=== PATIENT | male | born 1930 | race Caucasian/White ===

== ENCOUNTER 2016-07-11 00:30 | Emergency (ER) | payer OTHER, MEDICARE ==
[~2016-07-11] VITALS: Ht 170.2 cm; Wt 73.5 kg
[~2016-07-11 00:30] MED LIST: ANASTROZOLE1 M1 PO; ASPIRIN EC325 M2 PO; BALANCED B-1001 EACH PO; CALCIUM600 M3 PO; FISH OIL CONC1000 M1 PO; GINKGO BILOBA30 MG PO; LEVOTHROID0.025 MG PO; LOPRESSOR 25MG25 MG PO; METAMUCIL PACK3.4 GM PO; METOPROLOL PO; NIASPAN500 M1 PO; NIFEDIPINE ER30 M2 PO; PERCOCET MONOGRA5 MG PO; PRESERVISION A1 EAC1 PO; VITAMIN D31000 UNI2 PO; ZANTAC150 M1 PO
--- NOTE | 2016-07-11 00:35 | ED AMS/SEIZURE/WEAK/DIZZY ---
History of Present Illness General Chief Complaint: General Adult Stated Complaint: " BIBA PER EMS WEAKNESS" Source: patient Exam Limitations: no limitations Vital Signs & Intake/Output Vital Signs & Intake/Output Vital Signs Date Time Temp Pulse Resp B/P Pulse O2 O2 Flow FiO2 Ox Delivery Rate 07/11 1104 75 18 144/68 96 Room Air 07/11 0801 97.1 82 18 115/69 98 Room Air 07/11 0703 97.7 61 18 145/71 95 Room Air 07/11 0106 100 Room Air 07/11 0050 98.8 81 18 148/75 94 Room Air Allergies Coded Allergies: lansoprazole (UPSET STOMACH 09/02/15) lovastatin (UPSET STOMACH 09/02/15) rosuvastatin (UPSET STOMACH 09/02/15) alendronate sodium (UPSET STOMACH 09/02/15) esomeprazole (UPSET STOMACH 09/02/15) ezetimibe (UPSET STOMACH 09/02/15) fenofibrate (UPSET STOMACH 09/02/15) Reconcile Medications Anastrozole 1 MG TAB 1 TAB PO DAILY breast cancer (Reported) Aspirin (Ecotrin) 325 MG ECT 1 PO DAILY HEART HEALTH (Reported) [CALCIUM] 600 MG 1 PO TID SUPPLEMENT (Reported) Cholecalciferol (Vitamin D3) 1,000 UNIT TABLET 3 PO DAILY SUPPLEMENT ( Reported) Fish Oil (Fish Oil Concentrate) 1,000 MG SGL 1 PO BID SUPPLEMENY (Reported) Ginkgo Biloba (Ginkgo Biloba Extract) 30 MG TAB 1 PO DAILY SUPPLEMENT ( Reported) Levothyroxine Sodium (Levothroid) 0.025 MG TAB 0.025 MG PO DAILY AC hypothyroidism Metoprolol Tartrate (Lopressor) 25 MG TAB 25 MG PO BID HTN Niacin (Niaspan) [address] TAB PO DAILY SUPPLEMENT (Reported) Nifedipine (Nifedipine ER) 30 MG TAB.ER.24 1 TAB PO DAILY BLOOD PRESSURE ( Reported) Oxycodone/Acetaminophen (Percocet 5-325 MG Tablet) 5 MG-325 MG TABLET 1-2 TAB PO Q4P PRN PAIN [PRESERVISION] 2 PO DAILY (Reported) Psyllium Hydrophylic Muciloid (Metamucil Packet) 3.4 GRAM POWD.PACK 1 PO DAILY BOWEL HEALTH (Reported) Ranitidine (Zantac) 150 MG TABLET 1 PO DAILY ACID REFLUX (Reported) Vitamin B Complex 1 EACH CAPSULE 1 PO DAILY SUPPLEMENT (Reported) Triage Nurses Notes Reviewed? yes Onset: Abrupt Duration: minute(s): Timing: single episode today Injury Environment: home Severity: moderate Modifying Factors: Improves With: rest. Associated Symptoms: i COULDN'T MOVE BOTH MY LEGS. bUT NOW i FEEL FINE HPI: 86yo gentleman presents with feeling very weak for the past few days, and then tonight he couldn't stand to use the bathroom. "My legs were very weak, both of them. It was hard to stand. But then after a couple minutes, I felt better." He notes that the symptoms started around 7 PM and then self resolved in around 30 minutes. He notes that he felt no chest pain dizziness shortness of breath lightheadedness. He is otherwise well. (JORGE A HARRELL,MARGA Caputo) Past History Travel History Traveled to [place] past 21 day No Medical History Any Pertinent Medical History? see below for history Neurological: NONE EENT: NONE Cardiovascular: hypertension, hyperlipidemia, myocardial infarction, NSTEMI Respiratory: NONE Gastrointestinal: GERD Hepatic: NONE Renal: NONE Musculoskeletal: NONE Psychiatric: NONE Endocrine: NONE Blood Disorders: NONE Cancer(s): breast cancer, prostate cancer FINGERPRINT CLASSIFIER/Reproductive: NONE History of MRSA: No History of VRE: No History of CDIFF: No Tetanus Vaccine: 11/01/11 Surgical History Surgical History: hernia repair-umbilical, masectomy Psychosocial History Who do you live with Family Services at Home None What is your primary language Nepali Family History Hx Contributory? No (JORGE A HARRELL,MARGA Caputo) Review of Systems Review of Systems Constitutional: Reports: no symptoms. EENTM: Reports: no symptoms. Respiratory: Reports: no symptoms. Cardiovascular: Reports: no symptoms. GI: Reports: no symptoms. Genitourinary: Reports: no symptoms. Musculoskeletal: Reports: no symptoms. Skin: Reports: no symptoms. Neurological/Psychological: Reports: no symptoms. Hematologic/Endocrine: Reports: no symptoms. Immunologic/Allergic: Reports: no symptoms. All Other Systems: Reviewed and Negative (JORGE A HARRELL,MARGA Caputo) Physical Exam Physical Exam General Appearance: well developed/nourished, no apparent distress Head: atraumatic, normal appearance Eyes: Bilateral: normal appearance. Ears, Nose, Throat: normal pharynx, normal ENT inspection Neck: normal inspection, supple, full range of motion Respiratory: normal breath sounds, chest non-tender, no respiratory distress, quiet respiration Cardiovascular: regular rate/rhythm Gastrointestinal: normal bowel sounds, soft, non-tender Back: normal inspection Extremities: normal range of motion Neurologic/Psych: no motor/sensory deficits, awake, alert, oriented x 3 Skin: intact, normal color, warm/dry Core Measures ACS in differential dx? No CVA/TIA Diagnosis: No Severe Sepsis Present: No Septic Shock Present: No (JORGE A HARRELL,MARGA Caputo) Progress Differential Diagnosis: electrolyte abnormality, dehydration, UTI versus other. Plan of Care: Orders Procedure Date/time Status Regular Diet 07/11 B Active PT Evaluate & Treat 07/11 653 Active CASE MANAGEMENT CONSULT 07/11 653 Active URINALYSIS 07/11 34 Complete TROPONIN LEVEL 07/11 34 Complete LIPASE 07/11 34 Complete HEPATIC FUNCTION PANEL 07/11 34 Complete CBC WITHOUT DIFFERENTIAL 07/11 34 Complete BASIC METABOLIC PANEL 07/11 34 Complete AMYLASE 07/11 34 Complete EKG 07/11 34 Active Gait Training, 15 Min 07/11 UNK Complete PT EVAL LOW COMPLEX 20 MIN 07/11 UNK Complete Laboratory Tests 07/11/16 0258: Urinalysis LIGHT H, Urine Color YEL, Urine Clarity CLEAR, Urine pH 7.5, Ur Specific [place] 1.015, Urine Protein TRACE H, Urine Ketones NEG, Urine Nitrite NEG, Urine Bilirubin NEG, Urine Urobilinogen 0.2, Ur Leukocyte Esterase NEG, Ur Microscopic SEDIMENT EXAMINED, Urine RBC 1-3, Urine WBC 1-3 H, Urine Hemoglobin NEG, Urine Glucose NEG 07/11/16 0050: Anion Gap 9, Estimated GFR > 60, BUN/Creatinine Ratio 18.9, Glucose 111 H, Calcium 9.7, Total Bilirubin 0.6, Direct Bilirubin 0.4, AST 36, ALT 38, Alkaline Phosphatase 70, Troponin I < 0.01, Total Protein 7.5, Albumin 4.0, Amylase 86, Lipase 111, CBC w Diff NO MAN DIFF REQ, RBC 4.54 L, MCV 94.5 H, MCH 33.0 H, RDW 12.8, MPV 6.9 L, Gran % 82.0 H, Lymphocytes % 6.8 L, Monocytes % 9.9 H, Eosinophils % 1.3, Basophils % 0 L, Absolute Granulocytes 7.1 H, Absolute Lymphocytes 0.6 L, Absolute Monocytes 0.9 H, Absolute Eosinophils 0.1, Absolute Basophils 0, PUBS MCHC 34.9 Diagnostic Imaging: Viewed by Me: Radiology Read, CT Scan. Discussed w/RAD: Radiology Read, CT Scan. Radiology Impression: HEAD CT... NO ACUTE DISEASE... FULL REPORT BELOW Initial ED EKG: normal axis, normal intervals, normal p-waves, normal QRS complex, normal sinus rhythm Hand-Off Endorsed To: SUKHWINDER VARGAS MD Endorsed Time: 0700 Pending: consult, other (PT and case management) Comments: PATIENT: GABRIEL ARORA PRESENT AGE: 86 PATIENT ACCOUNT NO: [id number] : [birth year] LOCATION: [facility], [place] ORDERING PHYSICIAN: MARGA JULES MD SERVICE DATE: 07/11/16 EXAM TYPE: CAT - CT HEAD WO IV CONTRAST EXAMINATION: CT HEAD WITHOUT CONTRAST CLINICAL INFORMATION: Weakness in the lower extremities. COMPARISON: Head CT 02/17/2015 TECHNIQUE: Contiguous axial imaging was performed from the skull base to vertex without intravenous administration of contrast. FINDINGS: There is no intracranial hemorrhage, hydrocephalus, midline shift, or other herniation pattern. Stable chronic fluid density extra-axial collection along the right frontoparietal convexity resulting in unchanged mild mass effect on the right frontal and parietal lobes. Mild chronic microangiopathy. Stable indeterminate 8 mm focus of intermediate density within the right suprasellar cistern which did not correspond to an aneurysm on the CTA of the head from 10/22/2014. Titus to white matter differentiation is diffusely maintained without evidence of an evolved acute territorial infarct. The basilar cisterns are preserved. No significant soft tissue abnormality. No acute osseous abnormality. The paranasal sinuses and the mastoid air cells are well-aerated. IMPRESSION: No acute intracranial abnormality. Mild chronic microangiopathy. Stable chronic fluid density extra-axial collection along the right frontoparietal convexity resulting in unchanged mild mass effect on the right frontal and parietal lobes. Stable indeterminate 8 mm focus of intermediate density within the right suprasellar cistern which did not correspond to an aneurysm on the CTA of the head from 10/22/2014. DICTATED BY: HAYLEE GÓMEZ MD DATE/TIME DICTATED:07/11/16Carissa LOSS PREVENTION AGENT:CLYDE DATE/TIME TRANSCRIBED:07/11/16205 CONFIDENTIAL, DO NOT COPY WITHOUT APPROPRIATE AUTHORIZATION. <Electronically signed in Other Vendor System> SIGNED BY: HAYLEE GÓMEZ MD 07/11/16215 (JORGE A HARRELL,MARGA Caputo) Departure Departure Disposition: HOME OR SELF CARE Condition: Stable Clinical Impression Primary Impression: Weakness Referrals: ALEX HARRELL,МАРИЯ Ruelas (PCP/Family) Departure Forms: Customer Survey General Discharge Information Comments jul 11, 2016, 4:39am... Patient reports that he is feeling better. His strength in his legs is 5/5. Given his story and his evaluation, I doubt CVA, tia. He merits pt/ot consult, case management. (JORGE A HARRELL,MARGA Caputo) Departure Time of Disposition: 1150 (ALICIA HARRELL,SUKHWINDER)
[2016-07-11 01:10] LABS: ABSOLUTE BASOPHIL COUNT 0 /CUMM (0.0-0.2); ABSOLUTE EOSINOPHIL COUNT 0.1 /CUMM (0.0-0.7); ABSOLUTE GRANULOCYTE CT 7.1 /CUMM (1.4-6.5); ABSOLUTE LYMPH COUNT 0.6 /CUMM (1.2-3.4); ABSOLUTE MONOCYTE COUNT 0.9 /CUMM (0.10-0.60); BASOPHIL % 0 % (0.0-2.0); EOSINOPHIL % 1.3 % (0-5); HEMATOCRIT 42.9 % (42-52); MEAN CORPUSCULAR HGB CONC 34.9 G/DL (33.0-37.0); MEAN CORPUSCULAR VOLUME 94.5 FL (80.0-94.0); MEAN PLATELET VOLUME 6.9 FL (7.4-10.4); PLATELET COUNT 216 /CUMM (130-400); RBC DISTRIBUTION WIDTH 12.8 % (11.5-14.5); RED BLOOD CELL CT 4.54 /CUMM (4.70-6.10); WHITE BLOOD CELL COUNT 8.7 /CUMM (4.8-10.8)
--- NOTE | 2016-07-11 01:48 | RADIOLOGY REPORT ---
EXAMINATION: XR PORTABLE CHEST CLINICAL INFORMATION: Dyspnea. COMPARISON: Chest x-ray 02/17/2015. TECHNIQUE: Portable AP view of the chest was obtained. FINDINGS: Diffuse interstitial markings appear more prominent with suspected superimposed mild interstitial pulmonary edema. Possible small left pleural effusion. There is no pneumothorax. Cardiac silhouette size is normal. There is atherosclerotic calcification within the aortic arch. There are no acute osseous findings. IMPRESSION: Imaging findings suggest mild interstitial pulmonary edema superimposed on chronic interstitial changes. Possible small left pleural effusion.
--- NOTE | 2016-07-11 02:16 | CT SCAN REPORT ---
EXAMINATION: CT HEAD WITHOUT CONTRAST CLINICAL INFORMATION: Weakness in the lower extremities. COMPARISON: Head CT 02/17/2015 TECHNIQUE: Contiguous axial imaging was performed from the skull base to vertex without intravenous administration of contrast. FINDINGS: There is no intracranial hemorrhage, hydrocephalus, midline shift, or other herniation pattern. Stable chronic fluid density extra-axial collection along the right frontoparietal convexity resulting in unchanged mild mass effect on the right frontal and parietal lobes. Mild chronic microangiopathy. Stable indeterminate 8 mm focus of intermediate density within the right suprasellar cistern which did not correspond to an aneurysm on the CTA of the head from 10/22/2014. Titus to white matter differentiation is diffusely maintained without evidence of an evolved acute territorial infarct. The basilar cisterns are preserved. No significant soft tissue abnormality. No acute osseous abnormality. The paranasal sinuses and the mastoid air cells are well-aerated. IMPRESSION: No acute intracranial abnormality. Mild chronic microangiopathy. Stable chronic fluid density extra-axial collection along the right frontoparietal convexity resulting in unchanged mild mass effect on the right frontal and parietal lobes. Stable indeterminate 8 mm focus of intermediate density within the right suprasellar cistern which did not correspond to an aneurysm on the CTA of the head from 10/22/2014.
[2016-07-11 11:59] VITALS: BP 144/74
--- NOTE | 2016-07-11 13:00 | NUR ---
Case Mgmnt TSF: I set up patient with [facility]. They will go out on 07/12/16 to assess the patient and open services. I requested nursing and home pt to [facility]. Fax confirmation received.
== END 2016-07-11 12:01 ==
LOC: ERH 00:30
PROVIDERS: Pediatrics
DX: R53.1 Weakness (principal)
CPT/HCPCS: 81001; 93005; 93010; 97116-GP; 97161-GP; G8978-GP; G8979-GP; G8980-GP

== ENCOUNTER 2016-09-16 12:33 | Inpatient (IN) | payer OTHER, MEDICARE ==
[~2016-09-16] VITALS: Ht 170.2 cm; Wt 73.0 kg
--- NOTE | 2016-09-16 12:47 | NUR ---
FERCHO BY AMBULANCE FORM HOME, C/O WEAKNESS X 2 DAYS, WITH DIFFICULTY WALKING TODAY. RECENTLY DXD WITH SHINGLES (5 DAYS AGO), BY DR. JOHNSON. NOT PLACED ON ANY RX. ALERT, DENIES PAIN, PLACED ON MONITOR. SINUS RHYTHM EKG DONE ON ARRIVAL. RED, RASH WITH WHITE PUSTULES NOTED ON CHEST AND R SIDE OF BACK.
--- NOTE | 2016-09-16 13:00 | NUR ---
PER , PT HAS SIMILIAR EPSIODE OF WEAKNESS 2 MONTHS AGO WITH A FALL.
[2016-09-16 13:46] LABS: ABSOLUTE BASOPHIL COUNT 0 /CUMM (0.0-0.2); ABSOLUTE EOSINOPHIL COUNT 0 /CUMM (0.0-0.7); ABSOLUTE GRANULOCYTE CT 4.2 /CUMM (1.4-6.5); ABSOLUTE LYMPH COUNT 0.5 /CUMM (1.2-3.4); ABSOLUTE MONOCYTE COUNT 0.6 /CUMM (0.10-0.60); BASOPHIL % 0 % (0.0-2.0); EOSINOPHIL % 0.5 % (0-5); GRANULOCYTE % 78.8 % (42.2-75.2); HEMATOCRIT 50.8 % (42-52); MEAN CORPUSCULAR HGB 32.6 PG (27.0-31.0); MEAN CORPUSCULAR HGB CONC 34.3 G/DL (33.0-37.0); PLATELET COUNT 167 /CUMM (130-400); RBC DISTRIBUTION WIDTH 13.7 % (11.5-14.5); RED BLOOD CELL CT 5.35 /CUMM (4.70-6.10); WHITE BLOOD CELL COUNT 5.4 /CUMM (4.8-10.8)
--- NOTE | 2016-09-16 13:51 | NUR ---
BLOODWORK DRAWN/SENT TO LAB BY MINNA DELATORRE. IVF'S NS 1L INFUSING WITHOUT DIFFICULTY AT THIS TIME. PT HAS RIGHT ARM RESTRICTION D/T MASTECTOMY.
[2016-09-16] MEDS ORDERED: METOPROLOL TART25 M1 PO (13:55)
[2016-09-16] MEDS ORDERED: LEVOTHYROXINE75 MCG PO (14:03)
--- NOTE | 2016-09-16 14:03 | RADIOLOGY REPORT ---
EXAMINATION: XR PORTABLE CHEST CLINICAL INFORMATION: Weakness. Evaluate for pneumonia. COMPARISON: CXR from 07/11/2016. TECHNIQUE: Portable AP view of the chest was obtained. FINDINGS: No acute findings in the chest compared to the prior radiograph. The mid and upper lung zones are relatively lucent suggesting presence of chronic emphysema. There are chronic reticular opacities that predominate within the lower lung zones; findings are compatible with chronic interstitial fibrosis. No acute airspace opacification or pleural effusion. Cardiac silhouette is normal in size. There is atherosclerotic calcification of the aorta. The visualized bones are intact. IMPRESSION: 1. No evidence of acute pneumonia. 2. Chronic interstitial lung disease and probable chronic emphysema, as well. Overall, no acute findings in the chest compared to 07/11/2016.
[2016-09-16] MEDS ORDERED: FUROSEMIDE20 M1 PO (14:04)
--- NOTE | 2016-09-16 14:21 | ED AMS/SEIZURE/WEAK/DIZZY ---
History of Present Illness General Chief Complaint: General Adult Stated Complaint: WEAKNESS Source: patient, family, old records, EMS Exam Limitations: no limitations Vital Signs & Intake/Output Vital Signs & Intake/Output Vital Signs Date Time Temp Pulse Resp B/P Pulse O2 O2 Flow FiO2 Ox Delivery Rate 09/16 1417 98.3 98 18 177/84 92 Room Air 09/16 1234 99.3 99 18 195/93 94 Room Air Allergies Coded Allergies: lansoprazole (UPSET STOMACH 09/02/15) lovastatin (UPSET STOMACH 09/02/15) rosuvastatin (UPSET STOMACH 09/02/15) alendronate sodium (UPSET STOMACH 09/02/15) esomeprazole (UPSET STOMACH 09/02/15) ezetimibe (UPSET STOMACH 09/02/15) fenofibrate (UPSET STOMACH 09/02/15) Reconcile Medications Anastrozole 1 MG TABLET 1 TAB PO DAILY CANCER (Reported) Aspirin (Ecotrin*) 325 MG TABLET.DR 1 TAB PO DAILY HEART (Reported) Calcium (Elemental-Fr Calcarb) (Calcium) 600 MG CALCIUM (1,500 MG) TABLET 1 TAB PO TID SUPPLEMENT (Reported) Cholecalciferol (Vitamin D3) 1,000 UNIT TABLET 3 TAB PO DAILY SUPPLEMENT ( Reported) Furosemide 20 MG TABLET 1 TAB PO Q48 WATER PILL (Reported) Ginkgo Biloba Mathews Extract (Ginkgo Biloba) 30 MG CAPSULE 1 CAP PO DAILY SUPPLEMENT (Reported) Levothyroxine Sodium 75 MCG TABLET 1 TAB PO DAILY AC THYROID (Reported) Metoprolol Tartrate 25 MG TABLET 1 TAB PO BID HTN (Reported) Niacin (Niaspan) 500 MG TAB.ER.24H 2 CAP PO DAILY SUPPLEMENT (Reported) Nifedipine (Nifedipine ER) 30 MG TAB.ER.24 1 TAB PO DAILY BP (Reported) Dana-3 Fatty Acids (Fish Oil Concentrate) 1,000 MG CAPSULE 2 CAP PO DAILY SUPPLEMENT (Reported) Psyllium Hydrophylic Muciloid (Metamucil Packet) 3.4 GRAM POWD.PACK 1 PAC PO DAILY GI (Reported) Ranitidine HCl (Zantac) 150 MG TABLET 1 TAB PO DAILY ACID REFLUX (Reported) Vit C/E/Zn/Coppr/Lutein/Zeaxan (Preservision Areds 2 Softgel) 250-200-40 CAPSULE 1 CAP PO BID EYE (Reported) Vitamin B Complex & Vit C No.3 (Balanced B Complex-Vit C) 15-10-300 TABLET.ER 1 TAB PO DAILY SUPPLEMENT (Reported) Core Measure Meds Pre-Hospital aspirin Triage Note: BIBA BY AMBULANCE FORM HOME, C/O WEAKNESS X 2 DAYS, WITH DIFFICULTY WALKING TODAY. RECENTLY DXD WITH SHINGES (5 DAYS AGO). NOT PLACED ON ANY RX. ALERT, DENIES PAIN, PLACED ON MONITOR. SINUS RHYTHM EKGT DONE ON ARRIVAL. Triage Nurses Notes Reviewed? yes Onset: Just prior to arrival Duration: minute(s):, constant, continues in ED Timing: recent history Injury Environment: home Severity: severe Modifying Factors: Improves With: rest. HPI: 5 days prior to admission he was diagnosed with shingles over his chest and back. Patient awoke with generalized weakness especially in the lower extremities unable to get out of bed. He denies fever chills nausea vomiting diarrhea abdominal pain chest pain shortness of breath headache dysuria bleeding fall change in bowel bladder habit change in sensory function. Past History Travel History Traveled to [place] past 21 day No Medical History Any Pertinent Medical History? see below for history Neurological: NONE EENT: NONE Cardiovascular: hypertension, hyperlipidemia, myocardial infarction, NSTEMI Respiratory: NONE Gastrointestinal: GERD Hepatic: NONE Renal: NONE Musculoskeletal: NONE Psychiatric: NONE Endocrine: NONE Blood Disorders: NONE Cancer(s): breast cancer, prostate cancer KITCHENHAND/Reproductive: NONE History of MRSA: No History of VRE: No History of CDIFF: No Tetanus Vaccine: 11/01/11 Surgical History Surgical History: hernia repair-umbilical, masectomy Psychosocial History Who do you live with Family Services at Home None What is your primary language Israeli Tobacco Use: Quit >30 days ago ETOH Use: occasional use Family History Hx Contributory? No Review of Systems Review of Systems Constitutional: Reports: see HPI, weakness. EENTM: Reports: no symptoms. Respiratory: Reports: no symptoms. Cardiovascular: Reports: no symptoms. GI: Reports: no symptoms. Genitourinary: Reports: no symptoms. Musculoskeletal: Reports: no symptoms. Skin: Reports: see HPI, rash. Neurological/Psychological: Reports: no symptoms. Hematologic/Endocrine: Reports: no symptoms. Immunologic/Allergic: Reports: no symptoms. All Other Systems: Reviewed and Negative Physical Exam Physical Exam General Appearance: well developed/nourished, alert, awake, anxious, moderate distress Head: atraumatic, normal appearance Eyes: Bilateral: normal appearance, PERRL, EOMI. Ears, Nose, Throat: normal pharynx, normal ENT inspection Neck: normal inspection, supple, full range of motion, no midline tenderness Respiratory: normal breath sounds, chest non-tender, no respiratory distress, quiet respiration, lungs clear, decreased breath sounds Cardiovascular: regular rate/rhythm, normal peripheral pulses, norml femoral pulses equa Peripheral Pulses: 4+ carotid (R), 4+ carotid (L) Gastrointestinal: normal bowel sounds, soft, non-tender, no organomegaly Back: normal inspection, normal range of motion Extremities: normal range of motion, no ligament instability Neurologic/Psych: awake, alert, oriented x 3, normal gait, normal mood/affect, motor weakness (bilateral lower extremities) Reflexes: 2+: bicep (R), bicep (L). Skin: rash, T 3-5 distribution herpetiform rash over anterior chest and back Lymphatic: no anterior cervical agnieszka Core Measures ACS in differential dx? No CVA/TIA Diagnosis: No Severe Sepsis Present: No Septic Shock Present: No Progress Differential Diagnosis: dehydration, drug intoxication, electrolyte imbalance, hypoglycemia, hypoxia, presyncope Plan of Care: Orders Procedure Date/time Status Regular Diet 09/16 L Active PT Evaluate & Treat 09/16 1351 Active TOTAL TRIODOTHYROXINE 09/16 1331 Complete FREE T4 09/16 1331 Complete MISTAKE 09/16 1326 Active BLOOD CULTURE 09/16 1326 Active URINALYSIS 09/16 1326 Complete TSH REFLEX 09/16 1326 Complete TROPONIN LEVEL 09/16 1326 Complete MAGNESIUM 09/16 1326 Complete COMPREHENSIVE METABOLIC PANEL 09/16 1326 Complete CBC WITHOUT DIFFERENTIAL 09/16 1326 Complete EKG 09/16 1234 Active Laboratory Tests 09/16/16 1442: Urinalysis MANY H, Urine Color YEL, Urine Clarity HAZY H, Urine pH 7.5, Ur Specific [place] 1.015, Urine Protein TRACE H, Urine Ketones TRACE H, Urine Nitrite NEG, Urine Bilirubin NEG, Urine Urobilinogen 0.2, Ur Leukocyte Esterase NEG, Ur Microscopic SEDIMENT EXAMINED, Urine RBC 1-3, Urine WBC 3-5 H, Urine Bacteria RARE H, Urine Hemoglobin NEG, Urine Glucose NEG 09/16/16 1331: Anion Gap 14, Estimated GFR > 60, BUN/Creatinine Ratio 17.0, Glucose 99, Calcium 10.6 H, Magnesium 1.7, Total Bilirubin 0.9, AST 48, ALT 38, Alkaline Phosphatase 95, Troponin I < 0.01, Total Protein 8.8 H, Albumin 4.7, Globulin 4.1, Albumin/Globulin Ratio 1.1, Free T4 1.61, Total T3 1.27, TSH &T3 &Free T4 Intrp 9.210 H, CBC w Diff NO MAN DIFF REQ, RBC 5.35, MCV 95.0 H, MCH 32.6 H, RDW 13.7, MPV 7.0 L, Gran % 78.8 H, Lymphocytes % 9.1 L, Monocytes % 11.6 H, Eosinophils % 0.5, Basophils % 0 L, Absolute Granulocytes 4.2, Absolute Lymphocytes 0.5 L, Absolute Monocytes 0.6, Absolute Eosinophils 0, Absolute Basophils 0, PUBS MCHC 34.3 Microbiology 09/16 1331 BLOOD: Blood Culture - RECD Diagnostic Imaging: Viewed by Me: Radiology Read. Discussed w/RAD: Radiology Read. CXR Impression: 1. No evidence of acute pneumonia. 2. Chronic interstitial lung disease and probable chronic emphysema, as well. Overall, no acute findings in the chest compared to 07/11/2016. Initial ED EKG: normal axis, normal intervals, normal p-waves, normal QRS complex, normal sinus rhythm, no ST T wave changes Prior EKG: unchanged Rhythm Strip: normal sinus rhythm Departure Departure Time of Disposition: 1616 Disposition: STILL A PATIENT Condition: Stable Clinical Impression Primary Impression: Hyponatremia syndrome Secondary Impressions: Hypothyroid Qualifiers: Hypothyroidism type: unspecified Qualified Code: E03.9 - Hypothyroidism, unspecified Multifactorial gait disorder Referrals: ALEX HARRELL,МАРИЯ Ruelas (PCP/Family) Departure Forms: Customer Survey General Discharge Information Admission Note Spoke With: BUDDY HARRELL,ELIS Pastrana Documentation of Exam: Documentation of any treatments & extenuating circumstances including Concerns Regarding Discharge (functional status, medication knowledge or non-compliance, living conditions, etc.) that warrant an admission rather than observation: Serial lab exam isolation precaution physical therapy patient able to ambulate with assistance but requires significant assistance getting in and out of bed ensure safety medication adjustment endocrinology evaluation continuing care discharge planning
--- NOTE | 2016-09-16 14:43 | NUR ---
PT AMBULATED IN ROOM WITH WALKER WTTH MINIMAL ASSISTANCE, ASSISTED OOB AND WAS ABLE TO SUPPORT WEIGHT WHILE WALKING. WALKED 16 STEPS. STATES HE FELT "LIGHTHEADED" WHEN HE FIRST SAT UP, SXS RESOLVED AFTER SITTING FOR A FEW MINUTES. VOIDED IN URINAL. UA SENT.
--- NOTE | 2016-09-16 15:38 | NUR ---
ASSUMED CARE OF PT, DINNER TRAY ORDERED BY NOVA BOLDEN, NO OTHER NEEDS AT THIS TIME.
--- NOTE | 2016-09-16 16:02 | NUR ---
DINNER TRAY AT BEDSIDE FOR PT, ASSISTING PT WITH SAME. PT ASSISTED WITH URINAL, 200 CC CLEAR YELLOW URINE OUT
--- NOTE | 2016-09-16 16:13 | NUR ---
2ND BAG NS HANGING
--- NOTE | 2016-09-16 16:16 | NUR ---
DR VARGAS TO BEDSIDE TO DISCUSS ADMISSION
--- NOTE | 2016-09-16 17:37 | NUR ---
PT HAS BED ASSIGNMENT 216-2
--- NOTE | 2016-09-16 18:08 | Admission Certification ---
Admission Certification Certification Statement - As attending physician, I certify that at the time of - admission, based on clinical presentation, severity of - symptoms, need for further diagnostic testing and - therapeutic interventions, and risk of adverse outcomes - without in-hospital treatment, in my clinical assessment, - this patient requires an acute hospital stay for a minimum - of two nights or longer. I have also considered psychsocial - factors such as support system, advanced age, financial - issues, cognitive issues, and failed out-patient treatments, - past re-admission history, safety of patient, and lack of - compliance as applicable. Specific rationale supporting this admission is: Hyponatremia, hypercalcemia, generalized weakness with inability to ambulate and dehydration.
--- NOTE | 2016-09-16 18:15 | PN- Att Addend ---
Attending MD Review Statement Attending Statement Attending MD Statement: examined this patient, discuss w/resident/PA/VOLLEYBALL REFEREE, agreed w/resident/PA/VOLLEYBALL REFEREE, discussed with family, reviewed EMR data (avail), discussed w/ nursing Attending Assessment/Plan: Laboratory Tests 09/16/16 1442: Urinalysis MANY H, Urine Color YEL, Urine Clarity HAZY H, Urine pH 7.5, Ur Specific Pearson 1.015, Urine Protein TRACE H, Urine Ketones TRACE H, Urine Nitrite NEG, Urine Bilirubin NEG, Urine Urobilinogen 0.2, Ur Leukocyte Esterase NEG, Ur Microscopic SEDIMENT EXAMINED, Urine RBC 1-3, Urine WBC 3-5 H, Urine Bacteria RARE H, Urine Hemoglobin NEG, Urine Glucose NEG 09/16/16 1331: Anion Gap 14, Estimated GFR > 60, BUN/Creatinine Ratio 17.0, Glucose 99, Serum Osmolality 274 L, Calcium 10.6 H, Magnesium 1.7, Total Bilirubin 0.9, AST 48, ALT 38, Alkaline Phosphatase 95, Troponin I < 0.01, Total Protein 8.8 H, Albumin 4.7, Globulin 4.1, Albumin/Globulin Ratio 1.1, Free T4 1.61, Total T3 1.27, TSH &T3 &Free T4 Intrp 9.210 H, CBC w Diff NO MAN DIFF REQ, RBC 5.35, MCV 95.0 H, MCH 32.6 H, RDW 13.7, MPV 7.0 L, Gran % 78.8 H, Lymphocytes % 9.1 L , Monocytes % 11.6 H, Eosinophils % 0.5, Basophils % 0 L, Absolute Granulocytes 4.2, Absolute Lymphocytes 0.5 L, Absolute Monocytes 0.6, Absolute Eosinophils 0, Absolute Basophils 0, PUBS MCHC 34.3 Vital Signs Date Time Temp Pulse Resp B/P Pulse O2 O2 Flow FiO2 Ox Delivery Rate 09/16 1659 114 18 179/85 92 Room Air 09/16 1417 98.3 98 18 177/84 92 Room Air 09/16 1234 99.3 99 18 195/93 94 Room Air 86-year-old male with past medical history of breast cancer and prostate cancer brought in by for generalized weakness and inability to ambulate. Patient in emergency room was found to have a sodium of 129 and calcium of 10.7 and hemoglobin of 17. According to the patient's patient started having shingles about 5 days ago and was seen by the PCP who decided not to treat the shingles. On examination patient has lesions of the shingles on both the front of the chest as well as at the back and has crusting on the lesions. Looks like there are no new lesions in the last 1 or 2 days. We will admit the patient for hyponatremia, hypercalcemia and severe dehydration with generalized weakness. We will start him on IV fluids and hold his Lasix as well as hold his calcium and vitamin D supplementation. We will get a vitamin D level as well as PTH level. We'll also get physical therapy consult. Discussed with patient as well as patient's the care plan.
--- NOTE | 2016-09-16 18:49 | History & Physical ---
See Addendum General Information and HPI MD Statement: I have seen and personally examined GABRIEL ARORA and documented this H&P. The patient is a 86 year old M who presented with a patient stated chief complaint of denies weakness, lethargy for 1-2 days []. Source of Information: patient, family Exam Limitations: no limitations History of Present Illness: Patient is 86-year-old gentleman with past medical history significant for hypertension, anxiety and depression, hypothyroidism, history of breast cancer and status post radiation and mastectomy 2 years ago, history of breast cancer recently seen in ER for generalized weakness 2 months ago came in today with chief complaint of generalized weakness and lethargy for 2 days. Patient endorses that he noticed to have rash on his back started on Wednesday and progressively it was spreading to worse upper chest and he went to see his PCP on Wednesday but was not prescribed any antiretrovirals and was sent home. He was very weak and lethargic since yesterday and this morning he was not able to get up from bed. He denied any fall but admits that he had a fall 2 months ago where he came to the emergency room and was sent home on home health services and he was getting physical therapy and also health aide and visiting every week until last week. He uses walker when he goes for grocery otherwise he can walk at home. He denied any fever, chills, cough, chest pain, headache, any urinary or bowel complaints. He denied any sick contact. Patient was very tearful during interview but denied any suicidal/homicidal ideation but mentioned that by seeing shingles and he feels like his breast cancer his back. He denied any anorexia, recent weight loss. Patient is compliant with his medications and lives at home with his . He admits that he became dizzy for he frequently but not change from his baseline. He denied any decrease fluid intake. Allergies/Medications Allergies: Coded Allergies: lansoprazole (UPSET STOMACH 09/02/15) lovastatin (UPSET STOMACH 09/02/15) rosuvastatin (UPSET STOMACH 09/02/15) alendronate sodium (UPSET STOMACH 09/02/15) esomeprazole (UPSET STOMACH 09/02/15) ezetimibe (UPSET STOMACH 09/02/15) fenofibrate (UPSET STOMACH 09/02/15) Home Med list Anastrozole 1 MG TABLET 1 TAB PO DAILY CANCER (Reported) Aspirin (Ecotrin*) 325 MG TABLET.DR 1 TAB PO DAILY HEART (Reported) Calcium (Elemental-Fr Calcarb) (Calcium) 600 MG CALCIUM (1,500 MG) TABLET 1 TAB PO TID SUPPLEMENT (Reported) Cholecalciferol (Vitamin D3) 1,000 UNIT TABLET 3 TAB PO DAILY SUPPLEMENT ( Reported) Furosemide 20 MG TABLET 1 TAB PO Q48 WATER PILL (Reported) Ginkgo Biloba [place] Extract (Ginkgo Biloba) 30 MG CAPSULE 1 CAP PO DAILY SUPPLEMENT (Reported) Levothyroxine Sodium 75 MCG TABLET 1 TAB PO DAILY AC THYROID (Reported) Metoprolol Tartrate 25 MG TABLET 1 TAB PO BID HTN (Reported) Niacin (Niaspan) 500 MG TAB.ER.24H 2 CAP PO DAILY SUPPLEMENT (Reported) Nifedipine (Nifedipine ER) 30 MG TAB.ER.24 1 TAB PO DAILY BP (Reported) [place]-3 Fatty Acids (Fish Oil Concentrate) 1,000 MG CAPSULE 2 CAP PO DAILY SUPPLEMENT (Reported) Psyllium Hydrophylic Muciloid (Metamucil Packet) 3.4 GRAM POWD.PACK 1 PAC PO DAILY GI (Reported) Ranitidine HCl (Zantac) 150 MG TABLET 1 TAB PO DAILY ACID REFLUX (Reported) Vit C/E/Zn/Coppr/Lutein/Zeaxan (Preservision Areds 2 Softgel) 250-200-40 CAPSULE 1 CAP PO BID EYE (Reported) Vitamin B Complex & Vit C No.3 (Balanced B Complex-Vit C) 15-10-300 TABLET.ER 1 TAB PO DAILY SUPPLEMENT (Reported) Compliance With Home Meds: FAIR Past History Travel History Traveled to [place] past 21 day No Medical History Neurological: NONE EENT: NONE Cardiovascular: hypertension, hyperlipidemia, myocardial infarction, NSTEMI Respiratory: NONE Gastrointestinal: GERD Hepatic: NONE Renal: NONE Musculoskeletal: NONE Psychiatric: NONE Endocrine: NONE Blood Disorders: NONE Cancer(s): breast cancer, prostate cancer LAUNDRY SORTER/Reproductive: NONE History of MRSA: No History of VRE: No History of CDIFF: No Isolation History: Contact Tetanus Vaccine: 11/01/11 Surgical History Surgical History: hernia repair-umbilical, masectomy Past Family/Social History Family History Relations & Conditions if any Relation not specified for: *No pertinent family history Psychosocial History Services at Home: None ETOH Use: occasional use Functional Ability ADLs Independent: dressing, eating, toileting, bathing. Ambulation: independent, cane, walker, non-ambulatory IADLs Independent: shopping, housework, finances, food prep, telephone, transportation , medication admin. Review of Systems Review of Systems Constitutional: Reports: malaise, weakness. Denies: chills. EENTM: Denies: blurred vision, double vision. Cardiovascular: Denies: chest pain, edema. Respiratory: Denies: cough, hemoptysis. GI: Denies: abdominal pain, bloating, constipation, diarrhea. Genitourinary: Denies: discharge, dysuria. Musculoskeletal: Denies: back pain, gout, joint pain. Skin: Reports: see HPI. Neurological/Psychological: Reports: see HPI. Exam & Diagnostic Data Last 24 Hrs of Vital Signs/I&O Vital Signs Date Time Temp Pulse Resp B/P Pulse O2 O2 Flow FiO2 Ox Delivery Rate 09/16 1831 114 18 138/73 93 Room Air 09/16 1659 114 18 179/85 92 Room Air 09/16 1417 98.3 98 18 177/84 92 Room Air 09/16 1234 99.3 99 18 195/93 94 Room Air Intake & Output 09/16 1600 04/05 0800 04/05 0000 Intake Total 1000 Output Total 300 Balance 700 Intake, IV 1000 Intake, Oral 0 Output, Urine 300 Patient 161 lb Weight Physical Exam General Appearance Alert, Oriented X3, Cooperative Skin vascular/pustular rash on anterofrontal chest and dermatomal fashion with crusting lesion HEENT Atraumatic, PERRLA, dry mucous membranes Neck Supple, No JVD Cardiovascular Regular Rate, Normal S1, Normal S2, No Murmurs Lungs dry rhonchi bilaterally Abdomen Soft, No Tenderness Neurological Normal Gait, Normal Speech, Strength at 5/5 X4 Ext, Sensation Intact Extremities No Clubbing, No Cyanosis, No Edema Body Front and Back (Adult) 1) 2) 3) Diagnostic Data EKG Results No acute EKG changes CXR Results SERVICE DATE: 09/16/16 EXAM TYPE: RAD - XRY-PORTABLE CHEST XRAY EXAMINATION: XR PORTABLE CHEST CLINICAL INFORMATION: Weakness. Evaluate for pneumonia. COMPARISON: CXR from 07/11/2016. TECHNIQUE: Portable AP view of the chest was obtained. FINDINGS: No acute findings in the chest compared to the prior radiograph. The mid and upper lung zones are relatively lucent suggesting presence of chronic emphysema. There are chronic reticular opacities that predominate within the lower lung zones; findings are compatible with chronic interstitial fibrosis. No acute airspace opacification or pleural effusion. Cardiac silhouette is normal in size. There is atherosclerotic calcification of the aorta. The visualized bones are intact. IMPRESSION: 1. No evidence of acute pneumonia. 2. Chronic interstitial lung disease and probable chronic emphysema, as well. Overall, no acute findings in the chest compared to 07/11/2016. Assessment/Plan Assessment: Patient is 86-year-old gentleman with past medical history significant for hypothyroidism, hypertension, prostate cancer, breast cancer status post mastectomy and radiation came with chief complaint of worsening weakness and skin rash on upper right back and right upper chest in a dermatomal fashion significant for shingles. We will admit patient on general medical floor and will take care for the following problems Problem #1 generalized weakness most likely due to deconditioning with multiple comorbidities in a patient with a history of cancer Problem #2 hyponatremia most likely hypovolemic hyponatremia Problem #3 hypercalcemia could be due to history of malignancy but. Rule out hyperparathyroidism Problem #4 history of breast cancer Problem #5 history of hypertension Problem #6 skin rash most likely shingles Problem #7 history of hypothyroidism Plan 1. We will start patient on IV hydration with normal saline at rate of 125 minute he liters per hour 2. We will trend WBCs and PEEP and monitor his electrolytes 3. We will check urine lites, serum osmolality 4. We will send vitamin D levels and also we will check PTH 5. We will request PT to evaluate the patient 6. We will request endocrinology Dr. nieves in the morning to evaluate the patient 7. We will continue his home medications except, calcium, furosemide and vitamin D 8. We will check patient for orthostatic hypotension 9. We will keep patient on contact because of shingles and some lesions are crusting and some are not and refill provide patient with adequate analgesia if needed. Patient is full code Heart healthy diet Pharmacological DVT prophylaxis As Ranked By This Provider Problem List: 1. Hyponatremia syndrome 2. Weakness 3. Hypothyroidism Qualifiers Hypothyroidism type: unspecified Qualified Code: E03.9 - Hypothyroidism, unspecified Core Measures/Miscellaneous Acute Coronary Syndrome ACS Diagnosis: No Cerebrovascular Accident CVA/TIA Diagnosis: No Congestive Heart Failure CHF Diagnosis: No Venous Thromboembolism VTE Risk Factors: Age > 40 No Mech VTE prophylaxis d/t: No contraindications No VTE Pharm Prophylaxis d/t: No contraindications VTE Diagnosis: No VTE Type: NONE VTE Confirmed by (Test): NONE Severe Sepsis Severe Sepsis Present: No Septic Shock Septic Shock Present: No Miscellaneous Documentation Attending Case Discussed With: BUDDY HARRELL,ELIS Pastrana Primary Care Physician: МАРИЯ JOHNSON MD Patient sees these Specialists Explosive Operator Bomb Level of Patient Care: General Medicine Resident Review Statement Resident Statement: examined this patient
--- NOTE | 2016-09-16 18:55 | NUR ---
PHARMACY CALLED FOR ARIMIDEX
--- NOTE | 2016-09-16 19:18 | NUR ---
PT MEDICATED WITH LOVENOX, ARIMIDEX PER EMAR. DENIES ANY NEEDS AT THIS TIME.
--- NOTE | 2016-09-16 19:52 | NUR ---
[place] CATH PLACED FOR PT COMFORT. ROOM DARKENED, PLAN FOR HOSPITAL BED IN ED EXPLAINED TO PT AND , BOTH EXPRESS UNDERSTANDING AND DENY ANY FURTHER NEEDS OR CONCERNS/
--- NOTE | 2016-09-16 21:29 | NUR ---
PT MOVED TO ROOM 10, PLACED IN HOSPITAL BED FOR COMFORT.
--- NOTE | 2016-09-16 22:13 | NUR ---
PT VSS, MEDICATED PER EMAR, URINE EMPTIED OF 900 CLEAR YELLOW CC'S. PT REQUESTING ROOM DARKENED AND DOOR "ALMOST CLOSED" TO SLEEP.
--- NOTE | 2016-09-16 23:58 | NUR ---
PT SLEEPING. RESP UNLABORED. NO APPARENT DISTRESS. WILL CONTINUE TO MONITOR
--- NOTE | 2016-09-17 01:30 | NUR ---
PT CONTINUES SLEEPING. RESP UNLABORED. SKIN WARM AND DRY. NO APPARENT DISTRESS. WILL CONTONUE TO MONITOR
--- NOTE | 2016-09-17 03:35 | NUR ---
PT APPEARS TO BE RESTING COMFORTBALY. RESP UNLBAORED. SKIN WARM AND DRY. PT DENIES PAIN.
--- NOTE | 2016-09-17 06:30 | NUR ---
PT A/O X4. RESP UNLABORED. SKIN WARM AND DRY. PT APPEARS COMFORTBALE. DENIES PAIN. NO APPARENT DISTRESS. WILL CONTINUE TO MONITOR.
[2016-09-17 07:39] LABS: ABSOLUTE BASOPHIL COUNT 0 /CUMM (0.0-0.2); ABSOLUTE EOSINOPHIL COUNT 0.1 /CUMM (0.0-0.7); ABSOLUTE GRANULOCYTE CT 3.5 /CUMM (1.4-6.5); ABSOLUTE LYMPH COUNT 0.7 /CUMM (1.2-3.4); MEAN CORPUSCULAR HGB 32.5 PG (27.0-31.0); RBC DISTRIBUTION WIDTH 14.2 % (11.5-14.5); RED BLOOD CELL CT 4.49 /CUMM (4.70-6.10); WHITE BLOOD CELL COUNT 5.2 /CUMM (4.8-10.8)
[2016-09-17 07:46] LABS: ABSOLUTE MONOCYTE COUNT 0.9 /CUMM (0.10-0.60); BASOPHIL % 0.3 % (0.0-2.0); GRANULOCYTE % 67.7 % (42.2-75.2); MEAN CORPUSCULAR HGB CONC 34.2 G/DL (33.0-37.0); MEAN CORPUSCULAR VOLUME 94.9 FL (80.0-94.0); MEAN PLATELET VOLUME 7.1 FL (7.4-10.4); PLATELET COUNT 151 /CUMM (130-400)
--- NOTE | 2016-09-17 07:46 | PN- Housestaff ---
DAO HARRELL,[facility] 09/17/16 0745: Subjective Follow-up For: Generalized weakness Hyponatremia Subjective: Patient seen and examined at bedside. He does not endorse any acute complaints including fever, chills, nausea, vomiting, increased rash, chest pain or palpitation, abdominal pain or dysuria. No acute overnight event reported by nursing staff. Review of Systems Constitutional: Reports: no symptoms. Objective Last 24 Hrs of Vital Signs/I&O Vital Signs Date Time Temp Pulse Resp B/P Pulse O2 O2 Flow FiO2 Ox Delivery Rate 09/17 1133 98.0 73 16 140/68 94 Room Air / 1021 97.7 79 20 136/63 04/ 1021 97.7 79 20 136/63 04/06 0711 156/88 04/06 0659 73 18 183/91 95 Room Air / 0336 97.5 89 16 157/88 95 / 0041 97.0 93 16 163/69 95 /05 2214 97.4 100 18 175/74 100 Room Air / 2213 100 175/74 04/05 1835 98.6 / 1831 114 18 138/73 93 Room Air / 1659 114 18 179/85 92 Room Air Intake & Output / 1600 04/06 0800 04/ 0000 Intake Total 360 Output Total 563 185 2465 Balance -90 -700 -1000 Intake, Oral 360 Output, Urine 089 119 4427 Patient 73.028 kg Weight Physical Exam General Appearance: Alert, Oriented X3, Cooperative, No Acute Distress Skin: erythematous pustular rash on the left posterior thoracic dermatomal area and left anterior thoracic chest area descending down to area of T-10. Some of the lesions are noted to be crusted. No active new vesicular rashes. Non tender HEENT: Atraumatic, PERRLA, EOMI, Mucous Membr. moist/pink Neck: Supple, No JVD, No thryomegaly Lymphatic: Cervical nl Cardiovascular: Regular Rate, Normal S1, Normal S2 Lungs: Clear to Auscultation, Normal Air Movement Abdomen: Normal Bowel Sounds, Soft, No Tenderness, No Hepatospenomegaly Neurological: Normal Speech, Sensation Intact Extremities: No Clubbing, No Cyanosis, Normal Pulses, No Tenderness/Swelling Vascular: Normal Pulses, Pulses Symmetrical Assessment/Plan Assessment: This is an 86-year-old gentleman with past medical history significant for hypothyroidism, hypertension, prostate cancer, breast cancer status post mastectomy and radiation came with chief complaint of worsening weakness and skin rash on upper right back and right upper chest in a dermatomal fashion significant for shingles. Patient was recently seen by PCP couple days ago and was determined that he did not require any antiviral medication for shingles. During presentation the ED patient's vitals were unremarkable. Physical examination suggested components of depression as patient had oral dry mucosa. Laboratory work was remarkable for hyponatremia, and hypocalcemia. Patient was admitted for evaluation and treatment of hyponatremia and generalized weakness. Assessment and plan #Hyponatremia Most likely secondary to hypovolemia hyponatremia. Urine lites suggestive of SIADH however due to active usage of furosemide, this is a false positive finding. Hypothyroidism can also induce hyponatremia however patient's TSH is not very remarkable high [address] will significantly impact the sodium levels. We'll decrease oral hydration to 75 mils per hour today and if patient has adequate fluid intake will consider stopping hydration tonight. #Generalized weakness Possibly multifactorial considering multiple comorbidities of patients including history of malignancy and this recent shingles infection. Patient was able to have a session of physical therapy today with a preliminary recommendation of either short-term rehabilitation or home PT if goals are metastases. We'll reassess tomorrow and if patient indeed will require short-term rehabilitation then possible discharge will be on Wednesday as this willfulfill the Medicare three-day mandatory Required for hospital stay. #Shingles infection Reported onset of a 5-6 days ago. In the absence of no new vesicular lesions, there is no indication to treat shingles that is more than 72 hours old. We'll continue symptomatic management of pain currently patient is not endorsing any pain around the area of rash. Patient is nonimmunocompromised and does not exhibit disseminated, therefore only standard precautions needed. Will institute tramadol 50 mg every 6-8 as patient reports taking this at home. # Hypercalcemia Mild hypercalcemia which resolved with hydration. Possible etiologies include malignancy-induced hypercalcemia supported by the negative feedback of the PTH. #History of hypothyroidism Currently on 88 g of levothyroxine with TSH elevated but not remarkably elevated and freed T4 and T3 normal. We'll reassess TSH in a couple days during nonacute stage and will consider dose adjustment (per endocrine recommendations) . #Disposition Will assess if goals are met tomorrow during PT (For home PT) and if not patient will be sent to short-term rehabilitation on Wednesday. Problem List: 1. Hyponatremia syndrome 2. Weakness Pain Ratin Pain Location: NONE Pain Goal: Remain pain free Pain Plan: PER PAIN PATHWAY Tomorrow's Labs & Rationales: BEP-trending hyponatremia [place] [facility] 09/17/16 1156: Attending MD Review Statement Attending Statement Attending MD Statement: examined this patient, discuss w/resident/PA/WIPING RAG WASHER, agreed w/resident/PA/WIPING RAG WASHER, discussed with family, reviewed EMR data (avail), discussed with nursing, discussed with case mgmt, reviewed images Attending Assessment/Plan: "86-year-old male with past medical history of breast cancer and prostate cancer brought in by for generalized weakness and inability to ambulate. Patient in emergency room was found to have a sodium of 129 and calcium of 10.7 and hemoglobin of 17. According to the patient's patient started having shingles about 5 days ago and was seen by the PCP who decided not to treat the shingles. On examination patient has lesions of the shingles on both the front of the chest as well as at the back and has crusting on the lesions. Looks like there are no new lesions in the last 1 or 2 days. We will admit the patient for hyponatremia, hypercalcemia and severe dehydration with generalized weakness. We will start him on IV fluids and hold his Lasix as well as hold his calcium and vitamin D supplementation. We will get a vitamin D level as well as PTH level. We'll also get physical therapy consult." 1. Hyponatremia improving 2/2 IVVD , continue to monitor na levels. correct Na 12 slowly, c/w gentle hydration 2. Hypercalcemia improved after hydration. asymptomatic 3. f/u pth levels. 4. Shingles not on antivirals, c/w suppotive care, pain meds as needed. 5. Hypothyroidsim resume home meds 6. General physical deconditioning PT eval and dc planning. 7. gi/dvt prophyalxis.
[2016-09-17 07:47] LABS: HEMATOCRIT 42.6 % (42-52)
--- NOTE | 2016-09-17 09:57 | NUR ---
BED ASSIGNMENT [id number]
--- NOTE | 2016-09-17 10:23 | NUR ---
REMAINS AWAKE ALERT [facility] ATE 100% OF BREAKFAST.
--- NOTE | 2016-09-17 10:37 | NUR ---
REPORT GIVEN DISTRIBUTION CVONTACTED/
--- NOTE | 2016-09-17 11:00 | NUR ---
PT ARRIVED TO FLOOR FROM ED. A & O X 3. ON RA. VSS. OPEN RASH NOTED TO RIGHT BACK EXTENDED AROUND TO RIGHT CHEST. DRAINAGE NOTED TO UPPER BACK. PLACED ON CONTACT PRECAUTIONS FOR DRAINAGE. DENIES PAIN AT THIS TIME. PER , HAS BEEN HAVING PAIN IN NECK RELATED TO CERVICAL ISSUES BUT HAS NOT HAD PAIN R/T SHINGLES. OOB WITH PT FOR SHORT DISTANCES WITH RW. ALPS PLACED. IVF HUNG. ORIENTED TO CALL SYSTEM. [place] CATHETER IN PLACE BUT WILL REMOVE AFTER PT FINISHES LUNCH. WILL MONITOR.
[2016-09-17 11:33] VITALS: BP 140/68
--- NOTE | 2016-09-17 13:44 | Cons- Endocrinology ---
General Information and HPI Consulting Request Date of Consult: 09/17/16 Requested By: Medical team Reason for Consult: evaluation and management of hypothyroidism and hypercalcemia. Source of Information: patient, family, old records Exam Limitations: no limitations History of Present Illness: Patient is 86-year-old gentleman with past medical history significant for hypertension, anxiety and depression, hypothyroidism on levothyroxine 88 mcg daily at home, history of breast cancer and status post radiation and mastectomy and history of prostate cancer , was admitted for generalized weakness and lethargy for 2 days. Blood work showed TSH 9.21, free T4 1.61 and TT3 1.21; calcium 10.6, albumin 8.8, sodium 129 and K 3.8, PTH 12.5 and 25 OH vitamin D 48.2. He is on NS at 75 ml/hour. Repeat blood work showed sodium 133, PTH 21.4, calcium 8.2. TSH 6.56 and free T4 1.37. In 06/2016, his TSH was 3.73 and free T4 1.23. Allergies/Medications Allergies: Coded Allergies: lansoprazole (UPSET STOMACH 09/02/15) lovastatin (UPSET STOMACH 09/02/15) rosuvastatin (UPSET STOMACH 09/02/15) alendronate sodium (UPSET STOMACH 09/02/15) esomeprazole (UPSET STOMACH 09/02/15) ezetimibe (UPSET STOMACH 09/02/15) fenofibrate (UPSET STOMACH 09/02/15) Home Med List: Anastrozole 1 MG TABLET 1 TAB PO DAILY CANCER (Reported) Aspirin (Ecotrin*) 325 MG TABLET.DR 1 TAB PO DAILY HEART (Reported) Calcium (Elemental-Fr Calcarb) (Calcium) 600 MG CALCIUM (1,500 MG) TABLET 1 TAB PO TID SUPPLEMENT (Reported) Cholecalciferol (Vitamin D3) 1,000 UNIT TABLET 3 TAB PO DAILY SUPPLEMENT ( Reported) Furosemide 20 MG TABLET 1 TAB PO Q48 WATER PILL (Reported) Ginkgo Biloba [place] Extract (Ginkgo Biloba) 30 MG CAPSULE 1 CAP PO DAILY SUPPLEMENT (Reported) Levothyroxine Sodium 75 MCG TABLET 1 TAB PO DAILY AC THYROID (Reported) Metoprolol Tartrate 25 MG TABLET 1 TAB PO BID HTN (Reported) Niacin (Niaspan) 500 MG TAB.ER.24H 2 CAP PO DAILY SUPPLEMENT (Reported) Nifedipine (Nifedipine ER) 30 MG TAB.ER.24 1 TAB PO DAILY BP (Reported) [place]-3 Fatty Acids (Fish Oil Concentrate) 1,000 MG CAPSULE 2 CAP PO DAILY SUPPLEMENT (Reported) Psyllium Hydrophylic Muciloid (Metamucil Packet) 3.4 GRAM POWD.PACK 1 PAC PO DAILY GI (Reported) Ranitidine HCl (Zantac) 150 MG TABLET 1 TAB PO DAILY ACID REFLUX (Reported) Vit C/E/Zn/Coppr/Lutein/Zeaxan (Preservision Areds 2 Softgel) 250-200-40 CAPSULE 1 CAP PO BID EYE (Reported) Vitamin B Complex & Vit C No.3 (Balanced B Complex-Vit C) 15-10-300 TABLET.ER 1 TAB PO DAILY SUPPLEMENT (Reported) Review of Systems Review of Systems Constitutional: Reports: malaise, weakness. Cardiovascular: Denies: chest pain. Respiratory: Denies: short of breath. GI: Denies: abdominal pain. Genitourinary: Denies: dysuria. Hematologic/Endocrine: Denies: polyuria, polydipsia. Past History Travel History Traveled to [place] past 21 day No Medical History Neurological: NONE EENT: NONE Cardiovascular: hypertension, hyperlipidemia, myocardial infarction, NSTEMI Respiratory: NONE Gastrointestinal: GERD Hepatic: NONE Renal: NONE Musculoskeletal: NONE Psychiatric: NONE Endocrine: NONE Blood Disorders: NONE Cancer(s): breast cancer, prostate cancer PAN GREASER/Reproductive: NONE Surgical History Surgical History: hernia repair-umbilical, masectomy Family History Relations & Conditions If Any: Relation not specified for: *No pertinent family history Psychosocial History Services at Home: None Smoking Status: Former Smoker ETOH Use: occasional use Functional Ability ADLs Independent: dressing, eating, toileting, bathing. Ambulation: independent, cane, walker, non-ambulatory IADLs Independent: shopping, housework, finances, food prep, telephone, transportation , medication admin. Exam & Diagnostic Data Last 24 Hrs of Vital Signs/I&O Vital Signs Date Time Temp Pulse Resp B/P Pulse O2 O2 Flow FiO2 Ox Delivery Rate 09/17 1133 98.0 73 16 140/68 94 Room Air 09/17 1021 97.7 79 20 136/63 09/17 1021 97.7 79 20 136/63 06 0711 156/88 09/17 0659 73 18 183/91 95 Room Air 09/17 0336 97.5 89 16 157/88 95 04/06 0041 97.0 93 16 163/69 95 09/16 2214 97.4 100 18 175/74 100 Room Air 09/16 2213 100 175/74 04 1835 98.6 09/16 1831 114 18 138/73 93 Room Air 04 1659 114 18 179/85 92 Room Air 09/16 1417 98.3 98 18 177/84 92 Room Air Intake & Output 09/17 1600 09/17 0800 04 0000 Intake Total Output Total 700 1000 Balance -700 -1000 Output, Urine 700 1000 Patient 161 lb Weight Physical Exam General Appearance: no apparent distress, lethargic Neck: normal inspection Extremities: no edema Skin: intact Labs/Tommy Results: Laboratory Tests 09/17 09/16 06 2204 Chemistry Sodium (137 - 145 mmol/L) 133 L Potassium (3.5 - 5.1 mmol/L) 3.5 Chloride (98 - 107 mmol/L) 104 Carbon Dioxide (22 - 30 mmol/L) 22 Anion Gap (5 - 16) 7 BUN (9 - 20 mg/dL) 12 Creatinine (0.7 - 1.2 mg/dL) 0.8 Estimated GFR (>60 ml/min) > 60 BUN/Creatinine Ratio (7 - 25 %) 15.0 Calcium (8.4 - 10.2 mg/dL) 8.2 L TSH (0.270 - 4.200 uIU/mL) 6.560 H Free T4 (0.85 - 1.93 ng/dL) 1.37 PTH Intact (13.8 - 85 pg/ml) 21.4 Hematology CBC w Diff NO MAN DIFF REQ WBC (4.8 - 10.8 /CUMM) 5.2 RBC (4.70 - 6.10 /CUMM) 4.49 L Hgb (14.0 - 18.0 G/DL) 14.6 Hct (42 - 52 %) 42.6 MCV (80.0 - 94.0 FL) 94.9 H MCH (27.0 - 31.0 PG) 32.5 H RDW (11.5 - 14.5 %) 14.2 Plt Count (130 - 400 /CUMM) 151 MPV (7.4 - 10.4 FL) 7.1 L Gran % (42.2 - 75.2 %) 67.7 Lymphocytes % (20.5 - 51.1 %) 13.1 L Monocytes % (1.7 - 9.3 %) 16.9 H Eosinophils % (0 - 5 %) 2.0 Basophils % (0.0 - 2.0 %) 0.3 Absolute Granulocytes (1.4 - 6.5 /CUMM) 3.5 Absolute Lymphocytes (1.2 - 3.4 /CUMM) 0.7 L Absolute Monocytes (0.10 - 0.60 /CUMM) 0.9 H Absolute Eosinophils (0.0 - 0.7 /CUMM) 0.1 Absolute Basophils (0.0 - 0.2 /CUMM) 0 PUBS MCHC (33.0 - 37.0 G/DL) 34.2 Urines Ur Random Creatinine (mg/dL) 31.8 Ur Random Sodium (30 - 90 mmol/L) 123 H Ur Random Potassium (mmol/L) 21.0 Fraction Sodium Excret (<1% %) 3.0 H 04 1442 Urines Urinalysis MANY H Urine Color (YEL,AMB,STR) YEL Urine Clarity (CLEAR) HAZY H Urine pH (5.0 - 8.0) 7.5 Ur Specific [place] (1.001 - 1.035) 1.015 Urine Protein (NEG,<30 MG/DL) TRACE H Urine Ketones (NEG) TRACE H Urine Nitrite (NEG) NEG Urine Bilirubin (NEG) NEG Urine Urobilinogen (0.1 - 1.0 EU/dl) 0.2 Ur Leukocyte Esterase (NEG) NEG Ur Microscopic SEDIMENT EXAMINED Urine RBC (0 - 5 /HPF) 1-3 Urine WBC (0 - 2 /HPF) 3-5 H Urine Bacteria (NEG/NONE) RARE H Urine Hemoglobin (NEG) NEG Urine Glucose (N MG/DL) NEG Assessment/Plan Assessment/Plan Patient is 86-year-old gentleman with past medical history significant for hypertension, anxiety and depression, hypothyroidism on levothyroxine 88 mcg daily at home, history of breast cancer and status post radiation and mastectomy and history of prostate cancer , was admitted for generalized weakness and lethargy for 2 days. His TSH is mildly elevated and his free T4 level is in the normal range. He was on Levothyroxine 88 mcg daily at home. In 06/2016, his TFT was in the normal range. The abnormal TFT on admission could be due to sick euthyroid changes. I will recommend continue Levothyroxine 88 mcg daily for now. I will suggest repeating TSH and free T4 in 2 days to look for a trend. Then his thyroid medication will be adjusted accordingly. His repeat calcium level is down to 8.2 after he received IVF. I will continue monitoring his calcium level. His sodium level has been improving. I will continue monitoring his electrolytes. will follow. Consult Acknowledgment - Thank you for your consult request.
[2016-09-17 14:36] VITALS: BP 132/80
[2016-09-17] MEDS ORDERED: LEVOTHYROXINE75 MCG PO (15:26)
--- NOTE | 2016-09-17 15:33 | Discharge Summary ---
See Addendum Visit Information Visit Dates Admission Date: 09/16/16 Discharge Date: 09/18/16 Hospital Course Course Attending Physician: BUDDY HARRELL,ELIS Pastrana Primary Care Physician: ALEX HARRELL,МАРИЯ Ruelas Consulting Request: Consulting Specialty: Endocrinology Consulting Physician: Dr. nieves Reason for Consult: hypercalcemia Hospital Course: Patient is 86-year-old gentleman with past medical history significant for hypertension, anxiety and depression, hypothyroidism, history of breast cancer and status post radiation and mastectomy 2 years ago, history of breast cancer recently seen in ER for generalized weakness 2 months ago came in today with chief complaint of generalized weakness and lethargy for 2 days. Admission vital signs were Temperature 99.3, pulse 99, respiratory rate 18, blood pressure 195/93, pulse ox 94 on room air Admission labs were WBC count 5.4, RBCs 5.5, hemoglobin 17.4, hematocrit 50.8, platelet 167, sodium 129, BUNs 17, creatinine 1.0, calcium 10.6, bilirubin 1.7, troponins less than 0.01, protein 8.8, vitamin D 48.2, TSH 9.2, PTH 12.5. Urine was negative for any signs of infection Chest x-ray was negative for any evidence of acute pneumonia She was admitted on general medical floor and we took care for the following problems Problem #1 hyponatremia most likely due to hypovolemic height 4 next anemia as with IV fluid replacement his sodium was progressively got better Problem #2 hypercalcemia on admission to 10.6 which came down to 8.2 with fluid replacement. Patient was also seen by junior buyer. Problem #3 rash on his back, chest in a dermatomal fashion most likely localized shingles As patient presented after 5 days of shingles he was not a candidate to start any empty viral medications. Patient was put on contacts standard because it was not disseminated but some of his lesions were worse because of fragile skin. Patient was counseled for conservative management and recommended to follow up with PCP on discharge. Patient remained pain-free during hospital stay. Problem #4 hypothyroidism On admission patient's TSH was high to 9.2 but normal T4 and total T3 most likely it is sick euthyroid changes. Patient was seen by junior buyer and recommendations were to continue home dose of levothyroxine Problem #5 generalized weakness most likely deconditioning/hyponatremia/ dehydration Patient worked with physical therapy Complications: None Allergies: Coded Allergies: lansoprazole (UPSET STOMACH 09/02/15) lovastatin (UPSET STOMACH 09/02/15) rosuvastatin (UPSET STOMACH 09/02/15) alendronate sodium (UPSET STOMACH 09/02/15) esomeprazole (UPSET STOMACH 09/02/15) ezetimibe (UPSET STOMACH 09/02/15) fenofibrate (UPSET STOMACH 09/02/15) Pertinent Lab Results: SERVICE DATE: 09/16/16 EXAM TYPE: RAD - XRY-PORTABLE CHEST XRAY EXAMINATION: XR PORTABLE CHEST CLINICAL INFORMATION: Weakness. Evaluate for pneumonia. COMPARISON: CXR from 07/11/2016. TECHNIQUE: Portable AP view of the chest was obtained. FINDINGS: No acute findings in the chest compared to the prior radiograph. The mid and upper lung zones are relatively lucent suggesting presence of chronic emphysema. There are chronic reticular opacities that predominate within the lower lung zones; findings are compatible with chronic interstitial fibrosis. No acute airspace opacification or pleural effusion. Cardiac silhouette is normal in size. There is atherosclerotic calcification of the aorta. The visualized bones are intact. IMPRESSION: 1. No evidence of acute pneumonia. 2. Chronic interstitial lung disease and probable chronic emphysema, as well. Overall, no acute findings in the chest compared to 07/11/2016. Disposition Summary Disposition Principal Diagnosis: Hyponatremia Additional Diagnosis: Generalized weakness Hypercalcemia Hypothyroidism Discharge Disposition: home health services Discharge Instructions General Discharge Information Code Status: Full Code Patient's Diet: Heart healthy diet Patient's Activity: As tolerated with assistance Follow-Up Instructions/Appts: Please follow-up with primary care physician in one week of discharge Please follow-up with endocrinology in 1 week of discharge Medications at Discharge Discharge Medications: Continue taking these medications: Aspirin (Ecotrin*) 325 MG TABLET.DR 1 Tablet ORAL DAILY Comments: Last Taken: 09/18/16 Time: 10am Calcium (Elemental-Fr Calcarb) (Calcium) 600 MG CALCIUM (1,500 MG) TABLET 1 Tablet ORAL THREE TIMES DAILY Comments: NOT GIVEN IN HOSPITAL Vitamin B Complex & Vit C No.3 (Balanced B Complex-Vit C) 15-10-300 TABLET.ER 1 Tablet ORAL DAILY Comments: NOT GIVEN WHILE IN HOSPITAL Vit C/E/Zn/Coppr/Lutein/Zeaxan (Preservision Areds 2 Softgel) 250-200-40 CAPSULE 1 Capsule ORAL TWICE DAILY Comments: NOT GIVEN IN HOSPITAL [place]-3 Fatty Acids (Fish Oil Concentrate) 1,000 MG CAPSULE 2 Capsule ORAL DAILY Comments: NOT GIVEN WHILE IN HOSPITAL Cholecalciferol (Vitamin D3) 1,000 UNIT TABLET 3 Tablet ORAL DAILY Comments: NOT GIVEN WHILE IN HOSPITAL Ginkgo Biloba [place] Extract (Ginkgo Biloba) 30 MG CAPSULE 1 Capsule ORAL DAILY Comments: NOT GIVEN WHILE IN HOSPITAL Nifedipine (Nifedipine ER) 30 MG TAB.ER.24 1 Tablet ORAL DAILY Comments: Last Taken: 09/18/16 Time: 10am Ranitidine HCl (Zantac) 150 MG TABLET 1 Tablet ORAL DAILY Comments: NOT GIVEN WHILE IN HOSPITAL Psyllium Hydrophylic Muciloid (Metamucil Packet) 3.4 GRAM POWD.PACK 1 Packet ORAL DAILY Comments: NOT GIVEN WHILE IN HOSPITAL Anastrozole (Anastrozole) 1 MG TABLET 1 Tablet ORAL DAILY Comments: Last Taken: 09/18/16 Time: 10am Niacin (Niaspan) 500 MG TAB.ER.24H 2 Capsule ORAL DAILY Comments: NOT GIVEN WHILE IN HOSPITAL Metoprolol Tartrate (Metoprolol Tartrate) 25 MG TABLET 1 Tablet ORAL TWICE DAILY Comments: Last Taken: 09/18/16 Time: 10am Furosemide (Furosemide) 20 MG TABLET 1 Tablet ORAL EVERY 48 HOURS (Every 2 days) Qty = 45 Comments: NOT GIVEN WHILE IN HOSPITAL Levothyroxine Sodium (Levothyroxine Sodium) 88 MCG TABLET 1 Tablet ORAL DAILY Days = 30 Comments: Last Taken: 09/18/16 Time: 7am Copies To: ALEX HARRELL,МАРИЯ Ruelas
[2016-09-17 22:12] VITALS: BP 124/60
--- NOTE | 2016-09-18 07:54 | PN- Housestaff ---
DAO HARRELL,[facility] 09/18/16 0754: Subjective Follow-up For: Hyponatremia Generalized weakness Subjective: Patient is seen and examined at bedside. He states that he feels much better compared to previous days and was able to tolerate physical therapy remarkably well today. He does not endorse any new acute complaints including fevers, chills, nausea, vomiting, chest pain, palpitation, shortness of breath, increased generalized weakness or musculoskeletal pain, abdominal pain or dysuria. No acute overnight event reported by nursing staff. Review of Systems Constitutional: Reports: no symptoms. Objective Last 24 Hrs of Vital Signs/I&O Vital Signs Date Time Temp Pulse Resp B/P Pulse O2 O2 Flow FiO2 Ox Delivery Rate 09/18 957 122/78 09/18 0958 12278 09/18 0817 97.5 82 18 122/78 96 Room Air 09/17 2212 98.6 81 20 124/60 93 Room Air 09/17 2053 85 132/80 09/17 1600 Room Air 09/17 1436 97.6 85 18 132/80 94 Room Air Intake & Output 09/18 1600 09/18 0800 09/18 0000 Intake Total 960 960 Output Total 550 800 Balance 410 160 Intake, IV 600 600 Intake, Oral 360 360 Output, Urine 550 800 Physical Exam General Appearance: Alert, Oriented X3, Cooperative Skin: affected area of shingles rasharound the back and anteriorchest wall extending down to dermatomal T10 appears to be healing with no noted weeping or discharge Cardiovascular: Regular Rate, Normal S1, Normal S2 Lungs: Clear to Auscultation, Normal Air Movement Abdomen: Normal Bowel Sounds, Soft, No Tenderness, No Hepatospenomegaly Extremities: No Clubbing, No Cyanosis, No Edema, Normal Pulses Assessment/Plan Assessment: This is an 86-year-old gentleman with past medical history significant for hypothyroidism, hypertension, prostate cancer, breast cancer status post mastectomy and radiation came with chief complaint of worsening weakness and skin rash on upper right back and right upper chest in a dermatomal fashion significant for shingles. Patient was recently seen by PCP couple days ago and was determined that he did not require any antiviral medication for shingles. During presentation the ED patient's vitals were unremarkable. Physical examination suggested components of depression as patient had oral dry mucosa. Laboratory work was remarkable for hyponatremia, and hypocalcemia. Patient was admitted for evaluation and treatment of hyponatremia and generalized weakness. Assessment and plan #Hyponatremia Most likely secondary to hypovolemia hyponatremia. ReSolving appropriately. Occurs patient to stay hydrated while at home. Patient is stable for discharge with instructions to obtain a BP lab work (prescription given) 4 days from now and follow-up with primary care physician regarding management. #Generalized weakness If can improvement compared to previous days with patient tolerating physical therapy very well and no longer requiring STR placement. Patient is to be sent home with home PT. #Shingles infection Reported onset of a 5-6 days ago. In the absence of no new vesicular lesions, there is no indication to treat shingles that is more than 72 hours old. Rash area shows a healing progression with some crusty lesions and no discharge or infectious appearance noted. Lockstitcher patient on risk of superinfection to closely follow-up with primary care physician. # Hypercalcemia Mild hypercalcemia which resolved with hydration. Possible etiologies include malignancy-induced hypercalcemia supported by the negative feedback of the PTH. #History of hypothyroidism Currently on 88 g of levothyroxine with TSH elevated but not remarkably elevated and freed T4 and T3 normal. #Disposition Patient stable for discharge today with home PT. Problem List: 1. Hyponatremia syndrome 2. Weakness Pain Ratin Pain Location: none Pain Goal: Pain 4 or less Pain Plan: Per pain pathway Tomorrow's Labs & Rationales: none Consulting Request: Consulting Specialty: Endocrinology Consulting Physician: Dr. nieves Reason for Consult: hypercalcemia RIORICO 09/18/16 1132: Attending MD Review Statement Attending Statement Attending MD Statement: examined this patient, discuss w/resident/PA/DIRECTOR MEETINGS, agreed w/resident/PA/DIRECTOR MEETINGS, discussed with family, reviewed EMR data (avail), discussed with nursing, discussed with case mgmt, reviewed images Attending Assessment/Plan: "86-year-old male with past medical history of breast cancer and prostate cancer brought in by for generalized weakness and inability to ambulate. Patient in emergency room was found to have a sodium of 129 and calcium of 10.7 and hemoglobin of 17. According to the patient's patient started having shingles about 5 days ago and was seen by the PCP who decided not to treat the shingles. On examination patient has lesions of the shingles on both the front of the chest as well as at the back and has crusting on the lesions. Looks like there are no new lesions in the last 1 or 2 days. We will admit the patient for hyponatremia, hypercalcemia and severe dehydration with generalized weakness. We will start him on IV fluids and hold his Lasix as well as hold his calcium and vitamin D supplementation. We will get a vitamin D level as well as PTH level. We'll also get physical therapy consult." 1. Hyponatremia improving likely 2/2 IVVD , continue to monitor na levels. 2. Hypercalcemia improved after hydration. asymptomatic 3. f/u endocrinology 4. Shingles not on antivirals, c/w suppotive care, pain meds as needed. 5. Hypothyroidsim resume home meds 6. General physical deconditioning PT eval and dc planning possible STR vs home PT 7. gi/dvt prophyalxis.
[2016-09-18 08:17] VITALS: BP 122/78
--- NOTE | 2016-09-18 08:17 | Patient Discharge Instructions ---
Discharge Instructions General Discharge Information You were seen/treated for: Low Sodium in your blood Special Instructions: Please contact your primary care physician if your rashes worsen or you develop new rashes or fevers Please follow up with your primary care within 1 week Please have your labwork for soidum done and discuss the results with your primary care (we will give you a prescription for lab work) Please make sure you drink adequate amount of water Acute Coronary Syndrome Inclusion Criteria At DC or during hospital stay patient has or had the following: ACS DIAGNOSIS No Discharge Core Measures Meds if any: Prescribed or Continued at Discharge Meds if any: NOT Prescribed or Continued at Discharge Congestive Heart Failure Inclusion Criteria At DC or during hospital stay patient has or had the following: CHF DIAGNOSIS No Discharge Core Measures Meds if any: Prescribed or Continued at Discharge Meds if any: NOT Prescribed or Continued at Discharge Cerebrovascular accident Inclusion Criteria At DC or during hospital stay patient has or had the following: CVA/TIA Diagnosis No Discharge Core Measures Meds if any: Prescribed or Continued at Discharge Meds if any: NOT Prescribed or Continued at Discharge Venous thromboembolism Inclusion Criteria VTE Diagnosis No VTE Type NONE VTE Confirmed by (Test) NONE Discharge Core Measures - Per Current guidelines, there needs to be overlap - treatment for the first 5 days of Warfarin therapy. - If discharged on Warfarin prior to 5 days of - overlap therapy, the patient will need to be - assessed for post discharge needs including - *Post discharge parental anticoagulation - *Warfarin and/or parental anticoagulation education - *Follow up date to check INR post discharge At least 5 days overlap therapy as Inpatient No Meds if any: Prescribed or Continued at Discharge Note: Overlap Therapy is Warfarin and Anticoagulant Meds if any: NOT Prescribed or Continued at Discharge
--- NOTE | 2016-09-18 08:34 | PN- Endocrinology ---
Assessment/Plan Assessment: Patient is 86-year-old gentleman with past medical history significant for hypertension, anxiety and depression, hypothyroidism, history of breast cancer and status post radiation and mastectomy and history of prostate cancer , was admitted for generalized weakness and lethargy for 2 days. His TSH was mildly elevated on admission and his free T4 level is was the normal range. He was on Levothyroxine 88 mcg daily at home. In 06/2016, his TFT was in the normal range. The abnormal TFT on admission could be due to sick euthyroid changes. His repeat calcium level was down to 8.2. He is still on NS at 75 ml/ hour. If he is medically stable for discharge, he will continue Levothyroxine 88 mcg daily. I will suggest repeating TSH and free T4, electrolytes and calcium level next week as outpatient. F/U in office after discharge. Plan: as above. Subjective Subjective: He feels well. He walked around with a walker. Objective Last 24 Hrs of Vital Signs/I&O Vital Signs Date Time Temp Pulse Resp B/P Pulse O2 O2 Flow FiO2 Ox Delivery Rate 09/18 0817 97.5 82 18 122/78 96 Room Air 09/17 2212 98.6 81 20 124/60 93 Room Air 09/17 2053 85 132/80 / 1600 Room Air 09/17 1436 97.6 85 18 132/80 94 Room Air 09/17 1133 98.0 73 16 140/68 94 Room Air 09/17 1021 97.7 79 20 136/63 04/06 1021 97.7 79 20 136/63 Intake & Output 09/18 1600 09/18 0800 09/18 0000 Intake Total 960 960 Output Total 550 800 Balance 410 160 Intake, IV 600 600 Intake, Oral 360 360 Output, Urine 550 800 Results Pertinent Lab/Tommy Results: Laboratory Tests 09/18 0755 Chemistry Sodium Pending Potassium Pending Chloride Pending Carbon Dioxide Pending Anion Gap Pending BUN Pending Creatinine Pending BUN/Creatinine Ratio Pending
[2016-09-18 09:58] VITALS: BP 122/78
== END 2016-09-18 14:01 | disposition home health service (06) | DRG 641 ==
LOC: CANRESERV → ENRESERVTM → ENRESERVDT → ERH 12:33 → 2NA 16:59 → ENPENDDIS 16:59 → ERHI 16:59 → EDBEDREQ 17:43 → 2NA 09-17 10:59
PROVIDERS: Emergency Medicine; Internal Medicine; ADMIT Internal Medicine
DX: E87.1 Hypo-osmolality and hyponatremia (principal); E86.0 Dehydration; B02.9 Zoster without complications; E83.52 Hypercalcemia; E07.81 Sick-euthyroid syndrome; I10 Essential (primary) hypertension; F41.9 Anxiety disorder, unspecified; F32.9 Major depressive disorder, single episode, unspecified; E03.9 Hypothyroidism, unspecified; Z85.3 Personal history of malignant neoplasm of breast; I25.2 Old myocardial infarction; K21.9 Gastro-esophageal reflux disease without esophagitis; Z85.46 Personal history of malignant neoplasm of prostate
CPT/HCPCS: 2NAP; 84133; 84300; ERO; 36415; 81001; 82436; 82570; 87040; 87804; 87804-59; 93005; 93010; 96360; 97110-GO; 97116-GO; 97162-GP; 97530-GO; J1650

== ENCOUNTER 2016-11-21 11:54 | Inpatient (IN) | payer OTHER, MEDICARE ==
[~2016-11-21] VITALS: Ht 170.2 cm; Wt 73.0 kg
[~2016-11-21 11:54] MED LIST changes: +FUROSEMIDE20 M1 PO; +LEVOTHYROXINE75 MCG PO; +METOPROLOL TART25 M1 PO
--- NOTE | 2016-11-21 11:54 | NUR ---
TRIAGE: 86 Y/O MALE BIBA FROM HOME. FELL THIS MORNING, STRUCK EITHER BACK OR NECK WHILE FALLING. DENIES LOC. PATIENT UNABLE TO LOCALIZE PAIN AT PRESENT: REPORTS GENERALIZED PAIN TO NECK\, BACK, AND RIB REGIONS. TAKES ECOTRIN EVERY MORNING.
--- NOTE | 2016-11-21 11:56 | NUR ---
EDINSON THOMAS IN ROOM FOR EVAL ON ARRIVAL
--- NOTE | 2016-11-21 12:04 | NUR ---
RECENTLY DIAGNOSED WITH SHINGLES.
--- NOTE | 2016-11-21 12:25 | NUR ---
PATIENT TO CT SCAN AT THIS TIME VIA STRETCHER.
[2016-11-21 12:39] LABS: ABSOLUTE BASOPHIL COUNT 0 /CUMM (0.0-0.2); ABSOLUTE EOSINOPHIL COUNT 0.1 /CUMM (0.0-0.7); ABSOLUTE GRANULOCYTE CT 5.6 /CUMM (1.4-6.5); ABSOLUTE LYMPH COUNT 0.5 /CUMM (1.2-3.4); ABSOLUTE MONOCYTE COUNT 0.6 /CUMM (0.10-0.60); BASOPHIL % 0.1 % (0.0-2.0); EOSINOPHIL % 2.1 % (0-5); GRANULOCYTE % 81.1 % (42.2-75.2); HEMATOCRIT 46.7 % (42-52); MEAN CORPUSCULAR HGB 32.2 PG (27.0-31.0); MEAN CORPUSCULAR HGB CONC 33.3 G/DL (33.0-37.0); MEAN CORPUSCULAR VOLUME 96.6 FL (80.0-94.0); MEAN PLATELET VOLUME 7.1 FL (7.4-10.4); PLATELET COUNT 171 /CUMM (130-400); RBC DISTRIBUTION WIDTH 13.9 % (11.5-14.5); RED BLOOD CELL CT 4.83 /CUMM (4.70-6.10); WHITE BLOOD CELL COUNT 6.9 /CUMM (4.8-10.8)
--- NOTE | 2016-11-21 12:40 | NUR ---
PATIENT RETURNED FROM CT SCAN.
--- NOTE | 2016-11-21 13:07 | NUR ---
CONTINUE TO AWAIT CT SCAN RESULTS. PATIENT OFFERS NO COMPLAINTS AT THIS TIME.
--- NOTE | 2016-11-21 13:19 | NUR ---
INFORMED WAITING COMPLETED.
--- NOTE | 2016-11-21 13:36 | ED MVC/FALL/TRAUMA COMPLAINT ---
History of Present Illness General Chief Complaint: Fall Stated Complaint: FELL THIS MORNING, BACK PAIN' Source: patient Exam Limitations: poor historian Vital Signs & Intake/Output Vital Signs & Intake/Output Vital Signs Date Time Temp Pulse Resp B/P B/P Pulse O2 O2 Flow FiO2 Mean Ox Delivery Rate 11/21 1702 82 18 180/90 97 Room Air 11/21 1505 98.3 84 18 172/89 94 Room Air 11/21 1203 74 16 170/84 92 Room Air Room Air Allergies Coded Allergies: lansoprazole (UPSET STOMACH 09/02/15) lovastatin (UPSET STOMACH 09/02/15) rosuvastatin (UPSET STOMACH 09/02/15) alendronate sodium (UPSET STOMACH 09/02/15) esomeprazole (UPSET STOMACH 09/02/15) ezetimibe (UPSET STOMACH 09/02/15) fenofibrate (UPSET STOMACH 09/02/15) Triage Note: TRIAGE: 86 Y/O MALE NUNUA FROM HOME. FELL THIS MORNING, STRUCK EITHER BACK OR NECK WHILE FALLING. DENIES LOC. PATIENT UNABLE TO LOCALIZE PAIN AT PRESENT: REPORTS GENERALIZED PAIN TO NECK\, BACK, AND RIB REGIONS. TAKES ECOTRIN EVERY MORNING. Triage Nurses Notes Reviewed? yes Onset: Abrupt Duration: hour(s):, constant Timing: single episode today Severity: mild, moderate Injuries/Fall Location: head, back No Modifying Factors: none HPI: 86-year-old male comes into emergency room with complaints of back pain. Patient was walking with his walker with his when he fell to his side. Patient hit his head against. No loss of consciousness. Patient reports of right lower back pain. Denies any chest pain. Denies any preceding chest pain shortness of breath lightheaded dizziness. Patient has some baseline confusion but the reports that he is at his normal baseline of function. (LESLY LYLE) Reconcile Medications Anastrozole 1 MG TABLET 1 TAB PO DAILY CANCER (Reported) Aspirin (Ecotrin*) 81 MG TABLET. 1 TAB PO DAILY heart health (Reported) Calcium (Elemental-Fr Calcarb) (Calcium) 600 MG CALCIUM (1,500 MG) TABLET 1 TAB PO TID SUPPLEMENT (Reported) Cholecalciferol (Vitamin D3) 1,000 UNIT TABLET 3 TAB PO DAILY SUPPLEMENT ( Reported) Ginkgo Biloba [place] Extract (Ginkgo Biloba) 30 MG CAPSULE 1 CAP PO DAILY SUPPLEMENT (Reported) Levothyroxine Sodium 75 MCG TABLET 1 TAB PO DAILY AC THYROID (Reported) Metoprolol Tartrate 25 MG TABLET 1 TAB PO BID HTN (Reported) Niacin (Niaspan) 500 MG TAB.ER.24H 2 CAP PO DAILY SUPPLEMENT (Reported) [place]-3 Fatty Acids (Fish Oil Concentrate) 1,000 MG CAPSULE 2 CAP PO DAILY SUPPLEMENT (Reported) Psyllium Hydrophylic Muciloid (Metamucil Packet) 3.4 GRAM POWD.PACK 1 PAC PO DAILY GI (Reported) Ranitidine HCl (Zantac) 150 MG TABLET 1 TAB PO DAILY ACID REFLUX (Reported) Vit C/E/Zn/Coppr/Lutein/Zeaxan (Preservision Areds 2 Softgel) 250-200-40 CAPSULE 1 CAP PO BID EYE (Reported) Vitamin B Complex (Balanced B-100) 1 EACH TABLET 1 TAB PO DAILY VITAMIN SUPPORT (Reported) (SHOBHA HARRELL,LAILA Ruelas) Past History Travel History Traveled to [place] past 21 day No Medical History Any Pertinent Medical History? see below for history Neurological: NONE EENT: NONE Cardiovascular: hypertension, hyperlipidemia, myocardial infarction, NSTEMI Respiratory: NONE Gastrointestinal: GERD Hepatic: NONE Renal: NONE Musculoskeletal: NONE Psychiatric: NONE Endocrine: NONE Blood Disorders: NONE Cancer(s): breast cancer, prostate cancer SHOP SERVICE TECHNICIAN/Reproductive: NONE History of MRSA: No History of VRE: No History of CDIFF: No Tetanus Vaccine: 11/01/11 Surgical History Surgical History: hernia repair-umbilical, masectomy Psychosocial History Who do you live with Family Services at Home None What is your primary language Persian Tobacco Use: Refused to answer ETOH Use: denies use Illicit Drug Use: denies illicit drug use Family History Family History, If Any: Relation not specified for: *No pertinent family history Hx Contributory? No (LESLY LYLE) Review of Systems Review of Systems Constitutional: Reports: no symptoms. Eyes: Reports: no symptoms. Ears, Nose, Throat, Mouth: Reports: no symptoms. Respiratory: Reports: no symptoms. Cardiovascular: Reports: no symptoms. Gastrointestinal/Abdominal: Reports: no symptoms. Genitourinary: Reports: no symptoms. Musculoskeletal: Reports: see HPI. Skin: Reports: no symptoms. Neurological/Psychological: Reports: no symptoms. All Other Systems: Reviewed and Negative (LESLY LYLE) Physical Exam Physical Exam General Appearance: well developed/nourished, alert, awake Head: atraumatic, normal appearance Eyes: Bilateral: normal appearance. Ears, Nose, Throat, Mouth: hearing grossly normal, moist mucous membrane Neck: normal inspection, full range of motion Respiratory: normal breath sounds, no respiratory distress Cardiovascular: regular rate/rhythm Gastrointestinal: soft, non-tender Back: normal inspection, normal range of motion Extremities: normal range of motion Neurologic/Psych: awake, alert, oriented x 3, normal gait, normal mood/affect Skin: intact, normal color Core Measures ACS in differential dx? No Severe Sepsis Present: No Septic Shock Present: No (LESLY LYLE) Progress Differential Diagnosis: abd injury, C/T/L spine injury, ext injury, ICH, pelvis injury, pnemothorax, spinal cord injury Plan of Care: Orders Procedure Date/time Status Heart Healthy Diet 11/22 B Active CBC WITHOUT DIFFERENTIAL 11/22 06 Active BASIC ELECTROLYTES PLUS BUN&CR 11/22 0600 Active Regular Diet 11/21 D Complete PT Evaluate & Treat 11/21 1652 Active Saline Lock 11/21 1652 Active Pathway - chart 11/21 1652 Active House Staff 11/21 1652 Active Code Status 11/21 1652 Active Patient Data 11/21 1537 Active Saline Lock 11/21 1526 Active Misc Message 11/21 1526 Active ED Holding Orders 11/21 1526 Active Vital Signs 11/21 1526 Active Activity/Ambulation 11/21 1526 Active Code Status 11/21 1526 Complete Admit to inpatient 11/21 1521 Active Add-on Test (ER Only) 11/21 1353 Active COMPREHENSIVE METABOLIC PANEL 11/21 1223 Complete TROPONIN LEVEL 11/21 1206 Complete CBC WITHOUT DIFFERENTIAL 11/21 1206 Complete EKG 11/21 1205 Active Intake & Output 11/21 1155 Active VTE Mechanical Prophylaxis 11/21 UNK Active Vital Signs 11/21 UNK Active Intake & Output 11/21 UNK Active Current Medications Sig/Alejo Start time Last Medication Dose Stop Time Status Admin Anastrozole 1 MG DAILY 11/22 1000 AC (Arimidex) Aspirin Buffered 81 MG DAILY 11/22 1000 AC (Ecotrin) Cholecalciferol 1,000 IU DAILY 11/22 1000 AC (Vitamin D) Famotidine 20 MG DAILY 11/22 1000 AC (Pepcid) Niacin 500 MG DAILY 11/22 1000 AC (Niacin 500 MG TR) Psyllium Hydrophilic 1 PAC DAILY 11/22 1000 AC Mucilloid (Metamucil Sugar Free) Levothyroxine Sodium 0.075 MG DAILY AC 11/22 0700 AC (Synthroid) Metoprolol Tartrate 25 MG BID 11/21 2200 AC (Lopressor) Ketorolac 15 MG Q8P PRN 11/21 1700 AC Tromethamine (Toradol) Morphine Sulfate 2 MG Q12P PRN 11/21 1700 AC (Morphine) Acetaminophen 650 MG Q6P PRN 11/21 1645 AC (Tylenol) Lidocaine 1 PAT Q24H 11/21 1645 AC (Lidoderm) Heparin Sodium 5,000 UNIT Q8 11/21 1641 AC (Porcine) Laboratory Tests 11/21/16 1223: Anion Gap 12, Estimated GFR > 60, BUN/Creatinine Ratio 14.4, Glucose 115 H, Calcium 10.0, Total Bilirubin 0.7, AST 40, ALT 41, Alkaline Phosphatase 71, Troponin I < 0.01, Total Protein 7.6, Albumin 4.2, Globulin 3.4, Albumin/ Globulin Ratio 1.2, CBC w Diff NO MAN DIFF REQ, RBC 4.83, MCV 96.6 H, MCH 32.2 H, RDW 13.9, MPV 7.1 L, Gran % 81.1 H, Lymphocytes % 7.4 L, Monocytes % 9.3, Eosinophils % 2.1, Basophils % 0.1, Absolute Granulocytes 5.6, Absolute Lymphocytes 0.5 L, Absolute Monocytes 0.6, Absolute Eosinophils 0.1, Absolute Basophils 0, PUBS MCHC 33.3 Diagnostic Imaging: Viewed by Me: CT Scan. Discussed w/RAD: CT Scan. Radiology Impression: EXAM TYPE: CAT - CT ABD & PELVIS W/O IV CONTRAS; CT CHEST WO IV CONTRAST EXAMINATION: CT CHEST WITHOUT IV CONTRAST CT ABDOMEN AND PELVIS WITHOUT IV CONTRAST CLINICAL INFORMATION: 86-year-old male with back pain and confusion after trauma/fall. COMPARISON: No recent imaging exams of abdomen pelvis within the electronic picture archive. TECHNIQUE: Noncontrast multidetector CT imaging examination of the chest, abdomen and pelvis was performed. Axial images are displayed at 5 mm and 0.625 mm slice thickness. Coronal and sagittal reformatted images were generated at the technologist's workstation and submitted for review. DLP: 505 mGy-cm FINDINGS: CHEST - LUNGS and PLEURA: Mucus/secretions along the tracheal wall. Jydpzuiq-ym-icnhdr centrilobular and paraseptal emphysema. Chronic pleural-based scarring with pleural calcifications at the lung apices. Also, there are bilateral peripheral reticular opacities of chronic fibrosis with scattered regions of subpleural honeycombing and traction bronchiectasis, most conspicuous within the right middle lobe and inferior lingula. No evidence of superimposed acute interstitial edema, focal consolidation, pneumothorax or pleural effusion. MEDIASTINUM: There is three-vessel coronary artery atherosclerotic calcification. Thoracic aorta is calcified and without aneurysm. No pericardial effusion. The esophagus is unremarkable. Thyroid gland is atrophied. LYMPHATICS: No pathologic sized axillary, hilar or mediastinal lymph nodes. CHEST WALL/BONES: No acute findings in the degenerated spine. Mild concavity of T5 superior endplate without acute fracture. 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 No evidence of an acute, displaced rib fracture or sternal fracture. ABDOMEN AND PELVIS - HEPATOBILIARY: Liver has normal size and contour. Small, 0.4 cm hypodense focus in the anterior hepatic segment near the hepatic dome is likely a cyst. No suspicious hepatic lesion or intrahepatic bile duct dilatation. Gallbladder has small calcified stones. PANCREAS: Pancreas is atrophied. No pancreatic ductal dilatation or peripancreatic edema. SPLEEN: Unremarkable. ADRENAL GLANDS: Unremarkable. KIDNEYS, URETERS, BLADDER: No evidence of nephrolithiasis or hydroureteronephrosis. Urinary bladder is moderately distended and has normal wall thickness. No bladder calculi. GASTROINTESTINAL TRACT: Loops of bowel are normal in caliber. No evidence of acute inflammation or obstruction along the gastrointestinal tract. No ascites or pneumoperitoneum. ABDOMINAL WALL: There is intact mesh of the lower abdominal wall and overlying the inguinal canals. VASCULAR: There is extensive atherosclerotic calcification of the aorta and iliofemoral vessels. At the level of the renal arteries, the atherosclerotic aorta is 2.3 cm AP, 2.3 cm transverse diameter. The infrarenal abdominal aorta is ectatic and measures up to maximum of 2.5 cm transverse and 2.6 cm AP diameter. No retroperitoneal hematoma. LYMPH NODES: No pathologic sized lymph nodes within the abdomen or pelvis. PELVIC VISCERA: Prominent prostate gland is 4.9 cm transverse and 3.6 cm AP. No pelvic free fluid. OSSEOUS STRUCTURES: Lumbar vertebra have normal height and alignment. No acute fractures within the anterior or posterior elements. Within the lumbar spine, facet osteoarthritis is most severe on the right at L5-S1. Pelvic bones and proximal femurs are intact. IMPRESSION: 1. No acute traumatic pathology in the chest, abdomen or pelvis. 2. Jyehwaip-xp-kgqjxs pulmonary emphysema and findings consistent with chronic interstitial lung disease, as well. 3. Atherosclerotic disease of coronary arteries and thoracic aorta without aortic aneurysm. 4. Atherosclerotic infrarenal abdominal aorta measures up to 2.6 cm AP diameter. No abdominal aortic aneurysm or retroperitoneal hematoma. 5. Cholelithiasis without cholecystitis. DICTATED BY: MUNDO ABRAHAM MD DATE/TIME DICTATED:11/21/161333 UNEMPLOYMENT SPECIALIST:CLYDE DATE/TIME TRANSCRIBED:1333 CONFIDENTIAL, DO NOT COPY WITHOUT APPROPRIATE AUTHORIZATION., EXAM TYPE: CAT - CT CERV SPINE WO IV CONTRAST; CT HEAD WO IV CONTRAST EXAMINATION: CT HEAD W/O IV CONTRAST CT CERVICAL SPINE W/O IV CONTRAST CLINICAL INFORMATION: 86- year-old male status post trauma. Patient fell and struck head. COMPARISON: Head CT from 07/11/2016. Cervical spine CT from 11/01/2011. TECHNIQUE: Head - Contiguous axial imaging of the head was performed from the skull base to the vertex without the administration of intravenous contrast, and axial images are reconstructed at 0.625 mm, 2.5 mm and 5 mm slice thickness. Cervical spine - A volumetric, helical CT acquisition of the cervical spine was obtained without contrast; in addition to the standard set of axial images, multiplanar reformatted images were provided in the coronal and sagittal imaging planes. DLP : 964 mGy-cm (total) FINDINGS: HEAD: No acute intracranial hemorrhage. Again noted is atherosclerotic calcification of the vertebral, basilar and carotid arteries and chronic small vessel ischemic changes of supratentorial white matter. The chatman-white matter differentiation is well preserved. Stable appearance of the extra-axial collection of cerebral spinal fluid attenuation of the right frontoparietal convexity that exhibits chronic, mild mass effect upon the underlying cerebral hemisphere. Chronic atrophy of cerebral and cerebellar hemispheres with symmetric appearance of the ventricles and basilar cisterns. The calvarium is intact and the mastoid air cells and middle ear cavities are clear. There are secretions within the left maxillary sinus which has a small air-fluid level. The lenses have been extracted from the globes. CERVICAL SPINE: There is normal curvature of the cervical spine. The craniocervical junction is intact. The occipital condyles, atlas, axis and atlantoaxial articulation are intact. The vertebral body heights and alignment are maintained. No acute fractures in the anterior or posterior elements. There is no prevertebral soft tissue swelling. There is chronic multilevel degenerative disc disease, facet osteoarthritis and uncovertebral joint hypertrophy. Facet arthropathy and uncovertebral joint hypertrophy produce oymfbots-[id number] right-sided and moderate left-sided foraminal stenosis at C3-C4. Also, there is moderate-to- severe right-sided foraminal stenosis at C4-C5. Mild bilateral foraminal stenosis is observed at C5-C6, C6-C7 and on the left at C7-T1. Chronic pleural- based scarring at lung apices. Thyroid gland is atrophied. There are no fluid collections within the visualized neck. IMPRESSION: 1. No acute intracranial pathology compared to 07/11/2016. 2. No acute fracture or traumatic subluxation in the chronically degenerated cervical spine. 3. Left maxillary sinus secretions with small air-fluid level of the sinus. Correlate for any clinical signs/symptoms of an active left maxillary sinusitis. DICTATED BY: MUNDO ABRAHAM MD (LESLY LYLE) Comments: Attempted to sit the patient up to use the urinal. Patient was unable to even get up past 30 secondary to pain. The patient has a history of falling and he is at very high risk to be discharged at this time. Patient is going to require admission to the hospital for IV pain control and PT evaluation. Anticipate short-term rehabilitation. (SHOBHA HARRELL,LAILA Ruelas) Departure Departure Condition: Stable Clinical Impression Primary Impression: Multifactorial gait disorder Secondary Impressions: Intractable back pain Referrals: ALEX HARRELL,МАРИЯ Ruelas (PCP/Family) Departure Forms: Customer Survey General Discharge Information (LESLY LYLE) Departure Disposition: STILL A PATIENT Admission Note Spoke With: JADE ALEXANDRE MD Documentation of Exam: Documentation of any treatments & extenuating circumstances including Concerns Regarding Discharge (functional status, medication knowledge or non-compliance, living conditions, etc.) that warrant an admission rather than observation: [ Parenteral pain control, PT evaluation and treatment, anticipate short-term rehabilitation] PA/FIVE ROLL REFINER BATCH MIXER Co-Sign Statement Statement: ED Attending supervision documentation- [X] I saw and evaluated the patient. I have also reviewed all the pertinent lab results and diagnostic results. I agree with the findings and the plan of care as documented in the PA's/FIVE ROLL REFINER BATCH MIXER's documentation. [X] I have reviewed the ED Record and agree with the PA's/FIVE ROLL REFINER BATCH MIXER's documentation. [] Additions or exceptions (if any) to the PAs/FIVE ROLL REFINER BATCH MIXER's note and plan are summarized below: [] (SHOBHA HARRELL,LAILA Ruelas)
--- NOTE | 2016-11-21 13:36 | NUR ---
AWAITING CT SCAN AT THIS TIME.
--- NOTE | 2016-11-21 13:51 | CT SCAN REPORT ---
EXAMINATION: CT CHEST WITHOUT IV CONTRAST CT ABDOMEN AND PELVIS WITHOUT IV CONTRAST CLINICAL INFORMATION: 86-year-old male with back pain and confusion after trauma/fall. COMPARISON: No recent imaging exams of abdomen pelvis within the electronic picture archive. TECHNIQUE: Noncontrast multidetector CT imaging examination of the chest, abdomen and pelvis was performed. Axial images are displayed at 5 mm and 0.625 mm slice thickness. Coronal and sagittal reformatted images were generated at the technologist's workstation and submitted for review. DLP: 505 mGy-cm FINDINGS: CHEST - LUNGS and PLEURA: Mucus/secretions along the tracheal wall. Jmaqzrkl-ly-boysus centrilobular and paraseptal emphysema. Chronic pleural-based scarring with pleural calcifications at the lung apices. Also, there are bilateral peripheral reticular opacities of chronic fibrosis with scattered regions of subpleural honeycombing and traction bronchiectasis, most conspicuous within the right middle lobe and inferior lingula. No evidence of superimposed acute interstitial edema, focal consolidation, pneumothorax or pleural effusion. MEDIASTINUM: There is three-vessel coronary artery atherosclerotic calcification. Thoracic aorta is calcified and without aneurysm. No pericardial effusion. The esophagus is unremarkable. Thyroid gland is atrophied. LYMPHATICS: No pathologic sized axillary, hilar or mediastinal lymph nodes. CHEST WALL/BONES: No acute findings in the degenerated spine. Mild concavity of T5 superior endplate without acute fracture. 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 No evidence of an acute, displaced rib fracture or sternal fracture. ABDOMEN AND PELVIS - HEPATOBILIARY: Liver has normal size and contour. Small, 0.4 cm hypodense focus in the anterior hepatic segment near the hepatic dome is likely a cyst. No suspicious hepatic lesion or intrahepatic bile duct dilatation. Gallbladder has small calcified stones. PANCREAS: Pancreas is atrophied. No pancreatic ductal dilatation or peripancreatic edema. SPLEEN: Unremarkable. ADRENAL GLANDS: Unremarkable. KIDNEYS, URETERS, BLADDER: No evidence of nephrolithiasis or hydroureteronephrosis. Urinary bladder is moderately distended and has normal wall thickness. No bladder calculi. GASTROINTESTINAL TRACT: Loops of bowel are normal in caliber. No evidence of acute inflammation or obstruction along the gastrointestinal tract. No ascites or pneumoperitoneum. ABDOMINAL WALL: There is intact mesh of the lower abdominal wall and overlying the inguinal canals. VASCULAR: There is extensive atherosclerotic calcification of the aorta and iliofemoral vessels. At the level of the renal arteries, the atherosclerotic aorta is 2.3 cm AP, 2.3 cm transverse diameter. The infrarenal abdominal aorta is ectatic and measures up to maximum of 2.5 cm transverse and 2.6 cm AP diameter. No retroperitoneal hematoma. LYMPH NODES: No pathologic sized lymph nodes within the abdomen or pelvis. PELVIC VISCERA: Prominent prostate gland is 4.9 cm transverse and 3.6 cm AP. No pelvic free fluid. OSSEOUS STRUCTURES: Lumbar vertebra have normal height and alignment. No acute fractures within the anterior or posterior elements. Within the lumbar spine, facet osteoarthritis is most severe on the right at L5-S1. Pelvic bones and proximal femurs are intact. IMPRESSION: 1. No acute traumatic pathology in the chest, abdomen or pelvis. 2. Lytirxrm-iv-eojhxc pulmonary emphysema and findings consistent with chronic interstitial lung disease, as well. 3. Atherosclerotic disease of coronary arteries and thoracic aorta without aortic aneurysm. 4. Atherosclerotic infrarenal abdominal aorta measures up to 2.6 cm AP diameter. No abdominal aortic aneurysm or retroperitoneal hematoma. 5. Cholelithiasis without cholecystitis.
--- NOTE | 2016-11-21 16:20 | NUR ---
TBA SEEN BY MOD TEAM
[2016-11-21] MEDS ORDERED: ASPIRIN EC81 M1 PO (16:27)
--- NOTE | 2016-11-21 16:37 | History & Physical ---
GAVIOTA CARDOZO 11/21/16 1637: General Information and HPI MD Statement: I have seen and personally examined GABRIEL ARORA and documented this H&P. The patient is a 86 year old M who presented with a patient stated chief complaint of [back pain status post fall]. Source of Information: patient, old records Exam Limitations: confusion History of Present Illness: Patient is 84 year old male with past medical history of CAD, AR, CABG, hypertension, syncopal episodes in the past(over 10 years ago), prostate cancer( 3-4years) and breast cancer (2-3 year), presenting to ED status post fall associated with severe back pain that had been today. According to the patient and his family for the past month he complained off recurrent multiple falls. Patient was walker to walk. He stated that he was walking using his walker and after that he felt to his side, he deny any symptoms like heart racing, dizziness, lightheaded, lose of consciousness, urine or bowel incontinence, seizure activity neither before or after. He stated that the pain is in his neck and mid spine that was 10 out of 10 in severity, dull in nature, nonradiating, moderate relieved with pain medication that was given in the emergency department. Also reports difficulty ambulation or even left his both lower extremity due to the pain. Patient was slightly confused according to the family it could be secondary to the morphine as this is his first time to receive it. Patient deny any fever, chills, headaches, shortness of breath, chest pain, heart racing, abdominal pain, nausea, vomiting, constipation, diarrhea, dysuria, hematuria. In the emergency chemistry department chair to mid thigh CT scan was done no signs of acute fractures were noted. Patient received 3 mg of IV morphine. Lost admission to [facility] was on September 2016 due to hypercalcemia/ hyponatremia and generalized weakness. Allergies/Medications Allergies: Coded Allergies: lansoprazole (UPSET STOMACH 09/02/15) lovastatin (UPSET STOMACH 09/02/15) rosuvastatin (UPSET STOMACH 09/02/15) alendronate sodium (UPSET STOMACH 09/02/15) esomeprazole (UPSET STOMACH 09/02/15) ezetimibe (UPSET STOMACH 09/02/15) fenofibrate (UPSET STOMACH 09/02/15) Home Med list Anastrozole 1 MG TABLET 1 TAB PO DAILY CANCER (Reported) Aspirin (Ecotrin*) 81 MG TABLET.DR 1 TAB PO DAILY heart health (Reported) Calcium (Elemental-Fr Calcarb) (Calcium) 600 MG CALCIUM (1,500 MG) TABLET 1 TAB PO TID SUPPLEMENT (Reported) Cholecalciferol (Vitamin D3) 1,000 UNIT TABLET 3 TAB PO DAILY SUPPLEMENT ( Reported) Ginkgo Biloba [address] Extract (Ginkgo Biloba) 30 MG CAPSULE 1 CAP PO DAILY SUPPLEMENT (Reported) Levothyroxine Sodium 75 MCG TABLET 1 TAB PO DAILY AC THYROID (Reported) Metoprolol Tartrate 25 MG TABLET 1 TAB PO BID HTN (Reported) Niacin (Niaspan) 500 MG TAB.ER.24H 2 CAP PO DAILY SUPPLEMENT (Reported) [place]-3 Fatty Acids (Fish Oil Concentrate) 1,000 MG CAPSULE 2 CAP PO DAILY SUPPLEMENT (Reported) Psyllium Hydrophylic Muciloid (Metamucil Packet) 3.4 GRAM POWD.PACK 1 PAC PO DAILY GI (Reported) Ranitidine HCl (Zantac) 150 MG TABLET 1 TAB PO DAILY ACID REFLUX (Reported) Vit C/E/Zn/Coppr/Lutein/Zeaxan (Preservision Areds 2 Softgel) 250-200-40 CAPSULE 1 CAP PO BID EYE (Reported) Vitamin B Complex (Balanced B-100) 1 EACH TABLET 1 TAB PO DAILY VITAMIN SUPPORT (Reported) Past History Travel History Traveled to [place] past 21 day No Medical History Neurological: NONE EENT: NONE Cardiovascular: hypertension, hyperlipidemia, myocardial infarction, NSTEMI Respiratory: NONE Gastrointestinal: GERD Hepatic: NONE Renal: NONE Musculoskeletal: NONE Psychiatric: NONE Endocrine: NONE Blood Disorders: NONE Cancer(s): breast cancer, prostate cancer DIVERSIFIED CROPS FARMWORKER/Reproductive: NONE History of MRSA: No History of VRE: No History of CDIFF: No Tetanus Vaccine: 11/01/11 Surgical History Surgical History: hernia repair-umbilical, masectomy Past Family/Social History Family History Relations & Conditions if any Relation not specified for: *No pertinent family history Psychosocial History Services at Home: None ETOH Use: denies use Illicit Drug Use: denies illicit drug use Functional Ability ADLs Independent: dressing, eating, toileting, bathing. Ambulation: independent, cane, walker, non-ambulatory IADLs Independent: shopping, housework, finances, food prep, telephone, transportation , medication admin. Review of Systems Review of Systems Constitutional: Reports: see HPI. Cardiovascular: Reports: see HPI. Respiratory: Reports: see HPI. GI: Reports: see HPI. Genitourinary: Reports: see HPI. Musculoskeletal: Reports: see HPI. Exam & Diagnostic Data Last 24 Hrs of Vital Signs/I&O Vital Signs Date Time Temp Pulse Resp B/P B/P Pulse O2 O2 Flow FiO2 Mean Ox Delivery Rate 11/21 1702 82 18 180/90 97 Room Air 11/21 1505 98.3 84 18 172/89 94 Room Air 11/21 1203 74 16 170/84 92 Room Air Room Air Intake & Output 11/21 1600 11/21 0800 11/21 0000 Intake Total Output Total Balance Patient 170 lb Weight Weight Estimated Measurement Method Physical Exam General Appearance Alert, Oriented X3, Cooperative HEENT PERRLA, EOMI Neck Supple Cardiovascular Regular Rate, Normal S1, Normal S2 Lungs Clear to Auscultation, Normal Air Movement Abdomen Normal Bowel Sounds, Soft, No Tenderness Neurological Normal Speech, Sensation Intact, 2/5 strength of both Lower Ext. , due to severe pain the patient decline back examination Extremities No Cyanosis, No Edema Last 24 Hrs of Labs/Tommy: Laboratory Tests 11/21/16 1223: Anion Gap 12, Estimated GFR > 60, BUN/Creatinine Ratio 14.4, Glucose 115 H, Calcium 10.0, Total Bilirubin 0.7, AST 40, ALT 41, Alkaline Phosphatase 71, Troponin I < 0.01, Total Protein 7.6, Albumin 4.2, Globulin 3.4, Albumin/ Globulin Ratio 1.2, CBC w Diff NO MAN DIFF REQ, RBC 4.83, MCV 96.6 H, MCH 32.2 H, RDW 13.9, MPV 7.1 L, Gran % 81.1 H, Lymphocytes % 7.4 L, Monocytes % 9.3, Eosinophils % 2.1, Basophils % 0.1, Absolute Granulocytes 5.6, Absolute Lymphocytes 0.5 L, Absolute Monocytes 0.6, Absolute Eosinophils 0.1, Absolute Basophils 0, PUBS MCHC 33.3 Diagnostic Data Other Results EXAMINATION: CT HEAD W/O IV CONTRAST CT CERVICAL SPINE W/O IV CONTRAST CLINICAL INFORMATION: 86-year-old male status post trauma. Patient fell and struck head. COMPARISON: Head CT from 07/11/2016. Cervical spine CT from 11/01/2011. TECHNIQUE: Head - Contiguous axial imaging of the head was performed from the skull base to the vertex without the administration of intravenous contrast, and axial images are reconstructed at 0.625 mm, 2.5 mm and 5 mm slice thickness. Cervical spine - A volumetric, helical CT acquisition of the cervical spine was obtained without contrast; in addition to the standard set of axial images, multiplanar reformatted images were provided in the coronal and sagittal imaging planes. DLP: 964 mGy-cm (total) FINDINGS: HEAD: No acute intracranial hemorrhage. Again noted is atherosclerotic calcification of the vertebral, basilar and carotid arteries and chronic small vessel ischemic changes of supratentorial white matter. The chatman-white matter differentiation is well preserved. Stable appearance of the extra-axial collection of cerebral spinal fluid attenuation of the right frontoparietal convexity that exhibits chronic, mild mass effect upon the underlying cerebral hemisphere. Chronic atrophy of cerebral and cerebellar hemispheres with symmetric appearance of the ventricles and basilar cisterns. The calvarium is intact and the mastoid air cells and middle ear cavities are clear. There are secretions within the left maxillary sinus which has a small air-fluid level. The lenses have been extracted from the globes. CERVICAL SPINE: There is normal curvature of the cervical spine. The craniocervical junction is intact. The occipital condyles, atlas, axis and atlantoaxial articulation are intact. The vertebral body heights and alignment are maintained. No acute fractures in the anterior or posterior elements. There is no prevertebral soft tissue swelling. There is chronic multilevel degenerative disc disease, facet osteoarthritis and uncovertebral joint hypertrophy. Facet arthropathy and uncovertebral joint hypertrophy produce owdipzsh-mi-cuopnn right-sided and moderate left-sided foraminal stenosis at C3-C4. Also, there is choockdz-cg-syavhs right-sided foraminal stenosis at C4-C5. Mild bilateral foraminal stenosis is observed at C5-C6, C6-C7 and on the left at C7-T1. Chronic pleural-based scarring at lung apices. Thyroid gland is atrophied. There are no fluid collections within the visualized neck. IMPRESSION: 1. No acute intracranial pathology compared to 07/11/2016. 2. No acute fracture or traumatic subluxation in the chronically degenerated cervical spine. 3. Left maxillary sinus secretions with small air-fluid level of the sinus. Correlate for any clinical signs/symptoms of an active left maxillary sinusitis. EXAMINATION: CT CHEST WITHOUT IV CONTRAST CT ABDOMEN AND PELVIS WITHOUT IV CONTRAST CLINICAL INFORMATION: 86-year-old male with back pain and confusion after trauma/fall. COMPARISON: No recent imaging exams of abdomen pelvis within the electronic picture archive. TECHNIQUE: Noncontrast multidetector CT imaging examination of the chest, abdomen and pelvis was performed. Axial images are displayed at 5 mm and 0.625 mm slice thickness. Coronal and sagittal reformatted images were generated at the technologist's workstation and submitted for review. DLP: 505 mGy-cm FINDINGS: CHEST - LUNGS and PLEURA: Mucus/secretions along the tracheal wall. Qiljvhvl-wz-phdith centrilobular and paraseptal emphysema. Chronic pleural-based scarring with pleural calcifications at the lung apices. Also, there are bilateral peripheral reticular opacities of chronic fibrosis with scattered regions of subpleural honeycombing and traction bronchiectasis, most conspicuous within the right middle lobe and inferior lingula. No evidence of superimposed acute interstitial edema, focal consolidation, pneumothorax or pleural effusion. MEDIASTINUM: There is three-vessel coronary artery atherosclerotic calcification. Thoracic aorta is calcified and without aneurysm. No pericardial effusion. The esophagus is unremarkable. Thyroid gland is atrophied. LYMPHATICS: No pathologic sized axillary, hilar or mediastinal lymph nodes. CHEST WALL/BONES: No acute findings in the degenerated spine. Mild concavity of T5 superior endplate without acute fracture. 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 No evidence of an acute, displaced rib fracture or sternal fracture. ABDOMEN AND PELVIS - HEPATOBILIARY: Liver has normal size and contour. Small, 0.4 cm hypodense focus in the anterior hepatic segment near the hepatic dome is likely a cyst. No suspicious hepatic lesion or intrahepatic bile duct dilatation. Gallbladder has small calcified stones. PANCREAS: Pancreas is atrophied. No pancreatic ductal dilatation or peripancreatic edema. SPLEEN: Unremarkable. ADRENAL GLANDS: Unremarkable. KIDNEYS, URETERS, BLADDER: No evidence of nephrolithiasis or hydroureteronephrosis. Urinary bladder is moderately distended and has normal wall thickness. No bladder calculi. GASTROINTESTINAL TRACT: Loops of bowel are normal in caliber. No evidence of acute inflammation or obstruction along the gastrointestinal tract. No ascites or pneumoperitoneum. ABDOMINAL WALL: There is intact mesh of the lower abdominal wall and overlying the inguinal canals. VASCULAR: There is extensive atherosclerotic calcification of the aorta and iliofemoral vessels. At the level of the renal arteries, the atherosclerotic aorta is 2.3 cm AP, 2.3 cm transverse diameter. The infrarenal abdominal aorta is ectatic and measures up to maximum of 2.5 cm transverse and 2.6 cm AP diameter. No retroperitoneal hematoma. LYMPH NODES: No pathologic sized lymph nodes within the abdomen or pelvis. PELVIC VISCERA: Prominent prostate gland is 4.9 cm transverse and 3.6 cm AP. No pelvic free fluid. OSSEOUS STRUCTURES: Lumbar vertebra have normal height and alignment. No acute fractures within the anterior or posterior elements. Within the lumbar spine, facet osteoarthritis is most severe on the right at L5-S1. Pelvic bones and proximal femurs are intact. IMPRESSION: 1. No acute traumatic pathology in the chest, abdomen or pelvis. 2. Cddimvah-sx-ftdyux pulmonary emphysema and findings consistent with chronic interstitial lung disease, as well. 3. Atherosclerotic disease of coronary arteries and thoracic aorta without aortic aneurysm. 4. Atherosclerotic infrarenal abdominal aorta measures up to 2.6 cm AP diameter. No abdominal aortic aneurysm or retroperitoneal hematoma. 5. Cholelithiasis without cholecystitis. Assessment/Plan Assessment: Patient is 84 year old male with past medical history of CAD, AR, CABG, hypertension, syncopal episodes in the past(over 10 years ago), prostate cancer( 3-4years) and breast cancer (2-3 year), presenting to ED status post fall associated with severe back pain. Problem list: -Generalized weakness -Severe intractable back pain -Multiple falls Plan: -Admit patient to general medicine floor -Vitals every shift -Physical therapy in a.m. for placement -Pain management with Lidoderm patch, 2 mg of IV morphine every 8 for severe pain, Toradol 15 mg every 8 for moderate pain, Tylenol every 4 for mild pain. -We'll escalate his pain medication as his medical condition allowed to control his pain -Monitor mental status for any sign and symptoms of delirium. -Bowel regimen to avoid constipation -Continue his home medication -Heart healthy diet -DVT prophylaxis subcutaneous heparin -Full code As Ranked By This Provider Problem List: 1. Intractable back pain Core Measures/Miscellaneous Acute Coronary Syndrome ACS Diagnosis: No Cerebrovascular Accident CVA/TIA Diagnosis: No Congestive Heart Failure CHF Diagnosis: No VTE (View Protocol) VTE Risk Factors: Acute medical illness, Age > 40, Cancer/chemo/oth therapy, Immobility, paresis No Mech VTE prophylaxis d/t: No contraindications No VTE Pharm Prophylaxis d/t: No contraindications VTE Diagnosis: No VTE Type: NONE VTE Confirmed by (Test): NONE Sepsis (View Protocol) Severe Sepsis Present: No Septic Shock Septic Shock Present: No Miscellaneous Documentation Attending Case Discussed With: JADE ALEXANDRE MD Primary Care Physician: МАРИЯ JOHNSON MD Patient sees these Specialists gm Level of Patient Care: General Medicine JADE ALEXANDRE MD 11/22/16 1109: Attending MD Review Statement Attending Statement Attending MD Statement: examined this patient, discuss w/resident/PA/COMMERCIAL INTERN, agreed w/resident/PA/COMMERCIAL INTERN, discussed with family, reviewed EMR data (avail), discussed with nursing Attending Assessment/Plan: 86M PMH CAD, AR, CABG, hypertension, syncopal episodes in the past(over 10 years ago), prostate cancer(3-4years) and breast cancer (2-3 year) presenting with a several month history of recurrent falls and acute onset of lower back pain 2 days ago with the inability to walk. Patient appears comfortable at rest but has severe lower back pain when trying to move. He is neurologically intact but exam is limited by pain. CT head and spine were unremarkable. Plan - Admit to general medicine - Morphine, Toradol, Lidocaine patch - Can start Flexeril - PT eval - Neurology consult for frequent falls and loss of balance with now back pain - Continue home medications - DVT PPx
--- NOTE | 2016-11-21 16:38 | NUR ---
PT ROOM ASSIGNMENT [id number] 1
--- NOTE | 2016-11-21 16:40 | NUR ---
REPORT GIVEN TO FLOOR AWAITING RECALL WHEN ROOM IS READY
--- NOTE | 2016-11-21 17:01 | NUR ---
PATIENT GIVEN 0.6 MG DILAUDID FOR CONTINUED PAIN
--- NOTE | 2016-11-21 17:17 | NUR ---
BED IS READY AT THIS TIME
--- NOTE | 2016-11-21 17:21 | NUR ---
PATIENT REPORT ,PAIN HAS DIMINISHED IS A LITTLE BETTER BED IS KNOW READY TRANS ARRANGED
[2016-11-21 17:55] VITALS: BP 178/86
--- NOTE | 2016-11-21 18:30 | NUR ---
ADMISSION NOTE- PT ARRIVED TO FLOOR AT THIS TIME, ALERT, ORIENTED TO SELF AND PLACE BUT NOT TO TIME. PER FAMILY THIS IS NOT PT'S BASELINE, AND THEY ONLY NOTED CONFUSION AFTER MORPHINE WAS GIVEN IN THE ER . CALL PLACED TO CABINETMAKER SUPERVISOR REGARDING THIS, AWAITING CALL BACK. ON RA. LUNGS CLEAR. ABD SOFTLY DISTENDED. PER FAMILY LBM YESTERDAY. VOIDING WNL AT HOME PER FAMILY. SKIN INTACT NO EDEMA. ALPS APPLIED. PT GRIMACING IN PAIN WHEN TURNED AND REPOSITIONED IN BED AND WITH HOB ELEVATED. PER FAMILY PT WAS NOT ABLE TO EAT DINNER IN ER DUE TO BEING UNABLE TO SIT UP STRAIGHT FROM THE PAIN. USES RW AT HOME INDEP BUT STATES SHE NOTICED THAT PT WAS NEEDING HELP WITH ADL'S IN THE PAST WEEK MORE THAN HE USUALLY DOES. RESTRICTED ON R SIDE HX MASTECTOMY. VSS. BED ALARM IN PLACE. WILL MONITOR
[2016-11-21 22:08] VITALS: BP 138/94
--- NOTE | 2016-11-21 23:24 | NUR ---
PT HAS NOT VOIDED FOR THIS SHIFT- ATTEMPTED TO ASSIST PT WITH URINAL, UNABLE TO VOID, ABD DISTENDED, DENIES PAIN. BLADDER SCANNED FOR >777. CALL PLACED TO WING COVERER IMGE-ORDER OBTAINED FOR STRAIGHT CATH. SMALL AMT WHITE DISCHARGE NOTED TO TIP OF PENIS. STRAIGHT CATHED FOR 900 CC CLOUDY YELLOW URINE, SENT FOR UA/UC. WILL REPORT OFF TO ONCOMING NURSE.
[2016-11-22 06:30] VITALS: BP 144/80
--- NOTE | 2016-11-22 08:16 | PN- Housestaff ---
MARISA HARRELL,[facility] 11/22/16 0816: Subjective Follow-up For: Mechanical fall Low back pain Subjective: Patient was seen and examined this morning, afebrile, vital signs are stable, reported excruciating low back pain on ambulation. Nurse reported that patient couldn't walk with PT today because of low back pain. She also reported that he denied taking any strong pain medication such as morphine. Review of Systems Constitutional: Reports: see HPI. Objective Last 24 Hrs of Vital Signs/I&O Vital Signs Date Time Temp Pulse Resp B/P B/P Pulse O2 O2 Flow FiO2 Mean Ox Delivery Rate 11/22 0954 88 160/80 11/22 0630 97.4 68 20 144/80 92 Room Air 11/21 2208 99.0 90 20 138/94 91 Room Air 11/21 1755 97.9 89 20 178/86 92 Room Air 11/21 1702 82 18 180/90 97 Room Air 11/21 1505 98.3 84 18 172/89 94 Room Air Intake & Output 11/22 1600 11/22 0800 11/22 0000 Intake Total 450 400 Output Total 0 900 Balance 450 -500 Intake, IV 400 400 Intake, Oral 50 Output, Urine 0 900 Patient 73.482 kg Weight Physical Exam General Appearance: Alert, Oriented X3, Cooperative Skin: No Rashes, No Breakdown, No Significant Lesion Cardiovascular: Regular Rate, Normal S1, Normal S2, No Murmurs Lungs: Clear to Auscultation, Normal Air Movement Abdomen: Normal Bowel Sounds, Soft, No Tenderness, No Hepatospenomegaly, No Masses Neurological: Normal Speech, Strength at 5/5 X4 Ext, Normal Tone, Sensation Intact, Cranial Nerves 3-12 NL, Reflexes 2+ Extremities: No Clubbing, No Cyanosis, No Edema, Normal Pulses, No Tenderness/ Swelling Assessment/Plan Assessment: Patient is 84 year old male with past medical history of CAD, CT, CABG, hypertension, syncopal episodes in the past(over 10 years ago), prostate cancer( 3-4years) and breast cancer (2-3 year), presenting to ED status post fall associated with severe back pain. CT chest, abdomen, pelvis and head 11/21/16 IMPRESSION: 1. No acute traumatic pathology in the chest, abdomen or pelvis. 2. Ovqmhwcn-ot-hpbvbt pulmonary emphysema and findings consistent with chronic interstitial lung disease, as well. 3. Atherosclerotic disease of coronary arteries and thoracic aorta without aortic aneurysm. 4. Atherosclerotic infrarenal abdominal aorta measures up to 2.6 cm AP diameter. No abdominal aortic aneurysm or retroperitoneal hematoma. 5. Cholelithiasis without cholecystitis. Problem list: -Generalized weakness -Severe intractable back pain -Multiple falls Plan: -Optimal pain management:lidoderm patch, 2 mg of IV morphine every 8 for severe pain, Toradol 15 mg every 8 for moderate pain, Tylenol every 4 for mild pain. -Start cyclobenzaprine 5 mg 4 times a day -Physical therapy -We'll obtain neuro consultation -Bowel regimen to avoid constipation -Heart healthy diet Code full DVT prophylaxis heparin subcutaneous Problem List: 1. Breast cancer in male 2. Fall 3. Intractable back pain Pain Ratin Pain Location: Low back pain Pain Goal: Pain 4 or less Pain Plan: Moderate-severe pain pathway Tomorrow's Labs & Rationales: JADE JARRETT MD 11/22/16 1111: Attending MD Review Statement Attending Statement Attending MD Statement: examined this patient, discuss w/resident/PA/METAL REFINER, agreed w/resident/PA/METAL REFINER, reviewed EMR data (avail) Attending Assessment/Plan: 86M PMH CAD, CT, CABG, hypertension, syncopal episodes in the past(over 10 years ago), prostate cancer(3-4years) and breast cancer (2-3 year) presenting with a several month history of recurrent falls and acute onset of lower back pain 2 days ago with the inability to walk. Patient appears comfortable at rest but has severe lower back pain when trying to move. He is neurologically intact but exam is limited by pain. CT head and spine were unremarkable. Plan - Admit to general medicine - Morphine, Toradol, Lidocaine patch - Can start Flexeril - PT eval - Neurology consult for frequent falls and loss of balance with now back pain - Continue home medications - DVT PPx
[2016-11-22 08:43] LABS: ABSOLUTE BASOPHIL COUNT 0 /CUMM (0.0-0.2); ABSOLUTE EOSINOPHIL COUNT 0.1 /CUMM (0.0-0.7); ABSOLUTE GRANULOCYTE CT 5.6 /CUMM (1.4-6.5); ABSOLUTE LYMPH COUNT 0.4 /CUMM (1.2-3.4); ABSOLUTE MONOCYTE COUNT 0.8 /CUMM (0.10-0.60); BASOPHIL % 0.1 % (0.0-2.0); EOSINOPHIL % 1.8 % (0-5); GRANULOCYTE % 81.2 % (42.2-75.2); MEAN CORPUSCULAR HGB 32.3 PG (27.0-31.0); MEAN CORPUSCULAR HGB CONC 33.7 G/DL (33.0-37.0); MEAN CORPUSCULAR VOLUME 96.1 FL (80.0-94.0); MEAN PLATELET VOLUME 7.5 FL (7.4-10.4); PLATELET COUNT 165 /CUMM (130-400); RBC DISTRIBUTION WIDTH 13.7 % (11.5-14.5); RED BLOOD CELL CT 4.59 /CUMM (4.70-6.10); WHITE BLOOD CELL COUNT 6.9 /CUMM (4.8-10.8)
--- NOTE | 2016-11-22 11:12 | Admission Certification ---
Admission Certification Certification Statement - As attending physician, I certify that at the time of - admission, based on clinical presentation, severity of - symptoms, need for further diagnostic testing and - therapeutic interventions, and risk of adverse outcomes - without in-hospital treatment, in my clinical assessment, - this patient requires an acute hospital stay for a minimum - of two nights or longer. I have also considered psychsocial - factors such as support system, advanced age, financial - issues, cognitive issues, and failed out-patient treatments, - past re-admission history, safety of patient, and lack of - compliance as applicable. Specific rationale supporting this admission is: Intractable back pain and unable to ambulate
[2016-11-22 14:40] VITALS: BP 140/74
--- NOTE | 2016-11-22 16:44 | NUR ---
PT STATING THAT HE HAS TO VOID, PROVIDED URINAL BUT UNABLE TO VOID. ABD SOFTLY DISTENDED. BLADDER SCANNED FOR 600 AT THIS TIME, CALL TO BAR MACHINE OPERATOR PRODUCTION FOR STRAIGHT CATH PROTOCOL, STRAIGHT CATHED FOR 650 CC CLEAR YELLOW URINE. WILL CONTINUE TO FOLLOW PROTOCOL.
--- NOTE | 2016-11-22 20:00 | NUR ---
PT INCT LARGE AMT URINE, INCT CARE PROVIDED AND BED CHANGE DONE. BLADDER SCANNED FOR 0 CC URINE. WILL CONTINUE TO MONITOR
--- NOTE | 2016-11-22 22:40 | NUR ---
LATE ENTRY: PT APPEARS ANXIOUS/ AGITATED. CONTINUES TO BE CONFUSED TO PLACE AND TIME STATING " IM GOING TO THE [facility]" WHILE ATTEMPTING TO GET OOB. BED ALARM IN PLACE. CALL TO PILLOWCASE SEWER- SEE NEW ORDER FOR PO HALDOL-GIVEN ORDERED. WILL CONTINUE TO MONITOR.
[2016-11-22 22:49] VITALS: BP 160/60
[2016-11-23 06:39] VITALS: BP 120/64
--- NOTE | 2016-11-23 07:09 | PN- Housestaff ---
MARISA HARRELL,[facility] 11/23/16 0709: Subjective Follow-up For: Mechanical fall Low back pain Confusion Subjective: Patient was seen and examined this morning, alert, not oriented, no acute distress. He reported severe low back pain upon movement, unable to move his back because of intractable pain. Afebrile, vital signs are stable. No overnight events reported by the nurse of the patient. Nurse reported chucking attacks while patient taking medication, will obtain swallow evaluation Review of Systems Constitutional: Reports: see HPI. Objective Last 24 Hrs of Vital Signs/I&O Vital Signs Date Time Temp Pulse Resp B/P B/P Pulse O2 O2 Flow FiO2 Mean Ox Delivery Rate 11/23 1428 98.1 79 20 120/60 95 11/23 1401 Room Air Room Air 11/23 0838 80 120/64 11/23 0639 98.0 80 16 120/64 97 Room Air 11/22 2249 98.6 85 20 160/60 92 Room Air Intake & Output 11/23 1600 11/23 0800 11/23 0000 Intake Total 400 450 400 Output Total 1250 650 Balance 400 -800 -250 Intake, IV 400 400 400 Intake, Oral 50 Output, Urine 1250 650 Physical Exam General Appearance: Alert, Cooperative, No Acute Distress Skin: No Rashes, No Breakdown, No Significant Lesion HEENT: Atraumatic, PERRLA, EOMI, Mucous Membr. moist/pink Neck: Supple, No JVD Cardiovascular: Regular Rate, Normal S1, Normal S2, No Murmurs Lungs: Clear to Auscultation, Normal Air Movement Abdomen: Normal Bowel Sounds, Soft, No Tenderness Neurological: Normal Speech, Strength at 5/5 X4 Ext, Normal Tone, Sensation Intact Extremities: No Clubbing, No Cyanosis, No Edema, Normal Pulses, No Tenderness/ Swelling Assessment/Plan Assessment: Patient is 84 year old male with past medical history of CAD, MA, CABG, hypertension, syncopal episodes in the past(over 10 years ago), prostate cancer( 3-4years) and breast cancer (2-3 year), presenting to ED status post fall associated with severe back pain. CT chest, abdomen, pelvis and head 11/21/16 IMPRESSION: 1. No acute traumatic pathology in the chest, abdomen or pelvis. 2. Gqyavgka-hq-ffrylg pulmonary emphysema and findings consistent with chronic interstitial lung disease, as well. 3. Atherosclerotic disease of coronary arteries and thoracic aorta without aortic aneurysm. 4. Atherosclerotic infrarenal abdominal aorta measures up to 2.6 cm AP diameter. No abdominal aortic aneurysm or retroperitoneal hematoma. 5. Cholelithiasis without cholecystitis. Problem list: -Generalized weakness -Severe intractable back pain -Multiple falls -Confusion Plan: -Optimal pain management: Acetaminophen 1000 mg every 8, lidoderm patch, oxycodone 2.5 mg every 6 when necessary, Tylenol every 4 for mild pain -Continue cyclobenzaprine 5 mg 4 times a day -Physical therapy, recommendation for STR -We'll obtain lumber spine MRI -Neuro consultation for confusion, multiple falls questionable Parkinson disease -Bowel regimen to avoid constipation -Heart healthy diet mechanical soft and nectar fluid Code full DVT prophylaxis heparin subcutaneous Problem List: 1. Intractable back pain Pain Ratin Pain Location: Low back pain upon movement Pain Goal: Pain 4 or less Pain Plan: Severe pain pathway Tomorrow's Labs & Rationales: None ANAYA HARRELL,[facility] 11/23/16 1303: Attending MD Review Statement Attending Statement Attending MD Statement: examined this patient, discuss w/resident/PA/ROUTE RIDER SUPERVISOR, agreed w/resident/PA/ROUTE RIDER SUPERVISOR, discussed with family, reviewed EMR data (avail), discussed with nursing, discussed with case mgmt, reviewed images, amended to note Attending Assessment/Plan: Patient seen and examined, continue to complain of excruciating back pain. Patient is admitted with a fall as well as back pain. Vital Signs Date Time Temp Pulse Resp B/P B/P Pulse O2 O2 Flow FiO2 Mean Ox Delivery Rate 11/23 0838 80 120/64 11/23 0639 98.0 80 16 120/64 97 Room Air 11/22 2249 98.6 85 20 160/60 92 Room Air 11/22 1440 97.1 68 18 140/74 92 Room Air on exam; awake, nad, somewhat confused. cv; s1,s2, rrr resp; clear abd; soft, nt, bs+ ext; no edema. neuro; 5/5 strength in b/l lower ext. Laboratory Tests 11/23 0702 Chemistry Sodium (137 - 145 mmol/L) 132 L Potassium (3.5 - 5.1 mmol/L) 4.3 Chloride (98 - 107 mmol/L) 100 Carbon Dioxide (22 - 30 mmol/L) 24 Anion Gap (5 - 16) 8 BUN (9 - 20 mg/dL) 12 Creatinine (0.7 - 1.2 mg/dL) 0.8 Estimated GFR (>60 ml/min) > 60 BUN/Creatinine Ratio (7 - 25 %) 15.0 A/P: 86 M with pmh sig for CAD, MA, CABG, hypertension, syncopal episodes in the past(over 10 years ago), prostate cancer and breast cancer admitted with a fall as well as intractable low back pain. CT abdomen and pelvis did not show any evidence of fracture. Patient continues to have excruciating back pain. We'll start the patient on scheduled Tylenol, continue Flexeril and add low-dose oxycodone for breakthrough pain. Will obtain MRI of the LS-spine. Neurology is consulted for frequent fall especially backward falls. Question Parkinson's disease. Encourage by mouth intake and then DC IV fluids. DVT prophylaxis: Heparin subcutaneous. Patient to work with physical therapy.
[2016-11-23 14:28] VITALS: BP 120/60
--- NOTE | 2016-11-23 16:10 | NUR ---
PT LEFT FLOOR TO GET AN MRI.
--- NOTE | 2016-11-23 18:02 | PN- Neurology ---
Subjective Subjective: Numerous attempts to see patient's were unrewarding. Patient was out of the room for testing throughout the afternoon.
--- NOTE | 2016-11-23 21:53 | NUR ---
PT INCREASINGLY CONFUSED AND AGITATED. REFUSED EVENING MEDICATIONS AND VITAL SIGNS. NUCLEAR EQUIPMENT OPERATOR IMGE UP TO SEE PT. PT AT THIS TIME AGREEABLE TO MEDICATIONS. ATTEMPTED TO GIVE MEDICATIONS WITH IMGE PRESENT. PT REFUSED. PT STATED, "I'M ABSOLUTELY NOT TAKING ANY OF THAT." WILL CONTINUE TO MONITOR.
[2016-11-24 06:16] VITALS: BP 118/66
--- NOTE | 2016-11-24 07:16 | PN- Housestaff ---
See Addendum Subjective Follow-up For: Mechanical fall Low back pain Confusion Subjective: Patient was seen and examined this morning, he is confused, was agitated in the evening. There is reported 2 episodes of urinary incontinence. Continue to complain of back pain. Vital signs are stable, afebrile. MRI lumbar spine was obtained yesterday. Review of Systems Constitutional: Reports: see HPI. Objective Last 24 Hrs of Vital Signs/I&O Vital Signs Date Time Temp Pulse Resp B/P B/P Pulse O2 O2 Flow FiO2 Mean Ox Delivery Rate 11/24 1053 Room Air Room Air 11/24 1018 110 130/80 11/24 0616 98.6 107 20 118/66 94 Room Air 11/23 1428 98.1 79 20 120/60 95 11/23 1401 Room Air Room Air Intake & Output 11/24 1600 11/24 0800 11/24 0000 Intake Total 400 380 Output Total Balance 400 380 Intake, IV 400 350 Intake, Oral 0 30 Number 1 Bowel Movements Physical Exam General Appearance: Alert, Cooperative, No Acute Distress Skin: No Rashes, No Breakdown, No Significant Lesion Skin Temp/Moisture Exam: Warm/Dry HEENT: Atraumatic, PERRLA, EOMI, Mucous Membr. moist/pink Neck: Supple, No JVD Cardiovascular: Regular Rate, Normal S1, Normal S2, No Murmurs Lungs: Clear to Auscultation, Normal Air Movement Abdomen: Normal Bowel Sounds, Soft, No Tenderness, No Hepatospenomegaly, No Masses Neurological: Strength at 5/5 X4 Ext, Normal Tone, Sensation Intact, Reflexes 2+ Extremities: No Clubbing, No Cyanosis, No Edema, Normal Pulses, No Tenderness/ Swelling Assessment/Plan Assessment: Patient is 84 year old male with past medical history of CAD, CT, CABG, hypertension, syncopal episodes in the past(over 10 years ago), prostate cancer( 3-4years) and breast cancer (2-3 year), presenting to ED status post fall associated with severe back pain. CT chest, abdomen, pelvis and head 11/21/16 IMPRESSION: 1. No acute traumatic pathology in the chest, abdomen or pelvis. 2. Icisfwqo-gr-rlhtda pulmonary emphysema and findings consistent with chronic interstitial lung disease, as well. 3. Atherosclerotic disease of coronary arteries and thoracic aorta without aortic aneurysm. 4. Atherosclerotic infrarenal abdominal aorta measures up to 2.6 cm AP diameter. No abdominal aortic aneurysm or retroperitoneal hematoma. 5. Cholelithiasis without cholecystitis. MRI 11/23/29 1. As described above are transitional vertebrae at the thoracolumbar and lumbosacral junctions, which should be correlated with plain films before any intervention is undertaken. 2. There is loss of vertebral body height with increased STIR signal in the superior body of T12, consistent with an acute/subacute fracture. 3. There is mild multilevel spondylosis. There is no significant foraminal narrowing or central stenosis. Problem list: -Generalized weakness -Severe intractable back pain -Multiple falls -Confusion Plan: -Optimal pain management: Acetaminophen 1000 mg every 8, lidoderm patch, oxycodone 2.5 mg every 6 when necessary, Tylenol every 4 for mild pain -Continue cyclobenzaprine 5 mg 4 times a day -Physical therapy, recommendation for STR -MRI lumbar spine was obtained yesterday given continuous intractable pain at 3 field acute to subacute T12 fracture -We'll obtain orthopedic consultation -Neuro consultation for confusion, multiple falls questionable Parkinson disease , pending -Bowel regimen to avoid constipation -Heart healthy diet mechanical soft and nectar fluid Code full DVT prophylaxis heparin subcutaneous Problem List: 1. Intractable back pain Pain Ratin Pain Location: Low back pain Pain Goal: Pain 4 or less Pain Plan: Acetaminophen 100 mg every 6 casual dose, acetaminophen when necessary. Lidocaine patch Tomorrow's Labs & Rationales: BMP
--- NOTE | 2016-11-24 08:21 | MRI REPORT ---
EXAMINATION: MR LUMBAR SPINE WITHOUT CONTRAST CLINICAL INFORMATION: Severe back pain. Disc degenerative disease, spinal pathology. COMPARISON: CT scan of the chest, abdomen and pelvis 11/23/2016. TECHNIQUE: MRI of the lumbar spine without contrast was obtained using routine sequences. FINDINGS: VERTEBRAL BODIES AND PARASPINAL STRUCTURES: There are transitional vertebrae at the thoracolumbar and lumbosacral junctions. At T12, there are relatively small riblets bilaterally. There is partial sacralization of L5; the lowermost fully formed intervertebral disc will be designated L5-S1. There is mild loss of superior vertebral body height T12, of about 30%. There is increased T2 and STIR signal relatively transversely along the superior body of T12, with low T1 signal. The findings are an consistent with acute/subacute compression fracture. This was poorly visualized on the prior study. Vertebral body heights elsewhere are well-maintained. There are multiple areas of increased T1 and T2 signal, most prominent in the body of L2, consistent with hemangiomata. Overall, marrow signal is slightly heterogenous. Overall, there is slightly bright T1 and T2 signal, consistent with fatty changes in the marrow. There is mild ectasia of the lower infrarenal abdominal aorta. The visualized pelvic structures are unremarkable. CONUS MEDULLARIS AND CAUDA EQUINA: Normal, terminating at the level of T12. The cauda equina nerve roots and filum terminale appear normal. 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 SPINAL LEVELS: T12-L1: The disc configuration is normal. The central canal and neural foramina are widely patent. The facet joints are normal. L1-L2: The disc configuration is normal. The central canal and neural foramina are widely patent. The facet joints are normal. L2-L3: The facet joints appear normal. There is a mild diffuse disc bulge small inferior foraminal disc protrusions. There is no definite nerve root impingement. There is no central stenosis. L3-L4: There is mild bilateral facet arthropathy. There is a diffuse disc bulge. There is no foraminal narrowing or central stenosis. L4-L5: There is moderate to severe right and moderate left facet arthropathy with ligamenta flava hypertrophy and facet joint effusions. There is a small central disc protrusion with an annular fissure which mildly distorts the ventral thecal sac. There is no central stenosis. The neural foramina are patent. L5-S1: The disc configuration is normal. The central canal and neural foramina are widely patent. The facet joints are normal. IMPRESSION: 1. As described above are transitional vertebrae at the thoracolumbar and lumbosacral junctions, which should be correlated with plain films before any intervention is undertaken. 2. There is loss of vertebral body height with increased STIR signal in the superior body of T12, consistent with an acute/subacute fracture. 3. There is mild multilevel spondylosis. There is no significant foraminal narrowing or central stenosis.
--- NOTE | 2016-11-24 13:06 | Cons- Neurology ---
General Information and HPI Consulting Request Date of Consult: 11/24/16 Requested By: JADE ALEXANDRE MD History of Present Illness: 86-year-old male admitted with multiple falls and a recent fall resulting in heightened back pain. History is obtained both from the chart and his family who were at the bedside. They describe at least a several month history of gait difficulties for which he has taken to using a walker. At times he may shuffle however there is no reported tremor and the family denies significant cognitive difficulties prior to admission apart from some short-term memory deficits. No complaints of diplopia or urinary incontinence prior to admission however, since admission, he has become confused. It has been difficult to mobilize him due to pain. CT scan of the brain showed small vessel changes without acute abnormalities. 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 Allergies/Medications Allergies: Coded Allergies: lansoprazole (UPSET STOMACH 09/02/15) lovastatin (UPSET STOMACH 09/02/15) rosuvastatin (UPSET STOMACH 09/02/15) alendronate sodium (UPSET STOMACH 09/02/15) esomeprazole (UPSET STOMACH 09/02/15) ezetimibe (UPSET STOMACH 09/02/15) fenofibrate (UPSET STOMACH 09/02/15) Home Med List: Anastrozole 1 MG TABLET 1 TAB PO DAILY CANCER (Reported) Aspirin (Ecotrin*) 81 MG TABLET.DR 1 TAB PO DAILY heart health (Reported) Calcium (Elemental-Fr Calcarb) (Calcium) 600 MG CALCIUM (1,500 MG) TABLET 1 TAB PO TID SUPPLEMENT (Reported) Cholecalciferol (Vitamin D3) 1,000 UNIT TABLET 3 TAB PO DAILY SUPPLEMENT ( Reported) Ginkgo Biloba [place] Extract (Ginkgo Biloba) 30 MG CAPSULE 1 CAP PO DAILY SUPPLEMENT (Reported) Levothyroxine Sodium 75 MCG TABLET 1 TAB PO DAILY AC THYROID (Reported) Metoprolol Tartrate 25 MG TABLET 1 TAB PO BID HTN (Reported) Niacin (Niaspan) 500 MG TAB.ER.24H 2 CAP PO DAILY SUPPLEMENT (Reported) [place]-3 Fatty Acids (Fish Oil Concentrate) 1,000 MG CAPSULE 2 CAP PO DAILY SUPPLEMENT (Reported) Psyllium Hydrophylic Muciloid (Metamucil Packet) 3.4 GRAM POWD.PACK 1 PAC PO DAILY GI (Reported) Ranitidine HCl (Zantac) 150 MG TABLET 1 TAB PO DAILY ACID REFLUX (Reported) Vit C/E/Zn/Coppr/Lutein/Zeaxan (Preservision Areds 2 Softgel) 250-200-40 CAPSULE 1 CAP PO BID EYE (Reported) Vitamin B Complex (Balanced B-100) 1 EACH TABLET 1 TAB PO DAILY VITAMIN SUPPORT (Reported) Review of Systems Review of Systems: Unreliable due to his altered mental status Past History Travel History Traveled to [place] past 21 day No Medical History Blood Transfusion Hx: No Neurological: NONE EENT: NONE Cardiovascular: hypertension, hyperlipidemia, myocardial infarction, NSTEMI Respiratory: NONE Gastrointestinal: GERD Hepatic: NONE Renal: NONE Musculoskeletal: falls, osteoarthritis Psychiatric: NONE Endocrine: NONE Blood Disorders: NONE Cancer(s): breast cancer, prostate cancer PEDIATRIC NP/Reproductive: NONE Surgical History Surgical History: hernia repair-umbilical, masectomy Family History Relations & Conditions If Any: Relation not specified for: *No pertinent family history Psychosocial History Where Do You Live? Home Services at Home: None Smoking Status: Former Smoker ETOH Use: denies use Illicit Drug Use: denies illicit drug use Functional Ability ADLs Independent: dressing, eating, toileting, bathing. Ambulation: independent, cane, walker, non-ambulatory IADLs Independent: shopping, housework, finances, food prep, telephone, transportation , medication admin. Exam & Diagnostic Data Vital Signs and I&O Vital Signs Date Time Temp Pulse Resp B/P B/P Pulse O2 O2 Flow FiO2 Mean Ox Delivery Rate 11/24 1053 Room Air Room Air 11/24 1018 110 130/80 11/24 0616 98.6 107 20 118/66 94 Room Air 11/23 1428 98.1 79 20 120/60 95 11/23 1401 Room Air Room Air Intake & Output 11/24 1600 11/24 0800 11/24 0000 Intake Total 400 380 Output Total Balance 400 380 Intake, IV 400 350 Intake, Oral 0 30 Number 1 Bowel Movements Elderly white male who was awake, alert and confused. He was unable to provide cogent data as to the reason for his admission. He was disoriented to month and could not name the current president. The head was normocephalic. Pupils were equal. Extraocular movements were full. The face was symmetric however somewhat hypomimic. Tongue was midline. The motor examination showed essentially normal tone and bulk throughout. There was no gross focal or lateralizing weakness. There was no resting tremor. Deep tendon reflexes were hypoactive. Plantar responses were flexor. There was no ataxia on finger-to- nose testing. We could not ambulate him due to pain. Assessment/Plan Assessment: #1 hypoactive delirium in the setting of acute hospitalization, medications and advanced age. This may be superimposed upon early cognitive deficits in the way of short-term memory loss. #2 gait disorder with propensity towards falls. At present, his examination is limited by his altered mental status and pain, precluding our ability to watch him ambulate. By history, this may reflect the gait disorder of the elderly, often multifactorial, due to underlying small vessel cerebrovascular disease, DJD, medications, etc. Alternatively, this could represent an early neurodegenerative syndrome with extrapyramidal features. Recommendations: For the present, we would merely recommend judicious use of analgesics so as to not further cloud the sensorium. Physical therapy should be employed in hopes of restoring his baseline ambulatory status. I do not believe that additional pharmacotherapy would improve his situation. We would, however, be happy to reevaluate him once out of the acute care setting. Please feel free to call with any further questions. Consult Acknowledgment - Thank you for your consult request.
[2016-11-24 14:37] VITALS: BP 152/74
--- NOTE | 2016-11-24 17:58 | Cons- Orthopedic ---
General Information and HPI Consulting Request Date of Consult: 11/24/16 Requested By: JADE ALEXANDRE MD Reason for Consult: Back pain, T12 compression fracture History of Present Illness: 86yo M with history of CAD s/p CABG, HTN, prostate CA, and frequent falls presented to [facility] 3 days ago following a fall at home. He complained of back pain and was confused; initial imaging did not show any spinal pathology. An MRI obtained yesterday showed an acute compression fracture of the T12 vertebral body with approximately 30% loss of height. Allergies/Medications Allergies: Coded Allergies: lansoprazole (UPSET STOMACH 09/02/15) lovastatin (UPSET STOMACH 09/02/15) rosuvastatin (UPSET STOMACH 09/02/15) alendronate sodium (UPSET STOMACH 09/02/15) esomeprazole (UPSET STOMACH 09/02/15) ezetimibe (UPSET STOMACH 09/02/15) fenofibrate (UPSET STOMACH 09/02/15) Home Med List: Anastrozole 1 MG TABLET 1 TAB PO DAILY CANCER (Reported) Aspirin (Ecotrin*) 81 MG TABLET.DR 1 TAB PO DAILY heart health (Reported) Calcium (Elemental-Fr Calcarb) (Calcium) 600 MG CALCIUM (1,500 MG) TABLET 1 TAB PO TID SUPPLEMENT (Reported) Cholecalciferol (Vitamin D3) 1,000 UNIT TABLET 3 TAB PO DAILY SUPPLEMENT ( Reported) Ginkgo Biloba [place] Extract (Ginkgo Biloba) 30 MG CAPSULE 1 CAP PO DAILY SUPPLEMENT (Reported) Levothyroxine Sodium 75 MCG TABLET 1 TAB PO DAILY AC THYROID (Reported) Metoprolol Tartrate 25 MG TABLET 1 TAB PO BID HTN (Reported) Niacin (Niaspan) 500 MG TAB.ER.24H 2 CAP PO DAILY SUPPLEMENT (Reported) [place]-3 Fatty Acids (Fish Oil Concentrate) 1,000 MG CAPSULE 2 CAP PO DAILY SUPPLEMENT (Reported) Psyllium Hydrophylic Muciloid (Metamucil Packet) 3.4 GRAM POWD.PACK 1 PAC PO DAILY GI (Reported) Ranitidine HCl (Zantac) 150 MG TABLET 1 TAB PO DAILY ACID REFLUX (Reported) Vit C/E/Zn/Coppr/Lutein/Zeaxan (Preservision Areds 2 Softgel) 250-200-40 CAPSULE 1 CAP PO BID EYE (Reported) Vitamin B Complex (Balanced B-100) 1 EACH TABLET 1 TAB PO DAILY VITAMIN SUPPORT (Reported) Current Medications: Current Medications Sig/Alejo Start time Last Medication Dose Route Stop Time Status Admin Acetaminophen 1,000 MG Q8 11/23 0938 AC 11/24 PO 0727 Acetaminophen 650 MG Q6P PRN 11/21 1645 AC PO Anastrozole 1 MG DAILY 11/22 1000 AC 11/24 PO 1018 Aspirin Buffered 81 MG DAILY 11/22 1000 AC 11/24 PO 1018 Bisacodyl 10 MG ONCE PRN 11/23 1445 DC 11/23 AK 11/23 2045 1909 Bisacodyl 5 MG DAILY 11/23 1435 AC 11/24 PO 1017 Cholecalciferol 1,000 IU DAILY 11/22 1000 AC 11/24 PO 1018 Cyclobenzaprine HCl 5 MG TID 11/22 1210 AC 11/24 PO 1530 Dextrose/Sodium 1,000 ML Q20H 11/21 2000 AC 11/24 Chloride IV 0818 Famotidine 20 MG DAILY 11/22 1000 AC 11/24 PO 1018 Heparin Sodium 5,000 UNIT Q8 11/21 1641 AC 11/24 (Porcine) SC 1420 Levothyroxine Sodium 0.075 MG DAILY AC 11/22 0700 AC 11/24 PO 0727 Lidocaine 1 PAT Q24H 11/21 1645 AC 11/24 EXT 1625 Metoprolol Tartrate 25 MG BID 11/21 2200 AC 11/24 PO 1018 Niacin 500 MG DAILY 11/22 1000 AC 11/24 PO 1018 Oxycodone HCl 2.5 MG Q6P PRN 11/23 0945 AC PO Patient Medication 1 ED .STK-MED ONE 11/24 1417 OR Teaching ED 11/24 1418 Psyllium Hydrophilic 1 PAC DAILY 11/22 1000 AC 11/24 Mucilloid PO 1018 Senna/Docusate Sodium 1 TAB BID PRN 11/21 1800 AC 11/23 PO 1426 Past History Medical History Blood Transfusion Hx: No Neurological: NONE EENT: NONE Cardiovascular: hypertension, hyperlipidemia, myocardial infarction, NSTEMI Respiratory: NONE Gastrointestinal: GERD Hepatic: NONE Renal: NONE Musculoskeletal: falls, osteoarthritis Psychiatric: NONE Endocrine: NONE Blood Disorders: NONE Cancer(s): breast cancer, prostate cancer PUBLIC SAFETY POLICE/Reproductive: NONE Surgical History Pertinent Surgical History: hernia repair-umbilical, masectomy Family History Relations & Conditions If Any: Relation not specified for: *No pertinent family history Psychosocial History Where Do You Live? Home Services at Home: None Smoking Status: Former Smoker ETOH Use: denies use Illicit Drug Use: denies illicit drug use Functional Ability ADLs Independent: dressing, eating, toileting, bathing. Ambulation: independent, cane, walker, non-ambulatory IADLs Independent: shopping, housework, finances, food prep, telephone, transportation , medication admin. Exam & Diagnostic Data Vital Signs and I&O Vital Signs Date Time Temp Pulse Resp B/P B/P Pulse O2 O2 Flow FiO2 Mean Ox Delivery Rate 11/24 1437 97.6 100 20 152/74 91 11/24 1053 Room Air Room Air 11/24 1018 110 130/80 11/24 0616 98.6 107 20 118/66 94 Room Air Intake & Output 11/24 1600 11/24 0800 11/24 0000 11/23 1600 11/23 0800 11/23 0000 Intake Total 700 400 380 400 450 400 Output Total 300 1250 650 Balance 400 400 380 400 -800 -250 Intake, IV 400 400 350 400 400 400 Intake, Oral 300 0 30 50 Number 1 Bowel Movements Output, Urine 300 1250 650 Physical Exam: Patient awake but confused, does not follow commands. Intact EHL/FHL on command, does not move ankles or knees. Tender to palpation over bilateral flanks. Tender to palpation of posterior midline and paraspinal muscles without appreciable step-off. Pain when rolled in bed. Unable to assess sensation due to patient compliance. Feet cool to the touch but with brisk cap refill. Imaging Results: MRI Lumbar Spine 11/23/16: 1. Transitional vertebrae at the thoracolumbar and lumbosacral junctions, which should be correlated with plain films before any intervention is undertaken. 2. There is loss of vertebral body height with increased STIR signal in the superior body of T12, consistent with an acute/subacute fracture. 3. There is mild multilevel spondylosis. There is no significant foraminal narrowing or central stenosis. CT head/neck 11/21/16: 1. No acute intracranial pathology compared to 07/11/2016. 2. No acute fracture or traumatic subluxation in the chronically degenerated cervical spine. 3. Left maxillary sinus secretions with small air-fluid level of the sinus. Correlate for any clinical signs/symptoms of an active left maxillary sinusitis. CT C/A/P 11/21/16: 1. No acute traumatic pathology in the chest, abdomen or pelvis. 2. Cxaeszji-mu-rfuvwi pulmonary emphysema and findings consistent with chronic interstitial lung disease, as well. 3. Atherosclerotic disease of coronary arteries and thoracic aorta without aortic aneurysm. 4. Atherosclerotic infrarenal abdominal aorta measures up to 2.6 cm AP diameter. No abdominal aortic aneurysm or retroperitoneal hematoma. 5. Cholelithiasis without cholecystitis. Assessment/Plan Assessment/Plan 86yo M with history of CAD s/p CABG, HTN, and prostate CA presents with back pain and T12 compression fracture with 30% loss of height; confused at this time and does not participate in examination or appropriately answer questions. 1. Pain control, including lidoderm patches, IV tylenol. Recommend avoidance of narcotics and muscle relaxers given confusion and known side effects of these medications in the geriatric population. 2. Out of bed with PT assistance when able. 3. Upright xrays of the lumbar spine (AP and lateral) when patient is able. May try BERNARD or [place] brace (extension braces) for comfort when patient is able to sit up and/or ambulate. Braces may be obtained from [facility]. Patient may follow up in clinic as an outpatient following discharge from hospital. Please call the clinic to schedule an appointment 10-14 days after discharge. [phone]. Consult Acknowledgment - Thank you for your consult request. Attending MD Review Statement Attending Statement Attending MD Statement: examined this patient, reviewed images
[2016-11-25 06:30] VITALS: BP 118/70
[2016-11-25] MEDS ORDERED: TYLENOL325 M1 PO (09:16)
--- NOTE | 2016-11-25 09:24 | Patient Discharge Instructions ---
Discharge Instructions General Discharge Information You were seen/treated for: Intractable low back pain Special Instructions: -Please follow up with your PCP within 1 week after discharge -Please follow up with Dr. Collins neurologist after discharge for frequant falls and confusion -Please follow up with Dr. Briones urologist within 2 weeks after discharge to change Yanez catheter -Please follow up with Dr. Stack orthopedic doctor to schedule an appointment 10-14 days after discharge. [phone]. -Please wear back brace for comfort when able to sit up and/or ambulate Diet Continue normal diet: No Recommended Diet: Heart Healthy Activity Activity Limited to: Weight bear as tolerated Other activity limits: propensity to fall Acute Coronary Syndrome Inclusion Criteria At DC or during hospital stay patient has or had the following: ACS DIAGNOSIS No Discharge Core Measures Meds if any: Prescribed or Continued at Discharge HIEN/ARB if EF <40% No Beta-Satya No Meds if any: NOT Prescribed or Continued at Discharge Congestive Heart Failure Inclusion Criteria At DC or during hospital stay patient has or had the following: CHF DIAGNOSIS No Discharge Core Measures Meds if any: Prescribed or Continued at Discharge Meds if any: NOT Prescribed or Continued at Discharge Cerebrovascular accident Inclusion Criteria At DC or during hospital stay patient has or had the following: CVA/TIA Diagnosis No Discharge Core Measures Meds if any: Prescribed or Continued at Discharge Meds if any: NOT Prescribed or Continued at Discharge Venous thromboembolism Inclusion Criteria VTE Diagnosis No VTE Type NONE VTE Confirmed by (Test) NONE Discharge Core Measures - Per Current guidelines, there needs to be overlap - treatment for the first 5 days of Warfarin therapy. - If discharged on Warfarin prior to 5 days of - overlap therapy, the patient will need to be - assessed for post discharge needs including - *Post discharge parental anticoagulation - *Warfarin and/or parental anticoagulation education - *Follow up date to check INR post discharge At least 5 days overlap therapy as Inpatient No Meds if any: Prescribed or Continued at Discharge Note: Overlap Therapy is Warfarin and Anticoagulant Meds if any: NOT Prescribed or Continued at Discharge
--- NOTE | 2016-11-25 11:01 | Discharge Summary ---
See Addendum Visit Information Visit Dates Admission Date: 11/21/16 Discharge Date: 11/26/2016 Hospital Course Course Attending Physician: Shreyas Argueta MD Primary Care Physician: ALEX HARRELL,МАРИЯ Ruelas Hospital Course: Patient is 84 year old male with past medical history of CAD, VT, CABG, hypertension, syncopal episodes in the past(over 10 years ago), prostate cancer( 3-4years) and breast cancer (2-3 year), presenting to ED status post fall associated with severe back pain and recurrent falls secondary to back pain. Patient deny any fever, chills, headaches, shortness of breath, chest pain, heart racing, abdominal pain, nausea, vomiting, constipation, diarrhea, dysuria, hematuria. 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 during his course of hospitalization patient was treated for: 1) Delirium: it was recommended to avoid using benzodiazepines and opioid pain medication. 2) Severe back pain, gait disoreder and propensity toward fall Was assessed by neurologist, Dr. Collins. Due to his clinical condition, inability to walk, neurology exam was not complete. After reviewing his images, blood work and in consideration of his multiple risk factors, Dr. Collins suggested that his back pain and gait disorder is multifactorial and secondary to gait disorder of the elderly, often multifactorial, due to underlying small vessel cerebrovascular disease, DJD, medications, etc. Alternatively, this could represent an early neurodegenerative syndrome with extrapyramidal features. In conclusion, pension consultant recommended judicious use of analgesics so as to not further cloud the sensorium and daily physical therapy. Patient would be recommended to follow up with Dr. Collins as an outpatient. Patient was assessed by orthopedic pension consultant for his severe lower back pain and gait disorder. After reviewing images and examining the patient orthopedic surgeon suggested that the severe lower back paiun is most possibly related to DJD and an an acute compression fracture of the T12 vertebral body with approximately 30% loss of height. However, due to his age and multiple co- morbidities patient is not a good candidate for surgery, so that surgeon recommended conservative treatment including non-opioid pain pharmacological pain management and brace for comfort. Patient is to follow up with orthopedic clinic after discharge. 3) Urinary retention patient was placed on bladder catheteriztion protocol. Urology consultation was obtained, recommendation to place Yanez catheter to follow up within 2 weeks after discharge. Complications: delirium urinary retention Allergies: Coded Allergies: lansoprazole (UPSET STOMACH 09/02/15) lovastatin (UPSET STOMACH 09/02/15) rosuvastatin (UPSET STOMACH 09/02/15) alendronate sodium (UPSET STOMACH 09/02/15) esomeprazole (UPSET STOMACH 09/02/15) ezetimibe (UPSET STOMACH 09/02/15) fenofibrate (UPSET STOMACH 09/02/15) Disposition Summary Disposition Principal Diagnosis: Vertebral compression Fx Additional Diagnosis: Delirium Discharge Disposition: SNF Discharge Instructions General Discharge Information Code Status: Full Code Patient's Diet: heart healthy Patient's Activity: as tolerated fall percussion Follow-Up Instructions/Appts: - Please follow up with Dr. LINDSAY HARRELL,ARTI Meng for reevaluation of urinary retention and propensity to fall. -Please follow up with Dr. Stack for reevaluation. Call for appointment in 10- 14 days after discharge. [phone] -Please follow up with your PCP within one week for post hospitalization reevaluation. Medications at Discharge Discharge Medications: Continue taking these medications: Calcium (Elemental-Fr Calcarb) (Calcium) 600 MG CALCIUM (1,500 MG) TABLET 1 Tablet ORAL THREE TIMES DAILY Comments: NOT GIVEN IN HOSPITAL Vitamin B Complex (Balanced B-100) 1 EACH TABLET 1 Tablet ORAL DAILY Vit C/E/Zn/Coppr/Lutein/Zeaxan (Preservision Areds 2 Softgel) 250-200-40 CAPSULE 1 Capsule ORAL TWICE DAILY Comments: NOT GIVEN IN HOSPITAL [place]-3 Fatty Acids (Fish Oil Concentrate) 1,000 MG CAPSULE 2 Capsule ORAL DAILY Comments: NOT GIVEN WHILE IN HOSPITAL Cholecalciferol (Vitamin D3) 1,000 UNIT TABLET 3 Tablet ORAL DAILY Comments: NOT GIVEN WHILE IN HOSPITAL Ginkgo Biloba [place] Extract (Ginkgo Biloba) 30 MG CAPSULE 1 Capsule ORAL DAILY Comments: NOT GIVEN WHILE IN HOSPITAL Ranitidine HCl (Zantac) 150 MG TABLET 1 Tablet ORAL DAILY Comments: NOT GIVEN WHILE IN HOSPITAL Psyllium Hydrophylic Muciloid (Metamucil Packet) 3.4 GRAM POWD.PACK 1 Packet ORAL DAILY Comments: NOT GIVEN WHILE IN HOSPITAL Anastrozole (Anastrozole) 1 MG TABLET 1 Tablet ORAL DAILY Comments: Last Taken: 09/18/16 Time: 10am Niacin (Niaspan) 500 MG TAB.ER.24H 2 Capsule ORAL DAILY Comments: NOT GIVEN WHILE IN HOSPITAL Metoprolol Tartrate (Metoprolol Tartrate) 25 MG TABLET 1 Tablet ORAL TWICE DAILY Comments: Last Taken: 09/18/16 Time: 10am Levothyroxine Sodium (Levothyroxine Sodium) 75 MCG TABLET 1 Tablet ORAL DAILY BEFORE BREAKFAST Comments: Last Taken: 09/18/16 Time: 7am Aspirin (Ecotrin*) 81 MG TABLET.DR 1 Tablet ORAL DAILY Days = 30 Start taking the following new medications: Acetaminophen (Acetaminophen) 500 MG TABLET 1,000 Milligram ORAL EVERY 8 HOURS Qty = 30 No Refills Lidocaine (Lidoderm) 5 % ADH..PATCH 1 Patch ON SKIN Q24H Qty = 15 No Refills Polyethylene Glycol 3350 (Miralax) 17 GRAM POWD.PACK 1 Packet ORAL DAILY Qty = 30 No Refills Instructions: dissolve in water Copies To: ALEX HARRELL,МАРИЯ Phillips MD Review Statement Documenting Attending: YUDY JULIEN MD Other Findings: PATIENT: GABRIEL ARORA PRESENT AGE: 86 PATIENT ACCOUNT NO: [id number] : [birth year] LOCATION: [facility] ORDERING PHYSICIAN: KAREN ARELLANO MD SERVICE DATE: 11/23/16- EXAM TYPE: MRI - MRI-LUMBAR SPINE EXAMINATION: MR LUMBAR SPINE WITHOUT CONTRAST CLINICAL INFORMATION: Severe back pain. Disc degenerative disease, spinal pathology. COMPARISON: CT scan of the chest, abdomen and pelvis 11/23/2016. TECHNIQUE: MRI of the lumbar spine without contrast was obtained using routine sequences. FINDINGS: VERTEBRAL BODIES AND PARASPINAL STRUCTURES: There are transitional vertebrae at the thoracolumbar and lumbosacral junctions. At T12, there are relatively small riblets bilaterally. There is partial sacralization of L5; the lowermost fully formed intervertebral disc will be designated L5-S1. There is mild loss of superior vertebral body height T12, of about 30%. There is increased T2 and STIR signal relatively transversely along the superior body of T12, with low T1 signal. The findings are an consistent with acute/subacute compression fracture. This was poorly visualized on the prior study. Vertebral body heights elsewhere are well-maintained. There are multiple areas of increased T1 and T2 signal, most prominent in the body of L2, consistent with hemangiomata. Overall, marrow signal is slightly heterogenous. Overall, there is slightly bright T1 and T2 signal, consistent with fatty changes in the marrow. There is mild ectasia of the lower infrarenal abdominal aorta. The visualized pelvic structures are unremarkable. CONUS MEDULLARIS AND CAUDA EQUINA: Normal, terminating at the level of T12. The cauda equina nerve roots and filum terminale appear normal. 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 SPINAL LEVELS: T12-L1: The disc configuration is normal. The central canal and neural foramina are widely patent. The facet joints are normal. L1-L2: The disc configuration is normal. The central canal and neural foramina are widely patent. The facet joints are normal. L2-L3: The facet joints appear normal. There is a mild diffuse disc bulge small inferior foraminal disc protrusions. There is no definite nerve root impingement. There is no central stenosis. L3-L4: There is mild bilateral facet arthropathy. There is a diffuse disc bulge. There is no foraminal narrowing or central stenosis. L4-L5: There is moderate to severe right and moderate left facet arthropathy with ligamenta flava hypertrophy and facet joint effusions. There is a small central disc protrusion with an annular fissure which mildly distorts the ventral thecal sac. There is no central stenosis. The neural foramina are patent. L5-S1: The disc configuration is normal. The central canal and neural foramina are widely patent. The facet joints are normal. IMPRESSION: 1. As described above are transitional vertebrae at the thoracolumbar and lumbosacral junctions, which should be correlated with plain films before any intervention is undertaken. 2. There is loss of vertebral body height with increased STIR signal in the superior body of T12, consistent with an acute/subacute fracture. 3. There is mild multilevel spondylosis. There is no significant foraminal narrowing or central stenosis. DICTATED BY: MACK DYE MD DATE/TIME DICTATED:11/24/16739 COLOR RECEIVER:CLYDE DATE/TIME TRANSCRIBED:11/24/16739 CONFIDENTIAL, DO NOT COPY WITHOUT APPROPRIATE AUTHORIZATION. <Electronically signed in Other Vendor System> SIGNED BY: MACK DYE MD 11/24/16 0821 PATIENT: GABRIEL ARORA PRESENT AGE: 86 PATIENT ACCOUNT NO: [id number] : [birth year] LOCATION: [facility] ORDERING PHYSICIAN: LESLY NEVES SERVICE DATE: 11/21/16 EXAM TYPE: CAT - CT CERV SPINE WO IV CONTRAST; CT HEAD WO IV CONTRAST EXAMINATION: CT HEAD W/O IV CONTRAST CT CERVICAL SPINE W/O IV CONTRAST CLINICAL INFORMATION: 86-year-old male status post trauma. Patient fell and struck head. COMPARISON: Head CT from 07/11/2016. Cervical spine CT from 11/01/2011. TECHNIQUE: Head - Contiguous axial imaging of the head was performed from the skull base to the vertex without the administration of intravenous contrast, and axial images are reconstructed at 0.625 mm, 2.5 mm and 5 mm slice thickness. Cervical spine - A volumetric, helical CT acquisition of the cervical spine was obtained without contrast; in addition to the standard set of axial images, multiplanar reformatted images were provided in the coronal and sagittal imaging planes. DLP: 964 mGy-cm (total) FINDINGS: HEAD: No acute intracranial hemorrhage. Again noted is atherosclerotic calcification of the vertebral, basilar and carotid arteries and chronic small vessel ischemic changes of supratentorial white matter. The chatman-white matter differentiation is well preserved. Stable appearance of the extra-axial collection of cerebral spinal fluid attenuation of the right frontoparietal convexity that exhibits chronic, mild mass effect upon the underlying cerebral hemisphere. Chronic atrophy of cerebral and cerebellar hemispheres with symmetric appearance of the ventricles and basilar cisterns. The calvarium is intact and the mastoid air cells and middle ear cavities are clear. There are secretions within the left maxillary sinus which has a small air-fluid level. The lenses have been extracted from the globes. CERVICAL SPINE: There is normal curvature of the cervical spine. The craniocervical junction is intact. The occipital condyles, atlas, axis and atlantoaxial articulation are intact. The vertebral body heights and alignment are maintained. No acute fractures in the anterior or posterior elements. There is no prevertebral soft tissue swelling. There is chronic multilevel degenerative disc disease, facet osteoarthritis and uncovertebral joint hypertrophy. Facet arthropathy and uncovertebral joint hypertrophy produce [id number] right-sided and moderate left-sided foraminal stenosis at C3-C4. Also, there is dhbqocht-[id number] right-sided foraminal stenosis at C4-C5. Mild bilateral foraminal stenosis is observed at C5-C6, C6-C7 and on the left at C7-T1. Chronic pleural-based scarring at lung apices. Thyroid gland is atrophied. There are no fluid collections within the visualized neck. IMPRESSION: 1. No acute intracranial pathology compared to 07/11/2016. 2. No acute fracture or traumatic subluxation in the chronically degenerated cervical spine. 3. Left maxillary sinus secretions with small air-fluid level of the sinus. Correlate for any clinical signs/symptoms of an active left maxillary sinusitis. DICTATED BY: MUNDO ABRAHAM MD DATE/TIME DICTATED:11/21/161320 COLOR RECEIVER:CLYDE DATE/TIME TRANSCRIBED:11/21/161320 CONFIDENTIAL, DO NOT COPY WITHOUT APPROPRIATE AUTHORIZATION. <Electronically signed in Other Vendor System> SIGNED BY: MUNDO ABRAHAM MD 11/21/16 4565
--- NOTE | 2016-11-25 11:06 | PN- Housestaff ---
Subjective Follow-up For: Mechanical fall Low back pain Confusion Subjective: Patient was seen and examined this morning, he is alert oriented 2, reported feeling better. Patient denied chest pain, abdominal pain. Nurses reported turning him around without significant back pain. Reported urinary retention, bladder scan yealed 400 mL this morning. Review of Systems Constitutional: Reports: see HPI. Objective Last 24 Hrs of Vital Signs/I&O Vital Signs Date Time Temp Pulse Resp B/P B/P Pulse O2 O2 Flow FiO2 Mean Ox Delivery Rate 11/25 1100 80 122/80 11/25 0630 97.6 74 20 118/70 95 Room Air 11/24 2046 88 150/80 11/24 1437 97.6 100 20 152/74 91 Intake & Output 11/25 1600 11/25 0800 11/25 0000 Intake Total Output Total 300 Balance -300 Output, Urine 300 Physical Exam General Appearance: Alert, Cooperative, No Acute Distress Skin: No Rashes, No Breakdown, No Significant Lesion Skin Temp/Moisture Exam: Warm/Dry HEENT: Atraumatic, PERRLA, EOMI, Mucous Membr. moist/pink Neck: Supple, No JVD Cardiovascular: Regular Rate, Normal S1, Normal S2, No Murmurs Lungs: Clear to Auscultation, Normal Air Movement Abdomen: Normal Bowel Sounds, Soft, No Tenderness, No Hepatospenomegaly, No Masses Neurological: Normal Speech, Strength at 5/5 X4 Ext, Normal Tone, Sensation Intact, Cranial Nerves 3-12 NL, Reflexes 2+ Extremities: No Clubbing, No Cyanosis, No Edema, Normal Pulses, No Tenderness/ Swelling Assessment/Plan Assessment: Patient is 84 year old male with past medical history of CAD, [place], CABG, hypertension, syncopal episodes in the past(over 10 years ago), prostate cancer( 3-4years) and breast cancer (2-3 year), presenting to ED status post fall associated with severe back pain. CT chest, abdomen, pelvis and head 11/21/16 IMPRESSION: 1. No acute traumatic pathology in the chest, abdomen or pelvis. 2. Rxugnblw-iu-[id number] pulmonary emphysema and findings consistent with chronic interstitial lung disease, as well. 3. Atherosclerotic disease of coronary arteries and thoracic aorta without aortic aneurysm. 4. Atherosclerotic infrarenal abdominal aorta measures up to 2.6 cm AP diameter. No abdominal aortic aneurysm or retroperitoneal hematoma. 5. Cholelithiasis without cholecystitis. MRI 11/23/29 1. As described above are transitional vertebrae at the thoracolumbar and lumbosacral junctions, which should be correlated with plain films before any intervention is undertaken. 2. There is loss of vertebral body height with increased STIR signal in the superior body of T12, consistent with an acute/subacute fracture. 3. There is mild multilevel spondylosis. There is no significant foraminal narrowing or central stenosis. Problem list: -Generalized weakness -Severe intractable back pain -Multiple falls -Confusion -Urinary retention Plan: #Intractable low back pain status post mechanical fall -Optimal pain management: Acetaminophen 1000 mg every 8, lidoderm patch, Tylenol every 4 for mild pain -We'll avoid narcotics, discontinue cyclobenzaprine for side effects of confusion -Physical therapy, recommendation for STR -MRI lumbar spine was obtained yesterday given continuous intractable pain at 3 field acute to subacute T12 fracture -Orthopedic consultation was obtained, recommendation for back brace (BERNARD or [place] brace, extension braces). No surgical intervention is recommended -Recommendation for upright lumbar spine AP and lateral when patient is stable -Bowel regimen to avoid constipation #Confusion and history of multiple falls -Neuro consultation for confusion, multiple falls questionable Parkinson disease , thanks for recommendation -Recommendation to avoid narcotic analgesics or any medication that could alter patient's sensorium -Recommendation for outpatient reevaluation #Urinary retention -Patient has history of prostate cancer status post radiotherapy -For the last 2 nights patient notes to have urine retention, this morning BladderScan yield 400 mL -We'll obtain neuro consultation Diet Heart healthy diet- mechanical soft and nectar fluid Code full DVT prophylaxis heparin subcutaneous Problem List: 1. Intractable back pain Pain Ratin Pain Location: Low back pain Pain Goal: Pain 4 or less Pain Plan: Tylenol 1000 mg every 8 Tomorrow's Labs & Rationales: BMP
--- NOTE | 2016-11-25 11:13 | PN- Att Addend ---
See Addendum Attending Addendum Attending Brief Note Patient seen and examined, still remains somewhat confused. is concerned. By mouth intake remains poor. Patient was seen by orthopedic yesterday and they recommended conservative treatment. Patient's Flexeril was held. He has not required any oxycodone. This am his blood sugar was reported to be 635 and hyponatremia. This was likely a false reading because his Accu-Chek was in 160s. Patient was getting D5 half and this and this all could be related to blood draw from the IV line that was receiving IV fluids. Pain mx with tylenol and lidoderm patch. Vital Signs Date Time Temp Pulse Resp B/P B/P Pulse O2 O2 Flow FiO2 Mean Ox Delivery Rate 11/25 1100 80 122/80 11/25 0630 97.6 74 20 118/70 95 Room Air 11/24 2046 88 150/80 11/24 1437 97.6 100 20 152/74 91 on exam; awake, nad, remains somewhat confused. cv; s1,s2, rrr resp; clear abd; soft, nt, bs+ ext; no edema. Laboratory Tests 11/25 0650 Chemistry Sodium (137 - 145 mmol/L) 122 L Potassium (3.5 - 5.1 mmol/L) 3.6 Chloride (98 - 107 mmol/L) 94 L Carbon Dioxide (22 - 30 mmol/L) 20 L Anion Gap (5 - 16) 8 BUN (9 - 20 mg/dL) 16 Creatinine (0.7 - 1.2 mg/dL) 0.7 Estimated GFR (>60 ml/min) > 60 BUN/Creatinine Ratio (7 - 25 %) 22.9 Glucose (65 - 99 mg/dL) 635 *H A/P: 86 M with pmh sig for CAD, [place], CABG, hypertension, syncopal episodes in the past(over 10 years ago), prostate cancer and breast cancer admitted with a fall as well as intractable low back pain. Lumbar spine MRI shows possibility off acute/subacute fracture at T12 and transitional vertebrae at the thoracolumbar and lumbosacral junctions. Patient was seen by orthopedic yesterday and they recommended conservative treatment. Patient's Flexeril was held. He has not required any oxycodone. Pain mx with tylenol and lidoderm patch. As mentioned above, blood sugar was likely spuriously high on the blood work from this morning. Accu-Chek was done and the blood sugar was and 160s. Please check with lab if this blood sugar results were repeatedly checked or not for confirmation. We'll plan to repeat his blood work later this afternoon. His IV fluids will be stopped and patient will be put on moderate fluid restriction at 100 mL for now. By mouth intake is still poor, encouraged him to take by mouth. Patient is having some difficulty with urination and history chronic straight cath protocol. He doesn't history of prostate cancer in the past. We will obtain a urology consult. DVT px; Hep sq. Not medically stable for DC yet. D/w patient's at bedside.
[2016-11-25 13:51] VITALS: BP 144/80
[2016-11-25 22:26] VITALS: BP 160/80
--- NOTE | 2016-11-26 07:45 | PN- Housestaff ---
See Addendum Subjective Follow-up For: Mechanical fall Low back pain Confusion Subjective: Patient was seen and examined this morning, continue to have urinary retention, bladder scan yielded 400 mL. Patient denied any abdominal pain. Vital signs are stable, afebrile. I contacted Dr. Briones, recommendation to place Yanez catheter and discharge the patient, to follow up with him in office in 2 weeks. Review of Systems Constitutional: Reports: see HPI. Objective Last 24 Hrs of Vital Signs/I&O Vital Signs Date Time Temp Pulse Resp B/P B/P Pulse O2 O2 Flow FiO2 Mean Ox Delivery Rate 11/26 1005 96 140/90 11/26 0753 97.9 97 20 132/80 92 Room Air 11/25 2226 97.5 89 18 160/80 94 Room Air 11/25 2204 85 150/80 11/25 1351 97.9 101 20 144/80 93 Room Air Intake & Output 11/26 1600 11/26 0800 11/26 0000 Intake Total 480 Output Total 400 300 Balance -400 180 Intake, Oral 480 Output, Urine 400 300 Physical Exam General Appearance: Alert, Cooperative, No Acute Distress Skin: No Rashes, No Breakdown, No Significant Lesion Skin Temp/Moisture Exam: Warm/Dry Neck: Supple, No JVD Cardiovascular: Regular Rate, Normal S1, Normal S2, No Murmurs Lungs: Clear to Auscultation, Normal Air Movement Abdomen: Normal Bowel Sounds, Soft, No Tenderness, No Hepatospenomegaly, No Masses Neurological: Normal Speech, Strength at 5/5 X4 Ext, Normal Tone, Sensation Intact, Cranial Nerves 3-12 NL, Reflexes 2+ Extremities: No Clubbing, No Cyanosis, No Edema, Normal Pulses, No Tenderness/ Swelling Assessment/Plan Assessment: Patient is 84 year old male with past medical history of CAD, [place], CABG, hypertension, syncopal episodes in the past(over 10 years ago), prostate cancer( 3-4years) and breast cancer (2-3 year), presenting to ED status post fall associated with severe back pain. CT chest, abdomen, pelvis and head 11/21/16 IMPRESSION: 1. No acute traumatic pathology in the chest, abdomen or pelvis. 2. Zdarssmf-rn-oimjmc pulmonary emphysema and findings consistent with chronic interstitial lung disease, as well. 3. Atherosclerotic disease of coronary arteries and thoracic aorta without aortic aneurysm. 4. Atherosclerotic infrarenal abdominal aorta measures up to 2.6 cm AP diameter. No abdominal aortic aneurysm or retroperitoneal hematoma. 5. Cholelithiasis without cholecystitis. MRI 11/23/29 1. As described above are transitional vertebrae at the thoracolumbar and lumbosacral junctions, which should be correlated with plain films before any intervention is undertaken. 2. There is loss of vertebral body height with increased STIR signal in the superior body of T12, consistent with an acute/subacute fracture. 3. There is mild multilevel spondylosis. There is no significant foraminal narrowing or central stenosis. Problem list: -Generalized weakness -Severe intractable back pain -Multiple falls -Confusion -Urinary retention Plan: #Intractable low back pain status post mechanical fall -Optimal pain management: Acetaminophen 1000 mg every 8, lidoderm patch, Tylenol every 4 for mild pain -We'll avoid narcotics, discontinue cyclobenzaprine for side effects of confusion -Physical therapy, recommendation for STR -MRI lumbar spine was obtained yesterday given continuous intractable pain at 3 field acute to subacute T12 fracture -Orthopedic consultation was obtained, recommendation for back brace (BERNARD or [place] brace, extension braces). No surgical intervention is recommended -Recommendation for upright lumbar spine AP and lateral when patient is stable -Bowel regimen to avoid constipation #Confusion and history of multiple falls -Neuro consultation for confusion, multiple falls questionable Parkinson disease , thanks for recommendation -Recommendation to avoid narcotic analgesics or any medication that could alter patient's sensorium -Recommendation for outpatient reevaluation #Urinary retention -Patient has history of prostate cancer status post radiotherapy -We'll place Yanez catheter, to be discharged with Yanez catheter and follow up with Dr. Briones as an outpatient in 2 weeks Diet Heart healthy diet- mechanical soft and nectar fluid Code full DVT prophylaxis heparin subcutaneous Problem List: 1. Intractable back pain Pain Ratin Pain Location: Low back pain Pain Goal: Pain 4 or less Pain Plan: Moderate pain pathway Tomorrow's Labs & Rationales: None
[2016-11-26 07:53] VITALS: BP 132/80
[2016-11-26] MEDS ORDERED: ACETAMINOPHEN500 M4 PO (11:20)
[2016-11-26] MEDS ORDERED: LIDODERM1 EACH EXT (11:20)
[2016-11-26] MEDS ORDERED: MIRALAX17 G1 PO ×2 (11:20→11:52)
[2016-11-26 13:00] VITALS: BP 140/90
== END 2016-11-26 14:06 | DRG 552 ==
LOC: ERH 11:54 → ERHI 15:21 → 2NA 15:21 → ENRESERV 16:37 → 2NA 17:35 → ENPENDDIS 11-26 11:54 → 2NA 11-26 14:06
PROVIDERS: Internal Medicine Hematology & Oncology; Physician Assistant Medical; ADMIT Internal Medicine
DX: S22.089A Unspecified fracture of T11-T12 vertebra, initial encounter for closed fracture (principal); I25.810 Atherosclerosis of coronary artery bypass graft(s) without angina pectoris; Z95.1 Presence of aortocoronary bypass graft; M54.5 Low back pain; W18.30XA Fall on same level, unspecified, initial encounter; Z91.81 History of falling; Y92.009 Unspecified place in unspecified non-institutional (private) residence as the place of occurrence of the external cause; R41.0 Disorientation, unspecified; R33.9 Retention of urine, unspecified; I10 Essential (primary) hypertension; Z85.46 Personal history of malignant neoplasm of prostate; Z85.3 Personal history of malignant neoplasm of breast; I25.2 Old myocardial infarction; K21.9 Gastro-esophageal reflux disease without esophagitis
CPT/HCPCS: 2NASP; 72148; 36415; 74176; 81001; 82436; 87086; 93005; 93010; 96374; 97112-GO; 97162-GP; 97530-GO; J1644; J1885; J7042

== ENCOUNTER 2016-12-19 15:43 | Observation (INO) | payer OTHER, MEDICARE ==
[~2016-12-19 15:43] MED LIST changes: +ACETAMINOPHEN500 M4 PO; +ASPIRIN EC81 M1 PO; +LIDODERM1 EACH EXT; +MIRALAX17 G1 PO; +TYLENOL325 M1 PO
--- NOTE | 2016-12-19 15:51 | ED GI/GU/ABDOMINAL COMPLAINT ---
History of Present Illness General Chief Complaint: General Adult Stated Complaint: BIBA FOR ?GI BLEED Source: patient, family, old records Exam Limitations: dementia Allergies Coded Allergies: lansoprazole (UPSET STOMACH 09/02/15) lovastatin (UPSET STOMACH 09/02/15) rosuvastatin (UPSET STOMACH 09/02/15) alendronate sodium (UPSET STOMACH 09/02/15) esomeprazole (UPSET STOMACH 09/02/15) ezetimibe (UPSET STOMACH 09/02/15) fenofibrate (UPSET STOMACH 09/02/15) Reconcile Medications Acetaminophen 500 MG TABLET 1,000 MG PO Q8 LOW BACK PAIN Anastrozole 1 MG TABLET 1 TAB PO DAILY CANCER (Reported) Aspirin (Ecotrin*) 81 MG TABLET.DR 1 TAB PO DAILY heart health (Reported) Calcium (Elemental-Fr Calcarb) (Calcium) 600 MG CALCIUM (1,500 MG) TABLET 1 TAB PO TID SUPPLEMENT (Reported) Cholecalciferol (Vitamin D3) 1,000 UNIT TABLET 3 TAB PO DAILY SUPPLEMENT ( Reported) Ginkgo Biloba [place] Extract (Ginkgo Biloba) 30 MG CAPSULE 1 CAP PO DAILY SUPPLEMENT (Reported) Levothyroxine Sodium 75 MCG TABLET 1 TAB PO DAILY AC THYROID (Reported) Lidocaine (Lidoderm) 5 % ADH..PATCH 1 PAT EXT Q24H LOW BACK PAIN Metoprolol Tartrate 25 MG TABLET 1 TAB PO BID HTN (Reported) Niacin (Niaspan) 500 MG TAB.ER.24H 2 CAP PO DAILY SUPPLEMENT (Reported) [place]-3 Fatty Acids (Fish Oil Concentrate) 1,000 MG CAPSULE 2 CAP PO DAILY SUPPLEMENT (Reported) Polyethylene Glycol 3350 (Miralax) 17 GRAM POWD.PACK 1 PAC PO DAILY PRN constipation dissolve in water Psyllium Hydrophylic Muciloid (Metamucil Packet) 3.4 GRAM POWD.PACK 1 PAC PO DAILY GI (Reported) Ranitidine HCl (Zantac) 150 MG TABLET 1 TAB PO DAILY ACID REFLUX (Reported) Vit C/E/Zn/Coppr/Lutein/Zeaxan (Preservision Areds 2 Softgel) 250-200-40 CAPSULE 1 CAP PO BID EYE (Reported) Vitamin B Complex (Balanced B-100) 1 EACH TABLET 1 TAB PO DAILY VITAMIN SUPPORT (Reported) Triage Nurses Notes Reviewed? yes Onset: Abrupt Duration: unknown duration Timing: single episode today Location: unknown No Modifying Factors: none HPI: 86-year-old male brought into emergency room for nursing facility for further evaluation of bleeding from his rectal region. Patient was found to have some bloody stool and blood around his rectal region this morning. He has a history of dementia. Family denies any prior history of this in the past. Patient denies any abdominal pain. History is somewhat limited secondary to the patient 's dementia but he offers no complaints at this time. (LESLY LYLE) Vital Signs & Intake/Output Vital Signs & Intake/Output Vital Signs Date Time Temp Pulse Resp B/P B/P Pulse O2 O2 Flow FiO2 Mean Ox Delivery Rate 12/19 2117 100 18 158/75 97 Room Air 12/19 1904 98.0 92 20 137/82 97 Room Air 12/19 1806 97.8 90 18 139/71 96 Room Air 12/19 1544 97.3 105 18 177/79 97 Room Air Past History Travel History Traveled to [place] past 21 day No Medical History Any Pertinent Medical History? see below for history Neurological: NONE EENT: NONE Cardiovascular: hypertension, hyperlipidemia, myocardial infarction, NSTEMI Respiratory: NONE Gastrointestinal: GERD Hepatic: NONE Renal: NONE Musculoskeletal: falls, osteoarthritis Psychiatric: NONE Endocrine: NONE Blood Disorders: NONE Cancer(s): breast cancer, prostate cancer [employer]ARDWARE ENGINEER/Reproductive: NONE History of MRSA: No History of VRE: No History of CDIFF: No Tetanus Vaccine: 11/01/11 Surgical History Surgical History: hernia repair-umbilical, masectomy Psychosocial History Who do you live with Family Services at Home None What is your primary language Malagasy Family History Family History, If Any: Relation not specified for: *No pertinent family history Hx Contributory? No (LESLY LYLE) Review of Systems Review of Systems Constitutional: Reports: no symptoms. EENTM: Reports: no symptoms. Respiratory: Reports: no symptoms. Cardiovascular: Reports: no symptoms. GI: Reports: see HPI. Genitourinary: Reports: no symptoms. Musculoskeletal: Reports: no symptoms. Skin: Reports: no symptoms. Neurological/Psychological: Reports: no symptoms. Hematologic/Endocrine: Reports: see HPI. Immunologic/Allergic: Reports: no symptoms. All Other Systems: Reviewed and Negative (LESLY LYLE) Physical Exam Physical Exam General Appearance: well developed/nourished, no apparent distress, alert Head: atraumatic, normal appearance Eyes: Bilateral: normal appearance. Ears, Nose, Throat, Mouth: hearing grossly normal, moist mucous membrane Neck: normal inspection Respiratory: normal breath sounds, no respiratory distress Cardiovascular: regular rate/rhythm Gastrointestinal: soft, non-tender, small amount of brusing to right abdomen Rectal: gross bright red blood Back: normal range of motion Extremities: normal range of motion Neurologic/Psych: awake, alert, oriented x 3, normal gait Skin: intact, normal color (WILLIAM NEVES,LESLY) Core Measures ACS in differential dx? No Severe Sepsis Present: No Septic Shock Present: No (ALICIA HARRELL,SUKHWINDER) Progress Differential Diagnosis: colon cancer, diverticulitis, Hemorrhoid, anal fissure, angiodysplasia,, proctitis, Diagnostic Imaging: Viewed by Me: CT Scan. Discussed w/RAD: CT Scan. Radiology Impression: PATIENT: GABRIEL ARORA PRESENT AGE: 86 PATIENT ACCOUNT NO: [id number] : [birth year] LOCATION: [facility] ORDERING PHYSICIAN: LESLY NEVES SERVICE DATE: 12/19/16 EXAM TYPE : CAT - CT ABD & PELVIS W/O IV CONTRAS EXAMINATION: CT ABDOMEN AND PELVIS WITHOUT CONTRAST CLINICAL INFORMATION: Rectal bleeding. COMPARISON: Baseline including 11/21/2016 TECHNIQUE: Multidetector volumetric imaging was performed from the superior aspect of the liver through the pubic symphysis. Sagittal and coronal reformatted images were obtained on the technologist's workstation. DLP: 268 mGy-cm FINDINGS: LUNG BASES: Notable fibrosis at both lung bases. LIVER, GALLBLADDER, AND BILIARY TREE: Liver is normal follow-up without any gross lesion on this nonenhanced study. Attenuation is borderline increased to 65 Hounsfield units. Sludge and tiny gallstones noted without acute inflammatory changes. PANCREAS: Unremarkable. SPLEEN: Unremarkable. ADRENAL GLANDS: Unremarkable. KIDNEYS AND URETERS: The kidneys are normal in size, shape, and attenuation. No hydronephrosis, hydroureter, or calculi seen. No perinephric stranding. BLADDER: Unremarkable. GASTROINTESTINAL TRACT: No obstruction. Moderate amount of stool retention. There is subtle segmental thickening of the rectum which should be correlated with digital rectal exam. ABDOMINAL WALL: No significant hernia is appreciated. LYMPH NODES: Normal. VASCULAR: Unremarkable. PELVIC VISCERA: Unremarkable. OSSEOUS STRUCTURES: There is a new compression fracture involving T12 of moderate severity. IMPRESSION: Limited nonenhanced study. 1. Question of circumferential subtle thickening of the rectum. Correlate with digital rectal exam. 2. New compression fracture T12 of moderate severity. This appears acute. 3. Gallstones without acute inflammatory changes. 4. Changes of early heavy metal deposition throughout the liver. Statistically this is likely hemachromatosis. DICTATED BY: FABI DE LEON MD DATE/TIME DICTATED:12/19/162003 DENTAL APPLIANCE FIXER:CLYDE DATE/TIME TRANSCRIBED:12/19/162003 CONFIDENTIAL, DO NOT COPY WITHOUT APPROPRIATE AUTHORIZATION. <Electronically signed in Other Vendor System> SIGNED BY: FABI DE LEON MD 12/19/162016 Initial ED EKG: normal intervals, normal p-waves, normal sinus rhythm, rate (95) , left anterior fascicular hydraulic blocker-Off Endorsed To: SUKHWINDER VARGAS MD Endorsed Time: 2055 Comments: patient signout to Dr. VARGAS been placed in ED observation for repeat H&H and further observation. (LESLY LYLE) Plan of Care: Orders Procedure Date/time Status Discharge Patient 12/19 2300 Active CBC WITHOUT DIFFERENTIAL 12/19 2299 Complete Intake & Output 12/19 2253 Active OXYGEN SETUP (GEN) 12/19 2021 Active Saline Lock 12/19 2021 Active Activity/Ambulation 12/19 2021 Active Code Status 12/[address] in observation 12/20 2007 Active Patient Data 12/20 2007 Active Vital Signs 12/19 1737 Active TROPONIN LEVEL 12/19 1549 Complete PARTIAL THROMBOPLASTIN TIME 12/19 1549 Complete PROTHROMBIN TIME 12/19 1549 Complete COMPREHENSIVE METABOLIC PANEL 12/19 155 Complete CBC WITHOUT DIFFERENTIAL 12/19 155 Complete EKG 12/19 155 Active TYPE & SCREEN (NOT X-MATCH) 12/19 155 Complete Laboratory Tests 12/19/163: CBC w Diff NO MAN DIFF REQ, RBC 4.15 L, MCV 95.6 H, MCH 32.2 H, RDW 13.6, MPV 7.2 L, Gran % 82.3 H, Lymphocytes % 7.5 L, Monocytes % 8.4, Eosinophils % 1.7 , Basophils % 0.1, Absolute Granulocytes 6.0, Absolute Lymphocytes 0.5 L, Absolute Monocytes 0.6, Absolute Eosinophils 0.1, Absolute Basophils 0, PUBS MCHC 33.7 12/19/16 1600: Anion Gap 11, Estimated GFR > 60, BUN/Creatinine Ratio 30.0 H, Glucose 134 H, Calcium 10.0, Total Bilirubin 0.8, AST 61 H, ALT 71, Alkaline Phosphatase 210 H, Troponin I 0.02, Total Protein 7.2, Albumin 3.7, Globulin 3.5, Albumin/ Globulin Ratio 1.1, PT 12.5, INR 1.19 H, APTT 29, CBC w Diff NO MAN DIFF REQ, RBC 4.53 L, MCV 96.6 H, MCH 32.1 H, RDW 14.2, MPV 7.5, Gran % 86.7 H, Lymphocytes % 5.7 L, Monocytes % 6.3, Eosinophils % 1.3, Basophils % 0 L, Absolute Granulocytes 8.0 H, Absolute Lymphocytes 0.5 L, Absolute Monocytes 0.6, Absolute Eosinophils 0.1, Absolute Basophils 0, PUBS MCHC 33.2 Departure Departure Condition: Stable Clinical Impression Primary Impression: Lower GI bleed Referrals: PATIENT HAS NO PRIMARY CARE DR (PCP) Departure Forms: Customer Survey General Discharge Information (LELSY LYLE) PA/FURNACE FITTER Co-Sign Statement Statement: ED Attending supervision documentation- [x] I saw and evaluated the patient. I have also reviewed all the pertinent lab results and diagnostic results. I agree with the findings and the plan of care as documented in the PA's/FURNACE FITTER's documentation. [] I have reviewed the ED Record and agree with the PA's/FURNACE FITTER's documentation. [] Additions or exceptions (if any) to the PAs/FURNACE FITTER's note and plan are summarized below: [] (LENA HARRELL,HAYLEE White) Departure Time of Disposition: 2258 Disposition: ACUTE REHAB FACILITY PA/FURNACE FITTER Co-Sign Statement Statement: ED Attending supervision documentation- [] I saw and evaluated the patient. I have also reviewed all the pertinent lab results and diagnostic results. I agree with the findings and the plan of care as documented in the PA's/FURNACE FITTER's documentation. [] I have reviewed the ED Record and agree with the PA's/FURNACE FITTER's documentation. [] Additions or exceptions (if any) to the PAs/FURNACE FITTER's note and plan are summarized below: [] (SUKHWINDER VARGAS MD) ED Observation Documentation Condition Stable (LESLY LYLE) Spoke with LAILA YEAGER MD. Physician Advisor Notified LAILA YEAGER MD. Place patient in ED Observation Primary Impression (Diagnosis) LGI bleed Disposition ACUTE REHAB FACILITY Rational for Observation My rational for observation is as follows repeat labs, clinical status. (SUKHWINDER VARGAS MD) ED Attending Observation Initial Observation Note: I have seen and personally examined GABRIEL ARORA on 12/19/16 at 1909. I agree with the current emergency department documentation. The disposition (admission or discharge) is uncertain at this time, he needs a period of observation for the following reason(s): The ED Nurse caring for this patient has been personally informed as to what the patient is being observed for. Observation Re-Evaluation: I have reevaluated GABRIEL ARORA on 12/19/16 at 1909. The physical findings that support the continued need to observe this patient include . (LESLY LYLE) Observation Discharge: I have reevaluated GABRIEL ARORA on 12/19/16 at 2259. The patient is: (x): Stable for discharge (): To be admitted to Nursing Floor (): To be placed in Observation on Nursing Floor (x): For transfer to other facility The patient was being observed for GI bleeding As a result of that observation, I have determined it is safe for patient to return to [facility]. (SUKHWINDER VARGAS MD) The patient is: (x): Stable for discharge (): To be admitted to Nursing Floor (): To be placed in Observation on Nursing Floor (x): For transfer to other facility The patient was being observed for GI bleeding As a result of that observation, I have determined it is safe for patient to return to [facility]. (SUKHWINDER VARGAS MD)
--- NOTE | 2016-12-19 16:23 | NUR ---
TO ER FROM ECF , 86 YR MALE W/ EPISODES OF LOWER GI BLEED PATIENT ALERT, SKIN PALE , COOL DRY RESPONDS TO DIRECTIONS DENIES ANY DISCOMFORT HAS RESTRICTED ARM BAND RIGHT ARM S/P BREAST CA VS STABLE SOA BY ER PA EKG PREFORMED IV MED LOCK EST B/W SENT
[2016-12-19 16:32] LABS: ABSOLUTE BASOPHIL COUNT 0 /CUMM (0.0-0.2); ABSOLUTE EOSINOPHIL COUNT 0.1 /CUMM (0.0-0.7); ABSOLUTE LYMPH COUNT 0.5 /CUMM (1.2-3.4); ABSOLUTE MONOCYTE COUNT 0.6 /CUMM (0.10-0.60); BASOPHIL % 0 % (0.0-2.0); EOSINOPHIL % 1.3 % (0-5); GRANULOCYTE % 86.7 % (42.2-75.2); HEMATOCRIT 43.7 % (42-52); MEAN CORPUSCULAR HGB 32.1 PG (27.0-31.0); MEAN CORPUSCULAR HGB CONC 33.2 G/DL (33.0-37.0); MEAN CORPUSCULAR VOLUME 96.6 FL (80.0-94.0); MEAN PLATELET VOLUME 7.5 FL (7.4-10.4); PLATELET COUNT 242 /CUMM (130-400); RBC DISTRIBUTION WIDTH 14.2 % (11.5-14.5); RED BLOOD CELL CT 4.53 /CUMM (4.70-6.10); WHITE BLOOD CELL COUNT 9.2 /CUMM (4.8-10.8)
[2016-12-19 16:40] LABS: PT 12.5 SEC (9.4-12.5); PTT 29 SEC (25-37)
--- NOTE | 2016-12-19 16:45 | NUR ---
LAB CALLED AND NEEDS A REDRAW OF THE PINK TOP. MST NOTIFIED.
--- NOTE | 2016-12-19 18:23 | NUR ---
PATIENT REMAINS ALERT, OFFERS NO COMPLAINTS SKIN PALE, WARM DRY PATIENT TO BE KEPT OBSERVATION TO HAVE REPEAT CBC AT 2300 SPOUSE REQUEST CALL W/ PATIENTS RESULTS PLAN MS. ARORA [phone]
--- NOTE | 2016-12-19 18:23 | NUR ---
ABO DRAWN AND SENT TO LAB.
--- NOTE | 2016-12-19 19:04 | NUR ---
NAD CONDITION UNCHANGED
--- NOTE | 2016-12-19 19:14 | NUR ---
THIS RN ASSUMED CARE OF PT PER KIMI STACY. PT RESTING IN RM WITH RR, FAMILY AT BEDSIDE. EDINSON GRACE IN TO DISCUSS PERFORMING CT SCAN ON PT. WILL CONTINUE TO MONITOR
--- NOTE | 2016-12-19 19:53 | NUR ---
PT TO AND FROM CT SCAN VIA STRETCHER
--- NOTE | 2016-12-19 20:17 | CT SCAN REPORT ---
EXAMINATION: CT ABDOMEN AND PELVIS WITHOUT CONTRAST CLINICAL INFORMATION: Rectal bleeding. COMPARISON: Baseline including 11/21/2016 TECHNIQUE: Multidetector volumetric imaging was performed from the superior aspect of the liver through the pubic symphysis. Sagittal and coronal reformatted images were obtained on the technologist's workstation. DLP: 268 mGy-cm FINDINGS: LUNG BASES: Notable fibrosis at both lung bases. LIVER, GALLBLADDER, AND BILIARY TREE: Liver is normal follow-up without any gross lesion on this nonenhanced study. Attenuation is borderline increased to 65 Hounsfield units. Sludge and tiny gallstones noted without acute inflammatory changes. PANCREAS: Unremarkable. SPLEEN: Unremarkable. ADRENAL GLANDS: Unremarkable. KIDNEYS AND URETERS: The kidneys are normal in size, shape, and attenuation. No hydronephrosis, hydroureter, or calculi seen. No perinephric stranding. BLADDER: Unremarkable. GASTROINTESTINAL TRACT: No obstruction. Moderate amount of stool retention. There is subtle segmental thickening of the rectum which should be correlated with digital rectal exam. ABDOMINAL WALL: No significant hernia is appreciated. LYMPH NODES: Normal. VASCULAR: Unremarkable. PELVIC VISCERA: Unremarkable. OSSEOUS STRUCTURES: There is a new compression fracture involving T12 of moderate severity. IMPRESSION: Limited nonenhanced study. 1. Question of circumferential subtle thickening of the rectum. Correlate with digital rectal exam. 2. New compression fracture T12 of moderate severity. This appears acute. 3. Gallstones without acute inflammatory changes. 4. Changes of early heavy metal deposition throughout the liver. Statistically this is likely hemachromatosis.
--- NOTE | 2016-12-19 20:18 | NUR ---
PT CLEANED, CHANGED, AND REPOSITIONED ON STRETCHER, TV ON FOR COMFORT, CALL PAREDES WITHIN REACH, WILL CONTINUE TO MONITOR
[2016-12-19 21:17] VITALS: BP 158/75
--- NOTE | 2016-12-19 22:25 | NUR ---
REPEAT CBC SENT TO LAB
[2016-12-19 22:32] LABS: ABSOLUTE BASOPHIL COUNT 0 /CUMM (0.0-0.2); ABSOLUTE EOSINOPHIL COUNT 0.1 /CUMM (0.0-0.7); ABSOLUTE LYMPH COUNT 0.5 /CUMM (1.2-3.4); ABSOLUTE MONOCYTE COUNT 0.6 /CUMM (0.10-0.60); BASOPHIL % 0.1 % (0.0-2.0); EOSINOPHIL % 1.7 % (0-5); GRANULOCYTE % 82.3 % (42.2-75.2); HEMATOCRIT 39.6 % (42-52); MEAN CORPUSCULAR HGB 32.2 PG (27.0-31.0); MEAN CORPUSCULAR HGB CONC 33.7 G/DL (33.0-37.0); MEAN CORPUSCULAR VOLUME 95.6 FL (80.0-94.0); MEAN PLATELET VOLUME 7.2 FL (7.4-10.4); PLATELET COUNT 219 /CUMM (130-400); RBC DISTRIBUTION WIDTH 13.6 % (11.5-14.5); RED BLOOD CELL CT 4.15 /CUMM (4.70-6.10); WHITE BLOOD CELL COUNT 7.3 /CUMM (4.8-10.8)
--- NOTE | 2016-12-19 22:54 | NUR ---
THIS RN AND MST CONCHIS ASSISTED PT FROM LYING TO SITTING, PT DENIES FEELING DIZZY. DR VARGAS IN FOR POC
--- NOTE | 2016-12-19 22:59 | NUR ---
THIS RN CALLED REPORT TO KIMI PALOMINO AT [facility]. THIS RN WILL SEND COPIES OF LABS AND CT SCAN WITH [facility] ON TRANSFER TO RN AT [facility]
--- NOTE | 2016-12-19 23:05 | NUR ---
PT MEDICATED WITH 975 TYLENOL PO PER EMAR.
--- NOTE | 2016-12-19 23:07 | NUR ---
[facility] BOOKED AT THIS TIME.
--- NOTE | 2016-12-19 23:42 | NUR ---
[facility] HERE FOR TRANPORT BACK TO [facility].
== END 2016-12-19 23:44 ==
LOC: ERH 15:43 → ERHI 20:08 → ENRESERV 20:59 → ERHI 23:44
PROVIDERS: Physician Assistant Medical; ADMIT Emergency Medicine
DX: K92.2 Gastrointestinal hemorrhage, unspecified (principal); M19.90 Unspecified osteoarthritis, unspecified site; I25.2 Old myocardial infarction; K21.9 Gastro-esophageal reflux disease without esophagitis; Z85.46 Personal history of malignant neoplasm of prostate; I10 Essential (primary) hypertension; E78.5 Hyperlipidemia, unspecified; F03.90 Unspecified dementia, unspecified severity, without behavioral disturbance, psychotic disturbance, mood disturbance, and anxiety
CPT/HCPCS: 74176; 93005; 93010; G0378

== ENCOUNTER 2017-12-25 17:03 | Emergency (ER) | payer OTHER, MEDICARE ==
[~2017-12-25] VITALS: Ht 170.2 cm; Wt 65.8 kg
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
[2017-12-25] MEDS ORDERED: TRAMADOL HCL50 M1 PO (18:05)
[2017-12-25] MEDS ORDERED: NARCAN4 MG NAS (18:06)
[2017-12-25] MEDS ORDERED: LEVOTHYROXINE125 MCG PO (18:08)
[2017-12-25] MEDS ORDERED: MIRALAX17 G1 PO (18:09)
[2017-12-25] MEDS ORDERED: SENNA8.6 M3 PO (18:09)
[2017-12-25 18:10] VITALS: BP 166/88
== END 2017-12-25 18:41 ==
LOC: ERH 17:03 → CANBEDREQ 17:21 → ERH 17:28
DX: S01.01XA Laceration without foreign body of scalp, initial encounter (principal); W05.0XXA Fall from non-moving wheelchair, initial encounter; Y92.129 Unspecified place in nursing home as the place of occurrence of the external cause; Y93.89 Activity, other specified